=== PATIENT | male | born 1945 | race Caucasian/White ===

== ENCOUNTER 2016-10-04 23:55 | Emergency (ER) | payer BC ==
[~2016-10-04] VITALS: Ht 180.3 cm; Wt 80.1 kg
[~2016-10-04 23:55] MED LIST: BUPRTAB PO; ENOX1INJ9 SQ; EPP3/2 IM; LAMO200T PO; LORA-741 PO; PANT1TAB48 PO; PSYL55.43 PO
[2016-10-05] VITALS: TEMP 36.9; Ht 180.3 cm; Wt 80.1 kg
[2016-10-05] MEDS ORDERED: SODIUM CHLORIDE 0.9% 1000ML 250 ML IV STA (00:21)
[2016-10-05] MEDS ORDERED: SODIUM CHLORIDE 0.9% 1000ML 1,000 ML IV STA (00:21)
[2016-10-05] MEDS ORDERED: ONDANSETRON INJ 2 MG/ML 2 ML VIAL IV STA ×2 (00:21→03:22)
[2016-10-05] MEDS ORDERED: OPTIRAY 320 IV PRN (00:30)
--- NOTE | 2016-10-05 00:30 | EMERGENCY ROOM VISIT NOTE ---
History Report prepared by Brando: Le Chiu Under the Supervision of: Dr. Júnior Corcoran M.D. First contact with patient: 00:10 Chief Complaint: ABDOMINAL PAIN Stated Complaint: DISTENDED BELLY,ABDOMINAL AND LWR BACK PAIN History of Present Illness The patient is a 71 year old male who presents to the Emergency Room with complaints of worsening abdominal pain for the past 10 days. His pain radiates into his lower back. He went to the [facility] 6 days ago and had an abdominal x-ray that was normal. 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 He states that his cancer has returned and he was supposed to have surgery yesterday to remove the tumor. He was in [place] yesterday for his surgery and took his normal medications in the morning. After this he became very nauseated and diaphoretic. He vomited and passed out. His called EMS. She states the patient was pale and weak. He was also experiencing watery diarrhea. The patient was taken to the ED at [place]. He felt better after receiving Zofran and fluids. He was discharged home without having his surgery. The patient states that today his pain has persisted. He rates his current pain as a 7/10 in severity. He is feeling constipated and bloated. He had two bowel movements today but feels as though he has not been able to fully evacuate his bowels. He notes sharp abdominal pains when his bowels are moving. The patient denies dysuria and fever. He notes that morning nausea is normal for him. Source of History: patient, spouse/significant other Onset: 10 days ago Position: abdomen Symptom Intensity: 7/10 Quality: sharp Timing: worsening Modifying Factors (Relieving): anti-emetics, other (fluids) Associated Symptoms: + LOC, + back pain, + diaphoresis, + nausea, + vomiting , + weakness, No fevers, No urinary symptoms Review of Systems See HPI for pertinent positives & negatives. A total of 10 systems reviewed and were otherwise negative. Past Medical & Surgical Medical Problems: (1) GERD (gastroesophageal reflux disease) (2) GI bleed (3) H/O endoscopy (4) History of cancer Family History Cancer Social History Smoking Status: Never Smoker Alcohol Use: occasionally Drug Use: none Marital Status: Housing Status: lives with family Occupation Status: retired Current/Historical Medications Scheduled Bupropion Hcl (Wellbutrin Xl), 150 MG PO QAM Cholecalciferol (Vitamin D3), 1,000 UNITS PO DAILY Cyanocobalamin (Vitamin B-12), Unknown Dose PO DAILY Folic Acid (Folvite), 400 MCG PO DAILY Lamotrigine (Lamictal), 200 MG PO BID Pantoprazole (Protonix), 40 MG PO QAM Psyllium (Metamucil Powder), 1 TSP PO HS Scheduled PRN Acetaminophen (Tylenol), 500 MG PO Q8 PRN for Pain or Fever Epinephrine (Epipen), 0.3 MG IM UD PRN for ALLERGIC REACTION Lorazepam (Ativan), 0.5 MG PO Q6H PRN for Anxiety/Agitation Ondansetron Hcl (Zofran), 8 MG PO Q6H PRN for Nausea Polyethylene Glycol 3350 (Miralax), 17 GM PO DAILY PRN for Constipation Allergies Coded Allergies: Sulfa Antibiotics (Verified Allergy, Severe, ANAPHYLAXIS, BAD RASH, ) Doxycycline (Verified Allergy, Unknown, ITCHYNESS, 10/04/15) Yellow Jacket (Verified Allergy, Unknown, HIVES-SEVERE IN PAST-HAS EPIPEN , 10/04/15) NSAIDs (Verified Adverse Reaction, Unknown, gi bleed, 05/13/16) Physical Exam Vital Signs Date Time Temp Pulse Resp B/P Pulse Ox O2 Delivery O2 Flow Rate FiO2 10/05/16 00:00 36.9 71 18 157/75 100 Room Air Physical Exam GENERAL: Patient is in no acute distress. HEENT: No acute trauma, normocephalic atraumatic, mucous membranes moist, no nasal congestion, no scleral icterus. NECK: No stridor, no adenopathy, no meningismus, trachea is midline. LUNGS: Clear to auscultation bilaterally, no wheeze, no rhonchi, breath sounds equal. HEART: Without murmurs gallops or rubs, regular rate and rhythm. ABDOMEN: Soft, bilateral lower quadrant tenderness to palpation, bowel sounds positive and hyperactive, no hernias, no peritonitis. EXTREMITIES: No cyanosis or edema, full range of motion of all the joints without pain or difficulty, no signs for acute trauma. NEUROLOGIC: Oriented x 3, no acute motor or sensory deficits, no focal weakness. SKIN: No rash, no jaundice, no diaphoresis. Medical Decision & Procedures Laboratory Results 10/05/16 00:37 Red Blood Count 4.37, Mean Corpuscular Volume 83.1, Mean Corpuscular Hemoglobin 27.5, Mean Corpuscular Hemoglobin Concent 33.1, Mean Platelet Volume 11.1, Neutrophils (%) (Auto) 70.9, Lymphocytes (%) (Auto) 18.0, Monocytes (%) (Auto) 9.7, Eosinophils (%) (Auto) 0.8, Basophils (%) (Auto) 0.3, Neutrophils # (Auto) 6.18, Lymphocytes # (Auto) 1.57, Monocytes # (Auto) 0.85, Eosinophils # (Auto) 0.07, Basophils # (Auto) 0.03 10/05/16 00:37 Test 10/05/16 00:37 10/05/16 01:00 White Blood Count 8.73 K/uL (4.8-10.8) Red Blood Count 4.37 M/uL (4.7-6.1) Hemoglobin 12.0 g/dL (14.0-18.0) Hematocrit 36.3 % (42-52) Mean Corpuscular Volume 83.1 fL (80-100) Mean Corpuscular Hemoglobin 27.5 pg (25-34) Mean Corpuscular Hemoglobin Concent 33.1 g/dl (32-36) Platelet Count 247 K/uL (130-400) Mean Platelet Volume 11.1 fL (7.4-10.4) Neutrophils (%) (Auto) 70.9 % Lymphocytes (%) (Auto) 18.0 % Monocytes (%) (Auto) 9.7 % Eosinophils (%) (Auto) 0.8 % Basophils (%) (Auto) 0.3 % Neutrophils # (Auto) 6.18 K/uL (1.4-6.5) Lymphocytes # (Auto) 1.57 K/uL (1.2-3.4) Monocytes # (Auto) 0.85 K/uL (0.11-0.59) Eosinophils # (Auto) 0.07 K/uL (0-0.5) Basophils # (Auto) 0.03 K/uL (0-0.2) RDW Standard Deviation 46.2 fL (36.4-46.3) RDW Coefficient of Variation 15.2 % (11.5-14.5) Immature Granulocyte % (Auto) 0.3 % Immature Granulocyte # (Auto) 0.03 K/uL (0.00-0.02) Prothrombin Time 10.8 SECONDS (9.0-12.0) Prothromb Time International Ratio 1.0 (0.9-1.1) Activated Partial Thromboplast Time 28.1 SECONDS (21.0-31.0) Partial Thromboplastin Ratio 1.1 Anion Gap 7.0 mmol/L (3-11) Est Creatinine Clear Calc Drug Dose 50.0 ml/min Estimated GFR () 57.4 Estimated GFR (Non- 49.5 BUN/Creatinine Ratio 10.9 (10-20) Calcium Level 8.3 mg/dl (8.5-10.1) Total Bilirubin 0.3 mg/dl (0.2-1) Aspartate Amino Transf (AST/SGOT) 16 U/L (15-37) Alanine Aminotransferase (ALT/SGPT) 23 U/L (12-78) Alkaline Phosphatase 79 U/L (45-117) Total Protein 6.9 gm/dl (6.4-8.2) Albumin 3.9 gm/dl (3.4-5.0) Globulin 3.0 gm/dl (2.5-4.0) Albumin/Globulin Ratio 1.3 (0.9-2) Lipase 273 U/L (73-393) Lactic Acid Level 1.0 mmol/L (0.4-2.0) Laboratory results reviewed by me. Medications Administered Medications (Trade) Dose Ordered Sig/Sapna Route Start Time Stop Time Status Last Admin Dose Admin Sodium Chloride (Nss 1000ml) 250 ml @ 999 mls/hr Q16M STAT IV 10/05/16 00:21 10/05/16 00:36 DC 10/05/16 01:00 999 MLS/HR Ondansetron HCl 4 mg 4 mg NOW STAT IV 10/05/16 00:21 10/05/16 00:24 DC 10/05/16 01:00 4 MG Sodium Chloride (Nss 1000ml) 1,000 ml @ 125 mls/hr Q8H STAT IV 10/05/16 00:21 10/05/16 08:20 10/05/16 01:00 125 MLS/HR ED Course 0010: The patient was evaluated in room B10. A complete history and physical exam was performed. 0021: NSS 1000 ml @ 125 mls/hr IV, Zofran 4 mg IV, NSS 250 ml @ 999 mls/hr IV 0122: I reassessed the patient at this time and updated him on the lab results. I answered all pertaining questions that he had. 0230: The patient was signed out to Dr. Lombardi at the change of shift. Medical Decision Differential diagnoses includes diverticulitis, bowel obstruction, intraabdominal mass, dehydration, electrolyte imbalance, colitis, prostatitis, UTI, hernia, musculoskeletal pain. There is no leukocytosis or concerning anemia. No significant electrolyte abnormality, kidney failure, hepatitis or pancreatitis. Lactic acid level is not elevated making bowel ischemia less likely. Urinalysis result is pending. On exam, the patient did not have peritonitis. His bowel sounds were hyperactive. There was no obvious hernia. He was not toxic or febrile. The patient presents with escalating abdominal pain. A CT of the abdomen and pelvis has been ordered for the possibility of diverticulitis, colitis or intra- abdominal mass. As noted above, we are still awaiting his urinalysis results- he has not yet provided a sample. The patient received IV saline, IV Zofran, he is drinking his oral contrast for the CT. He does not want anything for pain. The case is going to be assumed by Dr. Lombardi, she is the oncoming doctor at the change of shift. Please see her notes for the final results from the CT scan as well as the patient's final disposition and plan. At this point, the cause for the pain is unclear. Impression Primary Impression: Lower abdominal pain Scribe Attestation The scribe's documentation has been prepared under my direction and personally reviewed by me in its entirety. I confirm that the note above accurately reflects all work, treatment, procedures, and medical decision making performed by me. Departure Information Dispostion Still a Patient Referrals Balaji Mejia M.D. (PCP) Patient Instructions A Signature Page
[2016-10-05 00:51] LABS: BASO % 0.3 %; BASO ABS # 0.03 K/uL (0-0.2); COMPLETE YES; EOS % 0.8 %; HEMATOCRIT 36.3 % (42-52); IG% 0.3 %; LYMPH ABS # 1.57 K/uL (1.2-3.4); MEAN CELL VOLUME 83.1 fL (80-100); MEAN CORPUSCULAR HEMOGLOBIN 27.5 pg (25-34); MEAN CORPUSCULAR HGB CONC 33.1 g/dl (32-36); MEAN PLATELET VOLUME 11.1 fL (7.4-10.4); MONO % 9.7 %; NEUT % 70.9 %; PLATELET COUNT 247 K/uL (130-400); RED BLOOD COUNT 4.37 M/uL (4.7-6.1); WHITE BLOOD COUNT 8.73 K/uL (4.8-10.8)
[2016-10-05] MEDS ORDERED: POLY335019 PO (00:56)
[2016-10-05] MEDS ORDERED: ONDA8TAB6 PO (00:57)
[2016-10-05] MEDS ORDERED: FOLI400T41 PO (00:58)
[2016-10-05] MEDS ORDERED: CYAN500T PO (00:59)
[2016-10-05] MEDS ORDERED: ACET-1256 PO (01:00)
[2016-10-05 01:01] LABS: PARTIAL THROMBOPLASTIN RATIO 1.1; PROTHROMBIN TIME (PATIENT) 10.8 SECONDS (9.0-12.0)
[2016-10-05] MEDS ORDERED: CHOL1000 PO (01:01)
[2016-10-05 01:10] LABS: BUN/CREATININE RATIO 10.9 (10-20); CALCIUM 8.3 mg/dl (8.5-10.1); CREATININE 1.4 mg/dl (0.60-1.40); POTASSIUM 3.9 mmol/L (3.5-5.1)
[2016-10-05 01:13] LABS: ALB/GLOB RATIO 1.3 (0.9-2)
[2016-10-05] MEDS ORDERED: ENOXAPARIN 40 MG/0.4 ML SYR SQ ONE (02:00)
[2016-10-05 02:04] LABS: URINE APPEARANCE CLEAR (CLEAR); URINE BILIRUBIN NEG (NEG); URINE COLOR YELLOW; URINE NITRITE NEG (NEG); URINE SPECIFIC GRAVITY 1.004 (1.000-1.030); UROBILINOGEN NEG (NEG); ZZUR CULT IF INDIC CLEAN CATCH NO
[2016-10-05 02:09] LABS: MANUAL MICROSCOPIC REQUIRED? NO; REVIEW REQ? NO
[2016-10-05] MEDS ORDERED: HYDROmorphone INJ 1 MG/ML SYR IV STA (03:15)
[2016-10-05] MEDS ORDERED: MoRPHine SULFATE 4 MG/ML 1 ML CARP\\VIAL IV STA (03:22)
--- NOTE | 2016-10-05 04:34 | EMERGENCY ROOM VISIT NOTE ---
ED Visit Note First contact with patient: 01:19 This case was signed out to me at change of shift awaiting CT scan of the abdomen/pelvis. The patient is currently taking an oral prep 02:00: I checked on the patient at this time and he is taking his prep without any difficulty. The patient takes Lovenox shots daily for stuttering priapism. He was given his usual dose at 40 mg subcutaneous. 0320: The patient was complaining of increased left-sided abdominal pain after returning from CAT scan. He was given 4 mg of IV morphine and 4 mg of IV Zofran. Stat rad interpreted the contrasted CAT scan of the abdomen and pelvis: Complex, partially cystic or necrotic mass lesion in the pelvis measuring about 7.7 cm. Adjacent fluid collection measuring 3 x 1.5 cm. Small hiatal hernia. 2 small to characterize low attenuation focus in the left kidney. Sutures related to the bowel. Few colonic diverticula without diverticulitis. The prostate is not visualized. Old right rib fractures. Spondylolysis at L5 with spondylolisthesis at L5-S1. 0355: I reviewed the results of the CT scan with the patient and his . He is more comfortable at this time after receiving the morphine. I will discuss the case with surgery in [place]. 0425: I discussed the case with Dr. Campos from [place]. He is the patient's surgeon. He is quite familiar with the case. I reviewed the results of the CT scan with him. He would like to see the patient in follow-up in clinic this week. They're office will contact the patient on Friday morning with an appointment. We will make a CD with the CT scan on it for their review. The patient was instructed to use oxycodone for pain. If his pain becomes unbearable or he develops a fever, he should contact the on-call surgical team at [place] at the direction of Dr. Campos.
[2016-10-05] MEDS ORDERED: OXYC1TAB3 PO (04:57)
[2016-10-05 05:02] VITALS: BP 149/76; PULSE 69; O2SAT 96
--- NOTE | 2016-10-05 08:33 | DIAGNOSTIC IMAGING REPORT ---
CT OF THE ABDOMEN AND PELVIS WITH CONTRAST CLINICAL HISTORY: Abdominal pain and distention. History of GI stromal tumor, lung cancer and prostate cancer. COMPARISON STUDY: CT of the abdomen and pelvis August 12, 2016 and abdominal series September 28, 2016 TECHNIQUE: Following IV administration of 119 mL of Optiray-320, axial images of the abdomen and pelvis were obtained from the lung bases to the proximal femurs. Images were reviewed in the axial, sagittal, and coronal planes. IV contrast was administered without complication. Oral contrast was administered. CT DOSE: 368.44 mGy.cm FINDINGS: Bilateral gynecomastia is noted. The liver, spleen, adrenal glands, kidneys and pancreas are unremarkable. A low-attenuation subcentimeter left renal lesion is likely benign. There is no hydronephrosis. The appendix is normal. There is no evidence for a bowel obstruction. Postsurgical findings adjacent to the medial base of the cecum are noted. Note is made of a 7 x 6.3 x 5 cm necrotic peripherally enhancing mass within the central pelvis, located anterior to the rectum and superior to the bladder. This has increased in size since exam of August 12, 2016. There is a 4.2 x 2.1 cm cystic abnormality along the right aspect of this mass. There is trace ascites. No pneumatosis, free air or portal venous gas is present. The prostate gland is not visualized. No suspicious osseous lesions are identified. IMPRESSION: 1. Significant interval increase in size of the previously described central pelvic mass which now appears necrotic. This is highly suggestive of a neoplastic process and may reflect a peritoneal implant. Small adjacent cystic abnormality may reflect loculated fluid or necrotic implant. 2. No evidence for a bowel obstruction. Otherwise, unchanged appearance of the abdomen and pelvis. Electronically signed by: Nadir Doyle M.D. 10/05/2016 8:31 AM Dictated Date/Time: 10/05/2016 8:14 AM
== END 2016-10-05 05:02 | disposition home or self-care (01) ==
LOC: C.EDB 23:58
DX: R10.30 Lower abdominal pain, unspecified (principal); K21.9 Gastro-esophageal reflux disease without esophagitis; R11.2 Nausea with vomiting, unspecified; Z85.9 Personal history of malignant neoplasm, unspecified; Z79.899 Other long term (current) drug therapy; Z88.2 Allergy status to sulfonamides; Z88.8 Allergy status to other drugs, medicaments and biological substances; Z91.030 Bee allergy status; Z80.9 Family history of malignant neoplasm, unspecified; K44.9 Diaphragmatic hernia without obstruction or gangrene; N20.0 Calculus of kidney; K57.90 Diverticulosis of intestine, part unspecified, without perforation or abscess without bleeding; M47.16 Other spondylosis with myelopathy, lumbar region; M43.18 Spondylolisthesis, sacral and sacrococcygeal region

== ENCOUNTER → 2016-10-31 | Outpatient (CLI) | payer BC ==
[~2016-10-31] MED LIST changes: +ACET-1256 PO; +CHOL1000 PO; +CYAN500T PO; -ENOX1INJ9 SQ; +ENOX40IN SQ; +FOLI400T41 PO; +ONDA8TAB6 PO; +OXYC1TAB3 PO; +POLY335019 PO; +PSYL58.636 PO; +RANI300T PO; +RXC5 PO; +SUNI37.5 PO; +TRAM-10 PO; +TYLOTC500 PO
== END | disposition home or self-care (01) ==
LOC: C.LABSPEC 13:40
PROVIDERS: ATTEND Surgery
DX: C49.A0 Gastrointestinal stromal tumor, unspecified site (principal); R19.5 Other fecal abnormalities

== ENCOUNTER → 2016-12-18 | Outpatient (CLI) | payer BC ==
[2016-12-18 17:00] LABS: BASO % 0.3 %; BASO ABS # 0.01 K/uL (0-0.2); COMPLETE YES; EOS % 3.4 %; HEMATOCRIT 33.6 % (42-52); IG% 0.3 %; LYMPH % 14.1 %; MEAN CELL VOLUME 77.4 fL (80-100); MEAN CORPUSCULAR HEMOGLOBIN 24.7 pg (25-34); MEAN CORPUSCULAR HGB CONC 31.8 g/dl (32-36); MEAN PLATELET VOLUME 11.1 fL (7.4-10.4); MONO % 6.2 %; NEUT % 75.7 %; PLATELET COUNT 121 K/uL (130-400); RED BLOOD COUNT 4.34 M/uL (4.7-6.1); WHITE BLOOD COUNT 3.54 K/uL (4.8-10.8)
[2016-12-18 17:18] LABS: ALB/GLOB RATIO 1.1 (0.9-2); ALKALINE PHOSPHATASE 91 U/L (45-117); ALT/SGPT 28 U/L (12-78); AST/SGOT 28 U/L (15-37); BLOOD UREA NITROGEN 18 mg/dl (7-18); BUN/CREATININE RATIO 12.6 (10-20); CALCIUM 8.5 mg/dl (8.5-10.1); CARBON DIOXIDE 25 mmol/L (21-32); CHLORIDE 108 mmol/L (98-107); GLUCOSE 131 mg/dl (70-99); SODIUM 140 mmol/L (136-145)
[2016-12-18 17:42] LABS: URINE APPEARANCE TURBID (CLEAR); URINE BILIRUBIN NEG (NEG); URINE COLOR DK YELLOW; URINE NITRITE NEG (NEG); URINE SPECIFIC GRAVITY 1.033 (1.000-1.030); UROBILINOGEN NEG (NEG)
[2016-12-18 17:51] LABS: MANUAL MICROSCOPIC REQUIRED? NO; REVIEW REQ? NO
== END | disposition home or self-care (01) ==
LOC: C.LABBC 15:24
PROVIDERS: ATTEND Internal Medicine
DX: R53.83 Other fatigue (principal)

== ENCOUNTER → 2016-12-20 | Outpatient (CLI) | payer BC ==
--- NOTE | 2016-12-20 13:09 | DIAGNOSTIC IMAGING REPORT ---
CHEST 2 VIEWS ROUTINE CLINICAL HISTORY: R50.9 [id number] COMPARISON STUDY: 09/28/2016 FINDINGS: The cardiac and mediastinal contours are normal. There is no evidence of focal pulmonary consolidation. There is no evidence of failure. No pleural effusions are visualized.[ There is a stable scarlike opacity within the left midlung zone laterally. IMPRESSION: Stable scarlike density within the left midlung zone laterally. No acute findings. Electronically signed by: Job Redding M.D. 12/20/2016 1:08 PM Dictated Date/Time: 12/20/2016 1:07 PM
[2016-12-20 16:35] LABS: MEAN CORPUSCULAR HGB CONC 31.6 g/dl (32-36)
[2016-12-20 16:59] LABS: HEMATOCRIT 34.8 % (42-52); MEAN CELL VOLUME 79.3 fL (80-100); MEAN CORPUSCULAR HEMOGLOBIN 25.1 pg (25-34); RED BLOOD COUNT 4.39 M/uL (4.7-6.1); WHITE BLOOD COUNT 3.39 K/uL (4.8-10.8)
[2016-12-20 17:25] LABS: BASO % 0.9 %; BASO ABS # 0.03 K/uL (0-0.2); COMPLETE YES; EOS % 1.8 %; GIANT PLATELETS 1+; IG% 0.6 %; LARGE PLATELETS 2+; LYMPH % 19.2 %; LYMPH ABS # 0.65 K/uL (1.2-3.4); MEAN PLATELET VOLUME 11.3 fL (7.4-10.4); MONO % 7.1 %; NEUT % 70.4 %; PLATELET COUNT 101 K/uL (130-400); PLT ESTIMATE DECREASED
== END | disposition home or self-care (01) ==
LOC: C.RADBC 12:37
PROVIDERS: ATTEND Internal Medicine
DX: R50.9 Fever, unspecified (principal)

== ENCOUNTER 2017-02-13 07:02 | Inpatient (IN) | payer BC, OTHER ==
[~2017-02-13] VITALS: Ht 182.9 cm; Wt 75.7 kg
[~2017-02-13 07:02] MED LIST changes: -ENOX40IN SQ; -PSYL58.636 PO; -RANI300T PO; -RXC5 PO; -SUNI37.5 PO; -TRAM-10 PO; -TYLOTC500 PO
[2017-02-13] MEDS ORDERED: SUNI37.5 PO (07:12)
[2017-02-13] MEDS ORDERED: PSYL58.636 PO (07:12)
[2017-02-13] MEDS ORDERED: RANI300T PO (07:12)
[2017-02-13] MEDS ORDERED: ENOX40IN SQ (07:13)
[2017-02-13] MEDS ORDERED: SODIUM CHLORIDE 0.9% 1000ML 1,000 ML IV STA (07:25)
[2017-02-13] MEDS ORDERED: PROMETHAZINE HCL INJ 12.5 MG in SODIUM CHLORIDE 0.9% 50ML 50 ML IV STA (07:25)
--- NOTE | 2017-02-13 07:35 | EMERGENCY ROOM VISIT NOTE ---
History Report prepared by Brando: Memo Hurley Under the Supervision of: Dr. Sarina Brody M.D. First contact with patient: 07:12 Chief Complaint: ABDOMINAL PAIN Stated Complaint: ABDOMINAL PAIN Nursing Triage Summary: nauseated with abdomen pain started at 0300. hx with abd surgery History of Present Illness The patient is a 71 year old male who presents to the Emergency Room with complaints of intermittent abdominal pain. The patient states that he has been experiencing intermittent "sharp" and "intense" abdominal pains since he had two gastrointestinal tumors removed on October 17 of this year. His pain on set at 0300 this morning, 4.5 hours prior to arrival. The pain is diffuse across his abdomen and is not localized to any one area. He notes that his pain today is much worse than it has been in the past. The patient notes that he had a normal bowel movement this morning, which did not relieve or worsen the pain to any degree. He also felt nauseated and diaphoretic this morning and felt as though he may pass out. He did not lose consciousness at anytime, and took an 8 mg Zofran tablet to remedy his nausea. The patient has a history of GERD, but denies that this pain feels like his normal "burning" with GERD flairs. He received Morphine via EMS prior to arrival. 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 A total of 10 systems reviewed and were otherwise negative. Past Medical & Surgical Medical Problems: (1) GERD (gastroesophageal reflux disease) (2) GI bleed (3) H/O endoscopy (4) History of cancer (5) SBO (small bowel obstruction) Family History Cancer Social History Smoking Status: Former Smoker Alcohol Use: occasionally Drug Use: none Marital Status: Housing Status: lives with family Occupation Status: retired Current/Historical Medications Scheduled Bupropion Hcl (Wellbutrin Xl), 150 MG PO QAM Cholecalciferol (Vitamin D3), 1,000 UNITS PO DAILY Cyanocobalamin (Vitamin B-12), 500 MCG PO DAILY Enoxaparin (Lovenox), 40 MG SQ HS Folic Acid (Folvite), 400 MCG PO DAILY Lamotrigine (Lamictal), 200 MG PO BID Pantoprazole (Protonix), 40 MG PO QAM Psyllium (Metamucil Fiber), 1 DOSE PO HS Ranitidine Hcl (Zantac), 300 MG PO HS Sunitinib Malate (Sutent), 37.5 MG PO QPM Scheduled PRN Acetaminophen (Tylenol), 1,000 MG PO Q6 PRN for Pain or Fever Epinephrine (Epipen), 0.3 MG IM UD PRN for ALLERGIC REACTION Lorazepam (Ativan), 0.5 MG PO Q6H PRN for Anxiety/Agitation Ondansetron Hcl (Zofran), 8 MG PO Q6H PRN for Nausea Oxycodone HCl (Oxycodone HCl), 5-10 MG PO Q6H PRN for Pain Tramadol (Ultram), 50 MG PO Q8H PRN for Pain Allergies Coded Allergies: Sulfa Antibiotics (Verified Allergy, Severe, ANAPHYLAXIS, BAD RASH, ) Doxycycline (Verified Allergy, Unknown, ITCHYNESS, 02/13/17) Yellow Jacket (Verified Allergy, Unknown, HIVES-SEVERE IN PAST-HAS EPIPEN , 02/13/17) Hydromorphone (Unverified Adverse Reaction, Intermediate, Dizzy, 02/13/17) NSAIDs (Verified Adverse Reaction, Unknown, gi bleed, 02/13/17) Physical Exam Vital Signs Date Time Temp Pulse Resp B/P Pulse Ox O2 Delivery O2 Flow Rate FiO2 02/13/17 09:14 62 16 151/84 100 Room Air 02/13/17 07:57 56 02/13/17 07:44 58 16 98 Room Air 02/13/17 07:09 36.4 80 18 168/83 98 Room Air Physical Exam Vital signs reviewed. General: Well-appearing elderly male, in no significant distress. HEENT: No scleral icterus, PERRLA, neck supple. Atraumatic. Cardiovascular: Regular rate and rhythm, no extra sounds. Pulmonary: Clear to auscultation bilaterally, normal work of breathing. Abdomen: Soft, with mild upper abdominal tenderness. mild distention, no tympani to percussion. Positive bowel sounds. Musculoskeletal: Atraumatic, no peripheral edema. Neurologic: Patient awake alert and oriented x 3, full strength in all 4 extremities. Cranial nerves 2 through 12 grossly intact. Skin: Warm, dry, no rash Medical Decision & Procedures ER Provider Diagnostic Interpretation: Radiology results as stated below per my review and radiologist interpretation: CT ABD/PELVIS IV AND ORAL CONT CLINICAL HISTORY: Central abdominal pain. Bloating. Possible small bowel obstruction. COMPARISON STUDY: 10/05/2016 TECHNIQUE: Following the IV administration of 93 mL of Optiray-320, CT scan of the abdomen and pelvis was performed from the lung bases to the proximal femurs. Images are reviewed in the axial, sagittal, and coronal planes. IV contrast was administered without complication. CT DOSE: 619.64 mGycm FINDINGS: Lower chest: There are mild dependent atelectatic changes. Liver: There is mild hepatic steatosis. No focal masses are visualized. Gallbladder: Unremarkable. Spleen: Normal in size and attenuation. Pancreas: Unremarkable. Adrenal glands: Unremarkable. Kidneys: There is symmetric renal cortical enhancement. The kidneys are normal in size without hydronephrosis. Bowel: Postsurgical changes are present. Several suture lines are visualized. There is a mildly dilated right mid abdominal small bowel loop measuring 34 mm in diameter. There are thick walled central and right lower quadrant small bowel loops. There are multiple fluid-filled small bowel loops. The distal small bowel is of normal caliber. The findings are consistent with a partial small bowel obstruction. Peritoneum: There is a small amount of free pelvic fluid present. No free air is visualized. Vasculature: The abdominal aorta is normal in course and caliber. Adenopathy: None. Pelvic viscera: The bladder, and pelvic viscera are unremarkable. Skeletal structures: There is bilateral L5 spondylolysis. There is a grade 1 spondylolisthesis of L5 and S1. IMPRESSION: 1. Mildly dilated fluid-filled small bowel loops with normal caliber distal small bowel. The findings are consistent with a partial or early small bowel obstruction 2. Multiple thick walled right mid and lower quadrant small bowel loops, consistent with a nonspecific enteritis. 3. Small amount of interloop and pelvic fluid. 4. No free air, pneumatosis, or portal venous gas identified Electronically signed by: Job Redding M.D. 02/13/2017 10:37 AM Dictated Date/Time: 02/13/2017 10:29 AM Laboratory Results Test 02/13/17 07:40 02/13/17 09:45 Immature Granulocyte % (Auto) 0.2 % White Blood Count 4.77 K/uL (4.8-10.8) Red Blood Count 4.56 M/uL (4.7-6.1) Hemoglobin 11.7 g/dL (14.0-18.0) Hematocrit 36.2 % (42-52) Mean Corpuscular Volume 79.4 fL (80-100) Mean Corpuscular Hemoglobin 25.7 pg (25-34) Mean Corpuscular Hemoglobin Concent 32.3 g/dl (32-36) Platelet Count 160 K/uL (130-400) Mean Platelet Volume 10.9 fL (7.4-10.4) Neutrophils (%) (Auto) 74.7 % Lymphocytes (%) (Auto) 15.9 % Monocytes (%) (Auto) 8.2 % Eosinophils (%) (Auto) 0.6 % Basophils (%) (Auto) 0.4 % Neutrophils # (Auto) 3.56 K/uL (1.4-6.5) Lymphocytes # (Auto) 0.76 K/uL (1.2-3.4) Monocytes # (Auto) 0.39 K/uL (0.11-0.59) Eosinophils # (Auto) 0.03 K/uL (0-0.5) Basophils # (Auto) 0.02 K/uL (0-0.2) Immature Granulocyte # (Auto) 0.01 K/uL (0.00-0.02) Prothrombin Time 10.3 SECONDS (9.0-12.0) Prothromb Time International Ratio 1.0 (0.9-1.1) Activated Partial Thromboplast Time 25.3 SECONDS (21.0-31.0) Partial Thromboplastin Ratio 1.0 Total Bilirubin 0.4 mg/dl (0.2-1) Direct Bilirubin 0.1 mg/dl (0-0.2) Aspartate Amino Transf (AST/SGOT) 17 U/L (15-37) Alanine Aminotransferase (ALT/SGPT) 25 U/L (12-78) Alkaline Phosphatase 101 U/L (45-117) Total Protein 6.7 gm/dl (6.4-8.2) Albumin 3.8 gm/dl (3.4-5.0) Lipase 239 U/L (73-393) Thyroid Stimulating Hormone (TSH) 5.060 uIu/ml (0.300-4.500) Urine Color YELLOW Urine Appearance CLEAR (CLEAR) Urine pH 7.5 (4.5-7.5) Urine Specific [place] 1.014 (1.000-1.030) Urine Protein NEG (NEG) Urine Glucose (UA) NEG (NEG) Urine Ketones NEG (NEG) Urine Occult Blood NEG (NEG) Urine Nitrite NEG (NEG) Urine Bilirubin NEG (NEG) Urine Urobilinogen NEG (NEG) Urine Leukocyte Esterase NEG (NEG) Laboratory results per my review. Medications Administered Medications (Trade) Dose Ordered Sig/Sapna Route Start Time Stop Time Status Last Admin Dose Admin Sodium Chloride 1,000 ml @ 125 mls/hr Q8H STAT IV 02/13/17 07:25 02/13/17 12:45 DC 02/13/17 07:40 125 MLS/HR Promethazine HCl/ Sodium Chloride (Phenergan Inj/ Nss 50ml) 50.5 ml @ 204 mls/hr NOW STAT IV 02/13/17 07:25 02/13/17 07:39 DC 02/13/17 07:25 204 MLS/HR Morphine Sulfate (MoRPHine SULFATE INJ) 3 mg Q3H PRN IV 02/13/17 11:00 02/14/17 13:25 DC 02/13/17 13:48 3 MG ED Course 0717: Past medical records reviewed. The patient was evaluated in room B11B. A complete history and physical examination was performed. 0725: Ordered Promethazine HCl 50.5 mL @ 204 mL/hr IV, Sodium Chloride 1000 mL @ 125 mL/hr IV. 1053: I discussed the case with Dr. Diamante Juarez [facility] Hospitalist, he will evaluate the patient for further treatment. Medical Decision Differential diagnosis: Etiologies such as appendicitis, diverticulitis, PUD, biliary pathology, UTI, pancreatitis, obstruction, mesenteric ischemia, aortic pathology, infections, inflammatory bowel disease, renal colic, as well as others were entertained. This patient was evaluated and appeared to be in no significant distress. IV access was obtained and laboratory work was drawn. 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 He was hydrated with normal saline solution. CT scan of the abdomen and pelvis was performed and reveals evidence of a likely partial small bowel obstruction. The patient was given IV Phenergan for continued nausea despite his Zofran at home. IV hydration was continued. The case was discussed with the hospitalist service, Dr. Bobby, who has agreed to evaluate the patient for admission and further management. Consults Time Called: 1045 Consulting Physician: Dr. Diamante [facility] Hospitalist Returned Call: [phone] I discussed the case with Dr. Diamante [facility] Hospitalist, he will evaluate the patient for further treatment. Impression Primary Impression: Partial small bowel obstruction Scribe Attestation The scribe's documentation has been prepared under my direction and personally reviewed by me in its entirety. I confirm that the note above accurately reflects all work, treatment, procedures, and medical decision making performed by me. Departure Information Dispostion Being Evaluated By Hospitalist Prescriptions Oxycodone HCl (Oxycodone HCl) 5 Mg Tab 5-10 MG PO Q6H Y for Pain, #30 Prov: Gustavo Carroll M.D. 02/14/17 Tramadol (Ultram) 50 Mg Tab 50 MG PO Q8H Y for Pain, #60 TAB Prov: Gustavo Carroll M.D. 02/14/17 Acetaminophen (Tylenol) 500 Mg Tab 1000 MG PO Q6 Y for Pain or Fever, #120 TAB Prov: Gustavo Carroll M.D. 02/14/17 Referrals Balaji Mejia M.D. (PCP) Patient Instructions My [facility]
[2017-02-13 07:48] LABS: BASO % 0.4 %; BASO ABS # 0.02 K/uL (0-0.2); COMPLETE YES; EOS % 0.6 %; HEMATOCRIT 36.2 % (42-52); IG% 0.2 %; LYMPH % 15.9 %; LYMPH ABS # 0.76 K/uL (1.2-3.4); MEAN CELL VOLUME 79.4 fL (80-100); MEAN CORPUSCULAR HEMOGLOBIN 25.7 pg (25-34); MEAN CORPUSCULAR HGB CONC 32.3 g/dl (32-36); MEAN PLATELET VOLUME 10.9 fL (7.4-10.4); MONO % 8.2 %; NEUT % 74.7 %; PLATELET COUNT 160 K/uL (130-400); RED BLOOD COUNT 4.56 M/uL (4.7-6.1); WHITE BLOOD COUNT 4.77 K/uL (4.8-10.8)
[2017-02-13 08:06] LABS: BUN/CREATININE RATIO 19.3 (10-20); CALCIUM 8.3 mg/dl (8.5-10.1); CREATININE 1.2 mg/dl (0.60-1.40); POTASSIUM 3.9 mmol/L (3.5-5.1)
[2017-02-13 08:17] LABS: THYROID STIMULATING HORMONE 5.06 uIu/ml (0.300-4.500)
[2017-02-13 10:09] LABS: URINE APPEARANCE CLEAR (CLEAR); URINE BILIRUBIN NEG (NEG); URINE COLOR YELLOW; URINE NITRITE NEG (NEG); URINE PH 7.5 (4.5-7.5); URINE SPECIFIC GRAVITY 1.014 (1.000-1.030); UROBILINOGEN NEG (NEG); ZZUR CULT IF INDIC CLEAN CATCH NO
[2017-02-13 10:16] LABS: MANUAL MICROSCOPIC REQUIRED? NO; REVIEW REQ? NO
[2017-02-13] MEDS ORDERED: OPTIRAY 320 IV PRN (10:30)
--- NOTE | 2017-02-13 10:38 | DIAGNOSTIC IMAGING REPORT ---
CT ABD/PELVIS IV AND ORAL CONT CLINICAL HISTORY: Central abdominal pain. Bloating. Possible small bowel obstruction. COMPARISON STUDY: 10/05/2016 TECHNIQUE: Following the IV administration of 93 mL of Optiray-320, CT scan of the abdomen and pelvis was performed from the lung bases to the proximal femurs. Images are reviewed in the axial, sagittal, and coronal planes. IV contrast was administered without complication. CT DOSE: 619.64 mGycm FINDINGS: Lower chest: There are mild dependent atelectatic changes. Liver: There is mild hepatic steatosis. No focal masses are visualized. Gallbladder: Unremarkable. Spleen: Normal in size and attenuation. Pancreas: Unremarkable. Adrenal glands: Unremarkable. Kidneys: There is symmetric renal cortical enhancement. The kidneys are normal in size without hydronephrosis. Bowel: Postsurgical changes are present. Several suture lines are visualized. There is a mildly dilated right mid abdominal small bowel loop measuring 34 mm in diameter. There are thick walled central and right lower quadrant small bowel loops. There are multiple fluid-filled small bowel loops. The distal small bowel is of normal caliber. The findings are consistent with a partial small bowel obstruction. Peritoneum: There is a small amount of free pelvic fluid present. No free air is visualized. Vasculature: The abdominal aorta is normal in course and caliber. Adenopathy: None. Pelvic viscera: The bladder, and pelvic viscera are unremarkable. Skeletal structures: There is bilateral L5 spondylolysis. There is a grade 1 spondylolisthesis of L5 and S1. IMPRESSION: 1. Mildly dilated fluid-filled small bowel loops with normal caliber distal small bowel. The findings are consistent with a partial or early small bowel obstruction 2. Multiple thick walled right mid and lower quadrant small bowel loops, consistent with a nonspecific enteritis. 3. Small amount of interloop and pelvic fluid. 4. No free air, pneumatosis, or portal venous gas identified Electronically signed by: Job Redding M.D. 02/13/2017 10:37 AM Dictated Date/Time: 02/13/2017 10:29 AM
--- NOTE | 2017-02-13 10:58 | History and Physical ---
History & Physical Date & Time of Service: February 13, 2017 at 10:53 Chief Complaint: Abdominal Pain Primary Care Physician: Balaji Mejia M.D. 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 Presents with abdominal pain and nausea x 2-3 days. He states that he has had intermittent similar symptoms starting 2 weeks after his September surgery. He denies fevers, vomiting, diarrhea or constipation. A CT abdomen is consistent with a partial or early SBO. The pt was treated with Gleevec x 2 years following resection and recently started Sutent. 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 at [facility] - Treated with Gleevec x 2 years - currently resistant and switched to Sutent 6) Bipolar disease 7) Primary lung CA - small L lung lesion treated with ablation 2014 8) Bladder CA - cystoscopic resection 2014 9) Recurrent priapism - unclear etiology - treated with Q Lovenox Family History Cancer Father - CHF, SBO Mother - Leukemia Social History Quit smoking 1975 Smoking Status: Former Smoker Drug Use: none Marital Status: Housing status: lives with family Occupational Status: retired Multi-Drug Resistant Organisms History of MDRO: No Allergies Coded Allergies: Sulfa Antibiotics (Verified Allergy, Severe, ANAPHYLAXIS, BAD RASH, ) Doxycycline (Verified Allergy, Unknown, ITCHYNESS, 02/13/17) Yellow Jacket (Verified Allergy, Unknown, HIVES-SEVERE IN PAST-HAS EPIPEN , 02/13/17) Hydromorphone (Unverified Adverse Reaction, Intermediate, Dizzy, 02/13/17) NSAIDs (Verified Adverse Reaction, Unknown, gi bleed, 02/13/17) Home Medications Scheduled Bupropion Hcl (Wellbutrin Xl), 150 MG PO QAM Cholecalciferol (Vitamin D3), 1,000 UNITS PO DAILY Cyanocobalamin (Vitamin B-12), 500 MCG PO DAILY Enoxaparin (Lovenox), 40 MG SQ HS Folic Acid (Folvite), 400 MCG PO DAILY Lamotrigine (Lamictal), 200 MG PO BID Pantoprazole (Protonix), 40 MG PO QAM Psyllium (Metamucil Fiber), 1 DOSE PO HS Ranitidine Hcl (Zantac), 300 MG PO HS Sunitinib Malate (Sutent), 37.5 MG PO QPM Scheduled PRN Acetaminophen (Tylenol), 500 MG PO Q8 PRN for Pain or Fever Epinephrine (Epipen), 0.3 MG IM UD PRN for ALLERGIC REACTION Lorazepam (Ativan), 0.5 MG PO Q6H PRN for Anxiety/Agitation Ondansetron Hcl (Zofran), 8 MG PO Q6H PRN for Nausea Review of Systems Constitutional: No chills, No fever, No sweats Eyes: No eye pain, No worsening of vision ENT: No hearing loss, No nasal symptoms, No unusual epistaxis Respiratory: No cough, No sputum, No wheezing Cardiovascular: No PND, No chest pain, No orthopnea Abdomen: + nausea, + pain, No constipation, No diarrhea, No vomiting Musculoskeletal: No joint pain, No muscle pain Genitourinary - Male: No dysuria, No hematuria, No urinary frequency, No urinary urgency Neurologic: No memory loss, No paralysis, No weakness Psychiatric: No depression symptoms Endocrine: No fatigue Hematologic / Lymphatic: No abnormal bleeding/bruising Integumentary: No rash Allergic / Immunologic: No environmental allergies Physical Exam Vital Signs Date Time Temp Pulse Resp B/P Pulse Ox O2 Delivery O2 Flow Rate FiO2 02/13/17 09:14 62 16 151/84 100 Room Air 02/13/17 07:57 56 02/13/17 07:44 58 16 98 Room Air 02/13/17 07:09 36.4 80 18 168/83 98 Room Air General Appearance: WD/WN, no apparent distress Head: normocephalic, atraumatic Eyes: normal inspection, PERRL, EOMI ENT: normal ENT inspection, hearing grossly normal, pharynx normal Neck: supple, no JVD Respiratory/Chest: chest non-tender, lungs clear, normal breath sounds, no respiratory distress, no accessory muscle use Cardiovascular: regular rate, rhythm, no edema, no gallop, no JVD, no murmur, normal peripheral pulses Abdomen/GI: + pertinent finding (Mild distention - no pain to palpation - hypoactive bowel sounds) Back: normal inspection, no CVA tenderness Extremities/Musculoskelatal: normal inspection, no calf tenderness, normal capillary refill, no pedal edema, normal range of motion Neurologic/Psych: hay sorter II-XII nml as tested, no motor/sensory deficits, alert, oriented x 3 Skin: normal color, warm/dry, no rash Diagnostics Laboratory Results Results Past 24 Hours Test 02/13/17 07:40 02/13/17 09:45 Range/Units White Blood Count 4.77 4.8-10.8 K/uL Red Blood Count 4.56 4.7-6.1 M/uL Hemoglobin 11.7 14.0-18.0 g/dL Hematocrit 36.2 42-52 % Mean Corpuscular Volume 79.4 80-100 fL Mean Corpuscular Hemoglobin 25.7 25-34 pg Mean Corpuscular Hemoglobin Concent 32.3 32-36 g/dl Platelet Count 160 130-400 K/uL Mean Platelet Volume 10.9 7.4-10.4 fL Neutrophils (%) (Auto) 74.7 % Lymphocytes (%) (Auto) 15.9 % Monocytes (%) (Auto) 8.2 % Eosinophils (%) (Auto) 0.6 % Basophils (%) (Auto) 0.4 % Neutrophils # (Auto) 3.56 1.4-6.5 K/uL Lymphocytes # (Auto) 0.76 1.2-3.4 K/uL Monocytes # (Auto) 0.39 0.11-0.59 K/uL Eosinophils # (Auto) 0.03 0-0.5 K/uL Basophils # (Auto) 0.02 0-0.2 K/uL RDW Standard Deviation 57.0 36.4-46.3 fL RDW Coefficient of Variation 19.5 11.5-14.5 % Immature Granulocyte % (Auto) 0.2 % Immature Granulocyte # (Auto) 0.01 0.00-0.02 K/uL Sodium Level 144 136-145 mmol/L Potassium Level 3.9 3.5-5.1 mmol/L Chloride Level 112 98-107 mmol/L Carbon Dioxide Level 24 21-32 mmol/L Anion Gap 8.0 3-11 mmol/L Blood Urea Nitrogen 23 7-18 mg/dl Creatinine 1.20 0.60-1.40 mg/dl Est Creatinine Clear Calc Drug Dose 59.3 ml/min Estimated GFR () 69.1 Estimated GFR (Non- 59.6 BUN/Creatinine Ratio 19.3 10-20 Random Glucose 121 70-99 mg/dl Calcium Level 8.3 8.5-10.1 mg/dl Total Bilirubin 0.4 0.2-1 mg/dl Direct Bilirubin 0.1 0-0.2 mg/dl Aspartate Amino Transf (AST/SGOT) 17 15-37 U/L Alanine Aminotransferase (ALT/SGPT) 25 12-78 U/L Alkaline Phosphatase 101 45-117 U/L Total Protein 6.7 6.4-8.2 gm/dl Albumin 3.8 3.4-5.0 gm/dl Lipase 239 73-393 U/L Thyroid Stimulating Hormone (TSH) 5.060 0.300-4.500 uIu/ml Urine Color YELLOW Urine Appearance CLEAR CLEAR Urine pH 7.5 4.5-7.5 Urine Specific [place] 1.014 1.000-1.030 Urine Protein NEG NEG Urine Glucose (UA) NEG NEG Urine Ketones NEG NEG Urine Occult Blood NEG NEG Urine Nitrite NEG NEG Urine Bilirubin NEG NEG Urine Urobilinogen NEG NEG Urine Leukocyte Esterase NEG NEG Diagnostic Radiology CT abdomen 1. Mildly dilated fluid-filled small bowel loops with normal caliber distal small bowel. The findings are consistent with a partial or early small bowel obstruction 2. Multiple thick walled right mid and lower quadrant small bowel loops, consistent with a nonspecific enteritis. 3. Small amount of interloop and pelvic fluid. 4. 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 Presents with abdominal pain and nausea x 2-3 days. He states that he has had intermittent similar symptoms starting 2 weeks after his September surgery. He denies fevers, vomiting, diarrhea or constipation. A CT abdomen is consistent with a partial or early SBO. The pt was treated with Gleevec x 2 years following resection and recently started Sutent. 1) Partial SBO - I am not convinced that this is acute. Although his pain and nausea have worsened he does describe intermittent symptoms for close 4 months now. The pt states that he was told by the surgeon at [facility] that he was not eligible for additional abdominal surgery although we would assume that this relates to recurrence of the malignancy rather than an unrelated obstruction. He was told by the surgeon at [facility] that he likely has seeding as a result of the initial surgery and is relying on Sutent presently for suppression. We will keep him NPO - provide narcotics and antiemetics as needed and contact the general surgery service. If there is progression, I have explained to him that he may need an NGT. In addition, considering his history, if intervention is required, we might want to transfer him to [facility]. 2) Bipolar disease - we will continue Lamictal crushed to avoid withdrawal seizures which the pt was concerned with. Wellbutrin can likely be held safely for a few days. 3) GERD - Hx UGI bleed - cont PPi IV 4) Priapism - it is unclear why the pt has had issues with Priapism - he was placed on Q Lovenox which has been successfull in treating - we would continue this for prophylaxis regardless Full code - Lovenox prophylaxis Total time for this admit including review of labs, meds, imaging, previous records - discussion with ER attending and pt - 38 min Level of Care Med/Surg Resuscitation Status FULL RESUSCITATION VTE Prophylaxis Given or contraindicated: Enoxaparin (Lovenox)SQ
[2017-02-13] MEDS ORDERED: MoRPHine SULFATE 4 MG/ML 1 ML CARP\\VIAL IV PRN (11:00)
[2017-02-13] MEDS ORDERED: LORAZEPAM 2 MG/ML 1 ML VIAL IV PRN (11:00)
[2017-02-13] MEDS ORDERED: ONDANSETRON INJ 2 MG/ML 2 ML VIAL IV PRN (11:00)
[2017-02-13 11:32] VITALS: O2SAT 98
[2017-02-13 13:09] LABS: PROTHROMBIN TIME (PATIENT) 10.3 SECONDS (9.0-12.0)
[2017-02-13 13:41] VITALS: BP 148/81; PULSE 55; TEMP 36.7; O2SAT 99
[2017-02-13] MEDS: D5NSS + 20MEQ KCL 1,000 ML IV SCH ×2 (13:44→22:36)
[2017-02-13 14:36] VITALS: BMI 22.9
--- NOTE | 2017-02-13 15:50 | CONSULTATION REPORT ---
DATE OF CONSULTATION: 02/13/2017 REASON FOR CONSULT: Small-bowel obstruction. HISTORY OF PRESENT ILLNESS: The patient is a 71-year-old male who began having abdominal pain and bloating early this morning. The pain continued to be more severe than usual and he came to the Emergency Room. He was subsequently admitted by the hospitalist service for small-bowel obstruction. 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 He was treated with Gleevec. He then had recent resection of 2 areas again in September 2016 and is now on Sutent. Both these procedures were done at [facility]. He spent about 9 days recovering in the hospital and since then has had intermittent bloating and discomfort that usually goes away within an hour or so. He had a bowel movement this morning and has not had any recent flatus. He had several slices of pizza at [facility] [employer] [facility] last night followed by desert at home. No one else around him has been ill. He has not had any nausea or vomiting and pain is improved after morphine. PAST MEDICAL HISTORY: GIST tumor resected in December 2014 and September 2016. He had an upper GI bleed in 2003. He has had prostate cancer, primary lung cancer, bladder cancer, bipolar and priapism. PAST SURGICAL HISTORY: GIST resection x2, prostatectomy in 2008, ablation of lung cancer, TURB. He had a cystoscopy in Dr. Villareal's office 2 days ago. SOCIAL HISTORY: Remote history of tobacco use. 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 FAMILY HISTORY: Mother had leukemia, a brother had myeloma. CURRENT HOME MEDICATIONS: Include Wellbutrin, vitamin D, vitamin B, Lovenox, Folvite, Lamictal, Protonix, Metamucil, Zantac, sutent, Tylenol, Ativan, Zofran and p.r.n. EpiPen. Inpatient meds include Protonix 40 mg IV daily, Lovenox 40 mg subQ at bedtime, Pepcid 20 mg IV daily, Lamictal 200 mg b.i.d., D5 NS plus 20 mEq KCl at 100 mL an hour, morphine 3 mg IV q. 3 hours as needed for pain, Ativan 0.5 mg IV q. 8 hours, Zofran 4 mg IV q. 6 hours. ALLERGIES: INCLUDE SULFA, DOXYCYCLINE, BEE STINGS, DILAUDID, NSAIDS. REVIEW OF SYSTEMS: GENERAL: No fevers or chills. CARDIAC: No chest pain, no history of LA. GASTROINTESTINAL: As per HPI. Bowel habits have been regular. OBJECTIVE: GENERAL: Well-developed, well-nourished in no acute distress. VITAL SIGNS: Temperature 36.7, pulse 55, respirations 16, blood pressure 140/81, pulse ox 99% on room air. HEAD, EYES, EARS, NOSE, AND THROAT: Unremarkable. He does not have an NG tube. HEART: No tachycardia. RESPIRATORY: No respiratory distress. ABDOMEN: Distended but soft. He has mild mid right abdominal tenderness and well-healed midline surgical scar. SKIN: Warm and dry. LABORATORY DATA: White count is 4000, hemoglobin 11.7, hematocrit 36.2, platelets 160,000. Sodium 144, potassium 3.9, BUN 23, creatinine 1.2, glucose 121. IMAGING: CT of the abdomen and pelvis shows some mildly dilated small bowel in the lower abdomen. There were multiple thick-walled mid right lower quadrant small bowel loops consistent with a nonspecific enteritis. There is a small amount of interloop fluid and pelvic fluid. IMPRESSION: 1. Small-bowel obstruction. 2. History of gastrointestinal stromal tumor tumor and extensive resection. PLAN: Agree with the plan outlined by the primary service. Will hold on NG tube for now and if he has persistent nausea or vomiting would proceed with NG placement. He was given a liter bolus of saline in the ER, could consider increasing maintenance rate. He was told in the past he was not a candidate for any additional resection for recurrent disease but if his condition declines or does not improve in the next few days, we can reevaluate the situation for possible exploration or transfer back to [facility]. He does have a followup scheduled with medical oncology at [facility] on Friday. We will continue to follow his progress, hopefully this will resolve with conservative measures. OMER
[2017-02-13 20:13] VITALS: BP 143/83; PULSE 57; TEMP 36.4; O2SAT 100
[2017-02-13] MEDS ORDERED: FAMOTIDINE IV INJ 20 MG in DEXTROSE 5% 100ML 100 ML IV SCH (21:00)
[2017-02-13] MEDS ORDERED: ENOXAPARIN 40 MG/0.4 ML SYR SQ SCH (21:00)
[2017-02-13 23:49] VITALS: BP 120/75; PULSE 52; TEMP 36.7; O2SAT 96
[2017-02-14 03:59] VITALS: BP 123/78; PULSE 48; TEMP 36.4; O2SAT 99
[2017-02-14 06:03] LABS: HEMATOCRIT 34.4 % (42-52); MEAN CELL VOLUME 82.1 fL (80-100); MEAN CORPUSCULAR HEMOGLOBIN 25.1 pg (25-34); MEAN CORPUSCULAR HGB CONC 30.5 g/dl (32-36); PLATELET COUNT 136 K/uL (130-400); RED BLOOD COUNT 4.19 M/uL (4.7-6.1); WHITE BLOOD COUNT 3.38 K/uL (4.8-10.8)
[2017-02-14 06:14] VITALS: Ht 182.9 cm; Wt 75.7 kg
[2017-02-14] MEDS: D5NSS + 20MEQ KCL 1,000 ML IV SCH (06:18)
[2017-02-14 06:40] LABS: BUN/CREATININE RATIO 14.1 (10-20); CALCIUM 7.8 mg/dl (8.5-10.1); CREATININE 1.1 mg/dl (0.60-1.40); MAGNESIUM 2.2 mg/dl (1.8-2.4); POTASSIUM 4.3 mmol/L (3.5-5.1)
[2017-02-14 07:46] VITALS: BP 146/83; PULSE 46; TEMP 36.6; O2SAT 98
--- NOTE | 2017-02-14 08:14 | Progress Note ---
Subjective Date of Service: February 14, 2017. Problem List Medical Problems: (1) Bronchitis Status: Acute (2) Headache Status: Acute (3) Lower abdominal pain Status: Acute (4) Partial small bowel obstruction Status: Acute Objective Vital Signs Date Time Temp Pulse Resp B/P Pulse Ox O2 Delivery O2 Flow Rate FiO2 02/14/17 07:46 36.6 46 18 146/83 98 Room Air 02/14/17 03:59 36.4 48 18 123/78 99 Room Air 02/14/17 00:00 Room Air 02/13/17 23:49 36.7 52 18 120/75 96 Room Air 02/13/17 20:13 36.4 57 18 143/83 100 Room Air 02/13/17 16:00 Room Air 02/13/17 14:36 Room Air 02/13/17 13:41 36.7 55 16 148/81 99 Room Air 02/13/17 12:18 16 02/13/17 11:32 61 16 152/82 98 Room Air 02/13/17 11:16 16 02/13/17 09:14 62 16 151/84 100 Room Air Laboratory Results Last 24 Hours Test 02/13/17 09:45 02/14/17 05:39 Urine Color YELLOW Urine Appearance CLEAR Urine pH 7.5 Urine Specific [place] 1.014 Urine Protein NEG Urine Glucose (UA) NEG Urine Ketones NEG Urine Occult Blood NEG Urine Nitrite NEG Urine Bilirubin NEG Urine Urobilinogen NEG Urine Leukocyte Esterase NEG White Blood Count 3.38 K/uL Red Blood Count 4.19 M/uL Hemoglobin 10.5 g/dL Hematocrit 34.4 % Mean Corpuscular Volume 82.1 fL Mean Corpuscular Hemoglobin 25.1 pg Mean Corpuscular Hemoglobin Concent 30.5 g/dl RDW Standard Deviation 60.3 fL RDW Coefficient of Variation 20.2 % Platelet Count 136 K/uL Mean Platelet Volume 10.0 fL Sodium Level 147 mmol/L Potassium Level 4.3 mmol/L Chloride Level 115 mmol/L Carbon Dioxide Level 29 mmol/L Anion Gap 3.0 mmol/L Blood Urea Nitrogen 16 mg/dl Creatinine 1.10 mg/dl Est Creatinine Clear Calc Drug Dose 64.0 ml/min Estimated GFR () 76.8 Estimated GFR (Non- 66.2 BUN/Creatinine Ratio 14.1 Random Glucose 107 mg/dl Calcium Level 7.8 mg/dl Magnesium Level 2.2 mg/dl Assessment and Plan 71 y/o M Hx Intestinal stromal CA (GIST) and previous small bowel resection , 10/15. CT abdomen is consistent with a partial or early SBO. Partial SBO -not clear if acute or chronic, previous concern for metastatic disease, relying on Sutent presently for suppression. NPO - pain and nausea control, consult general surgery service.. Bipolar disease - Lamictal crushed to avoid withdrawal seizures which the pt was concerned with. Wellbutrin can likely be held GERD - Hx UGI bleed - cont PPi IV Priapism - it is unclear why the pt has had issues with Priapism - he was placed on QHS Lovenox which has been successfull in treating - we would continue this for prophylaxis regardless Full code - Lovenox prophylaxis
--- NOTE | 2017-02-14 08:45 | Surgery Progress Note ---
Surgery Progress Note Date of Service February 14, 2017. Subjective + flatus (scant), + pain controlled (some waves of pain), No nausea Objective Vital Signs: Date Time Temp Pulse Resp B/P Pulse Ox O2 Delivery O2 Flow Rate FiO2 02/14/17 07:46 36.6 46 18 146/83 98 Room Air 02/14/17 03:59 36.4 48 18 123/78 99 Room Air 02/14/17 00:00 Room Air 02/13/17 23:49 36.7 52 18 120/75 96 Room Air 02/13/17 20:13 36.4 57 18 143/83 100 Room Air 02/13/17 16:00 Room Air 02/13/17 14:36 Room Air 02/13/17 13:41 36.7 55 16 148/81 99 Room Air 02/13/17 12:18 16 02/13/17 11:32 61 16 152/82 98 Room Air 02/13/17 11:16 16 02/13/17 09:14 62 16 151/84 100 Room Air Abdomen: soft, + distended, + tenderness (right mid abdomen) Laboratory Results: Results Past 24 Hours Test 02/13/17 09:45 02/14/17 05:39 Range/Units Urine Color YELLOW Urine Appearance CLEAR CLEAR Urine pH 7.5 4.5-7.5 Urine Specific [place] 1.014 1.000-1.030 Urine Protein NEG NEG Urine Glucose (UA) NEG NEG Urine Ketones NEG NEG Urine Occult Blood NEG NEG Urine Nitrite NEG NEG Urine Bilirubin NEG NEG Urine Urobilinogen NEG NEG Urine Leukocyte Esterase NEG NEG White Blood Count 3.38 4.8-10.8 K/uL Red Blood Count 4.19 4.7-6.1 M/uL Hemoglobin 10.5 14.0-18.0 g/dL Hematocrit 34.4 42-52 % Mean Corpuscular Volume 82.1 80-100 fL Mean Corpuscular Hemoglobin 25.1 25-34 pg Mean Corpuscular Hemoglobin Concent 30.5 32-36 g/dl RDW Standard Deviation 60.3 36.4-46.3 fL RDW Coefficient of Variation 20.2 11.5-14.5 % Platelet Count 136 130-400 K/uL Mean Platelet Volume 10.0 7.4-10.4 fL Sodium Level 147 136-145 mmol/L Potassium Level 4.3 3.5-5.1 mmol/L Chloride Level 115 98-107 mmol/L Carbon Dioxide Level 29 21-32 mmol/L Anion Gap 3.0 3-11 mmol/L Blood Urea Nitrogen 16 7-18 mg/dl Creatinine 1.10 0.60-1.40 mg/dl Est Creatinine Clear Calc Drug Dose 64.0 ml/min Estimated GFR () 76.8 Estimated GFR (Non- 66.2 BUN/Creatinine Ratio 14.1 10-20 Random Glucose 107 70-99 mg/dl Calcium Level 7.8 8.5-10.1 mg/dl Magnesium Level 2.2 1.8-2.4 mg/dl Assessment & Plan PSBO, h/o GIST starting to pass some flatus will check SBFT consider clears after SBFT seen with Dr. Garner
--- NOTE | 2017-02-14 09:47 | DIAGNOSTIC IMAGING REPORT ---
MARILYN CLINICAL HISTORY: Abdominal pain COMPARISON STUDY: 09/28/2016 FINDINGS: The examination was taken as a engineering illustrator radiograph for an upper GI small bowel examination. There is moderately extensive contrast throughout the colon. This would preclude optimal upper GI small bowel study. This study should be rescheduled following clearing of the barium. IMPRESSION: 1. There is contrast within nondilated colon. 2. The upper GI small bowel study scheduled, was not performed as the barium within the colon would obscure the relevant anatomy. Electronically signed by: Job Redding M.D. 02/14/2017 9:46 AM Dictated Date/Time: 02/14/2017 9:44 AM
--- NOTE | 2017-02-14 10:01 | Progress Note ---
Progress Note Date of Service February 14, 2017. Progress Note Not able to obtain SBFT due to retained CT contrast can be rescheduled as an outpatient will start on clears
[2017-02-14] MEDS ORDERED: PANTOprazole INJ 40 MG in SYRINGE 0 ML IV SCH (11:00)
[2017-02-14] MEDS ORDERED: TRAM-10 PO (11:42)
[2017-02-14] MEDS ORDERED: ACET-1256 PO (11:42)
[2017-02-14] MEDS ORDERED: RXC5 PO (11:42)
--- NOTE | 2017-02-14 11:43 | Discharge Instructions ---
Discharge Instructions Date of Service February 14, 2017. Admission Reason for Admission: Abdominal Pain Discharge Discharge Diagnosis / Problem: partial small bowel obstruction Discharge Goals Goal(s): Diagnostic testing Activity Recommendations Activity Limitations: resume your previous activity . Current Hospital Diet Patient's current hospital diet: Clear Liquid Diet Discharge Diet Recommended Diet: Low Fiber Diet Pending Studies Studies pending at discharge: no Medical Emergencies . Who to Call and When: Medical Emergencies: If at any time you feel your situation is an emergency, please call 911 immediately. . Non-Emergent Contact Non-Emergency issues call your: Surgeon (consider [facility] follow up) Call Non-Emergent contact if: temperature is above 101, your pain is unusual for you . . "Provider Documentation" section prepared by Gustavo Carroll. . VTE Core Measure Inpt VTE Proph given/why not?: Enoxaparin (Lovenox)SQ
[2017-02-14 11:46] VITALS: BP 146/83; PULSE 46; TEMP 36.6; O2SAT 98
--- NOTE | 2017-02-14 14:45 | Discharge Summary ---
Discharge Summary Date of Service February 14, 2017. Discharge Summary Admission Date: February 13, 2017 at 11:03 Discharge Date: February 14, 2017 Discharge Disposition: Home Principal Diagnosis: partial bowel obstruction Medication Reconciliation New Medications: Oxycodone HCl (Oxycodone HCl) 5 Mg Tab 5-10 MG PO Q6H PRN for Pain, #30 Tramadol (Ultram) 50 Mg Tab 50 MG PO Q8H PRN for Pain, #60 TAB Changed Medications: Acetaminophen (Tylenol) 500 Mg Tab 1000 MG PO Q6 PRN for Pain or Fever, #120 TAB (Changed from: 500 MG; Q8) Continued Medications: Bupropion Hcl (Wellbutrin Xl) 150 Mg Tab 150 MG PO QAM Cholecalciferol (Vitamin D3) 1,000 Unit Tab 1000 UNITS PO DAILY for 90 Days, TAB 3 Refills Cyanocobalamin (Vitamin B-12) 500 Mcg Tab 500 MCG PO DAILY, TAB Enoxaparin (Lovenox) 40 Mg/0.4 Ml Inj 40 MG SQ HS, SYR Epinephrine (Epipen) 0.3 Mg/0.3 Ml Inj 0.3 MG IM UD PRN for ALLERGIC REACTION Folic Acid (Folvite) 400 Mcg Tab 400 MCG PO DAILY, TAB Lamotrigine (Lamictal) 200 Mg Tab 200 MG PO BID, TAB Lorazepam (Ativan) 0.5 Mg Tab 0.5 MG PO Q6H PRN for Anxiety/Agitation, TAB Ondansetron Hcl (Zofran) 8 Mg Tab 8 MG PO Q6H PRN for Nausea, TAB Pantoprazole (Protonix) 40 Mg Tab 40 MG PO QAM, #30 TAB Psyllium (Metamucil Fiber) 51.7 % Rickie 1 DOSE PO HS Ranitidine Hcl (Zantac) 300 Mg Tab 300 MG PO HS Sunitinib Malate (Sutent) 37.5 Mg Cap 37.5 MG PO QPM, #28 Discharge Exam Review of Systems: Constitutional: No chills, No fever Respiratory: No cough, No shortness of breath, No sputum, No wheezing Cardiovascular: No chest pain, No edema, No orthopnea Abdomen: No diarrhea, No nausea, No pain, No vomiting Musculoskeletal: No joint pain, No muscle pain Genitourinary - Male: No dysuria, No hematuria Psychiatric: No anhedonism, No depression symptoms Physical Exam: General Appearance: WD/WN, + mild distress Eyes: PERRL, EOMI Neck: supple, no JVD Respiratory/Chest: chest non-tender, lungs clear, normal breath sounds Cardiovascular: regular rate, rhythm, no murmur Abdomen / GI: normal bowel sounds, non tender, soft Neurologic/Psychiatric: alert, oriented x 3 Hospital Course 71 y/o M Hx Intestinal stromal CA (GIST) and previous small bowel resection , 10/15. CT abdomen is consistent with a partial or early SBO. Partial SBO -acute on chronic, previous concern for metastatic disease, relying on Sutent presently for suppression. tolerating clear diet, will have appointment on 02/18/17 at [facility] will give CD of CT to take with pt Bipolar disease - Lamictal Wellbutrin Priapism - it is unclear why the pt has had issues with Priapism - he was placed on QHS Lovenox which has been successful in treating - we would continue this for prophylaxis regardless Upon my visit with pt he asked to be discharged said he would prefer to recuperate at home and follow up with [facility] on friday, was tolerating tea, and I did give RX for ultram and oxycodone, will also augment pain medicine with tylenol and i recommended low residual diet and possible liquid nutation Total Time Spent: Greater than 30 minutes This includes examination of the patient, discharge planning, medication reconciliation, and communication with other providers. Discharge Instructions Please refer to the electronic Patient Visit Report (Discharge Instructions) for additional information.
== END 2017-02-14 13:00 | disposition home or self-care (01) | DRG 389 ==
LOC: ENRESERVDT → ENRESERVTM → CANRESERV → EDBD 07:02 → C.EDB 07:05 → C.4E 11:03
PROVIDERS: ADMIT Internal Medicine; ATTEND Internal Medicine
DX: K56.60 Unspecified intestinal obstruction (principal); N48.30 Priapism, unspecified; K21.9 Gastro-esophageal reflux disease without esophagitis; F31.9 Bipolar disorder, unspecified; Z79.01 Long term (current) use of anticoagulants; Z79.899 Other long term (current) drug therapy; Z98.890 Other specified postprocedural states

== ENCOUNTER 2017-04-28 23:51 | Inpatient (IN) | payer BC, OTHER ==
[~2017-04-28] VITALS: Ht 182.9 cm; Wt 72.6 kg
[~2017-04-28 23:51] MED LIST changes: +ENOX40IN SQ; -OXYC1TAB3 PO; -POLY335019 PO; -PSYL55.43 PO; +PSYL58.636 PO; +RANI300T PO; +RXC5 PO; +SUNI37.5 PO; +TRAM-10 PO
[2017-04-29] MEDS ORDERED: MoRPHine SULFATE 4 MG/ML 1 ML CARP\\VIAL IV STA (00:15)
[2017-04-29] MEDS ORDERED: ONDANSETRON INJ 2 MG/ML 2 ML VIAL IV STA (00:15)
[2017-04-29] MEDS ORDERED: TYLOTC500 PO (00:24)
[2017-04-29] MEDS ORDERED: TRAM-10 PO (00:24)
[2017-04-29] MEDS ORDERED: OXYC1TAB3 PO (00:26)
[2017-04-29] MEDS ORDERED: OPTIRAY 320 IV PRN (00:30)
[2017-04-29 01:01] LABS: BASO % 0.3 %; BASO ABS # 0.01 K/uL (0-0.2); COMPLETE YES; EOS % 0.7 %; HEMATOCRIT 37.7 % (42-52); LYMPH % 40.1 %; LYMPH ABS # 1.19 K/uL (1.2-3.4); MEAN CELL VOLUME 91.3 fL (80-100); MEAN CORPUSCULAR HGB CONC 32.9 g/dl (32-36); MEAN PLATELET VOLUME 11.2 fL (7.4-10.4); MONO % 15.2 %; NEUT % 43.7 %; PLATELET COUNT 138 K/uL (130-400); RED BLOOD COUNT 4.13 M/uL (4.7-6.1); WHITE BLOOD COUNT 2.97 K/uL (4.8-10.8)
--- NOTE | 2017-04-29 01:24 | EMERGENCY ROOM VISIT NOTE ---
History Report prepared by Brando: Prema Bautista Under the Supervision of: Dr. He Thomas D.O. First contact with patient: 00:07 Chief Complaint: ABDOMINAL PAIN Stated Complaint: SEVERE ABDOMINAL PAIN-NOT 1ST TIME History of Present Illness The patient is a 71 year old male who presents to the Emergency Room with complaints of an episode of abdominal pain starting yesterday night. The patient reports that the pain woke him from his sleep. He reports he was away for a retreat and ate a dish of soup that had corn in it two nights ago. He states that he was still hungry so later that evening he ate power bars and drank muscle milk. He believes this episode is from an abrupt change in his diet. He states that he took Tramadol sic hours ago with no relief. He reports he took Oxycodone four hours ago with some relief and took it again two hours ago because the pain was coming back. He notes that since the pain has started he has had 2 bowel movements. The patient complains of loss of appetite, belching, and fatigue. The patient denies vomiting, hematochezia, and melena. He notes that he has had a history of a small intestine adhesion, small intestine constriction, an upper GI, and 2 gastrointestinal tumors. He notes that he has been chewing his food carefully, eating smaller portions, and cut out fiber and nuts. The patient currently rates his pain as a 7/10 in severity. Source of History: patient Onset: yesterady night Position: abdomen Symptom Intensity: 7/10 Timing: other (episode) Modifying Factors (Relieving): narcotics (Oxycodone) Associated Symptoms: + fatigue, No vomiting, No melena, No hematochezia Note: The patient complains of a loss of appetite and belching. Review of Systems See HPI for pertinent positives and negatives. A total of ten systems were reviewed and were otherwise negative. Past Medical & Surgical Medical Problems: (1) GERD (gastroesophageal reflux disease) (2) GI bleed (3) H/O endoscopy (4) History of cancer (5) SBO (small bowel obstruction) Family History Cancer Social History Smoking Status: Never Smoker Alcohol Use: occasionally Drug Use: none Marital Status: Housing Status: lives with family Occupation Status: retired Current/Historical Medications Scheduled Bupropion Hcl (Wellbutrin Xl), 150 MG PO QAM Cholecalciferol (Vitamin D3), 1,000 UNITS PO DAILY Cyanocobalamin (Vitamin B-12), 500 MCG PO DAILY Enoxaparin (Lovenox), 40 MG SQ HS Folic Acid (Folvite), 400 MCG PO DAILY Lamotrigine (Lamictal), 200 MG PO BID Pantoprazole (Protonix), 40 MG PO QAM Ranitidine Hcl (Zantac), 300 MG PO HS Sunitinib Malate (Sutent), 37.5 MG PO QPM Scheduled PRN Acetaminophen (Tylenol), 1,000 MG PO DIRECTED PRN for Pain or Fever Epinephrine (Epipen), 0.3 MG IM UD PRN for ALLERGIC REACTION Lorazepam (Ativan), 0.5 MG PO Q6H PRN for Anxiety/Agitation Ondansetron Hcl (Zofran), 8 MG PO Q6H PRN for Nausea Oxycodone Ir (Roxicodone Ir), 5-10 MG PO Q6H PRN for Pain Tramadol (Ultram), 50 MG PO Q8H PRN for Pain Allergies Coded Allergies: Sulfa Antibiotics (Verified Allergy, Severe, ANAPHYLAXIS, BAD RASH, 04/29/17 ) Wasp (Verified Allergy, Severe, HIVES-EPIPEN NEEDED, 04/29/17) Doxycycline (Verified Allergy, Unknown, ITCHYNESS, 04/29/17) Yellow Jacket (Verified Allergy, Unknown, HIVES-SEVERE IN PAST-HAS EPIPEN , 04/29/17) Hydromorphone (Verified Adverse Reaction, Intermediate, Dizzy, 04/29/17) NSAIDs (Verified Adverse Reaction, Unknown, gi bleed, 04/29/17) Physical Exam Vital Signs Date Time Temp Pulse Resp B/P (MAP) Pulse Ox O2 Delivery O2 Flow Rate FiO2 04/29/17 02:18 53 18 150/79 97 Room Air 04/29/17 00:55 60 18 134/85 94 Room Air 04/29/17 00:54 64 04/28/17 23:55 36.6 58 16 124/74 97 Room Air Physical Exam GENERAL: Awake, alert, well-appearing, in no distress HENT: Normocephalic, atraumatic. Oropharynx unremarkable. EYES: Normal conjunctiva. Sclera non-icteric. NECK: Supple. No nuchal rigidity. FROM. No JVD. RESPIRATORY: Clear to auscultation. CARDIAC: Regular rate, normal rhythm. Extremities warm and well perfused. Pulses equal. ABDOMEN: Soft, non-distended. Tenderness diffusely, but most specifically in the midline. Bowel sounds not present. No rebound, rigidity, or guarding. No masses. RECTAL: Deferred. MUSCULOSKELETAL: Chest examination reveals no tenderness. The back is symmetrical on inspection without obvious abnormality. There is no CVA tenderness to palpation. No joint edema. LOWER EXTREMITIES: Calves are equal size bilaterally and non-tender. No edema. No discoloration. NEURO: Normal sensorium. No sensory or motor deficits noted. SKIN: No rash or jaundice noted. Medical Decision & Procedures ER Provider Diagnostic Interpretation: CT ABDOMEN & PELVIS: Findings: Anastomotic suture lines in the left colon as well as within small bowel in the right mid abdomen and small bowel in the right lower quadrant. Dilated loops of small bowel in the central abdomen with probable transition point at the anastomotic suture line in the right mid abdomen versus left para midline lower quadrant. Decompressed distal small bowel loops. Findings are compatible with small bowel obstruction. Trace free fluid in the pelvis. No free air identified. Gallbladder is mildly distended without CT evidence of acute cholecystitis. Normal appendix. Bilateral L5 pars defects with grade 1 anterolisthesis of L5 on S1. Degenerative changes of the spine. Radiologist: Avery Jean-Baptiste M.D. Study ready at 02:06 and initial results transmitted at 02:36. Laboratory Results 04/29/17 00:49 Red Blood Count 4.13, Mean Corpuscular Volume 91.3, Mean Corpuscular Hemoglobin 30.0, Mean Corpuscular Hemoglobin Concent 32.9, Mean Platelet Volume 11.2, Neutrophils (%) (Auto) 43.7, Lymphocytes (%) (Auto) 40.1, Monocytes (%) (Auto) 15.2, Eosinophils (%) (Auto) 0.7, Basophils (%) (Auto) 0.3, Neutrophils # (Auto ) 1.30, Lymphocytes # (Auto) 1.19, Monocytes # (Auto) 0.45, Eosinophils # (Auto ) 0.02, Basophils # (Auto) 0.01 04/29/17 00:49 04/29/17 01:43 Test 04/29/17 00:49 04/29/17 01:43 04/29/17 02:11 White Blood Count 2.97 K/uL (4.8-10.8) Red Blood Count 4.13 M/uL (4.7-6.1) Hemoglobin 12.4 g/dL (14.0-18.0) Hematocrit 37.7 % (42-52) Mean Corpuscular Volume 91.3 fL (80-100) Mean Corpuscular Hemoglobin 30.0 pg (25-34) Mean Corpuscular Hemoglobin Concent 32.9 g/dl (32-36) Platelet Count 138 K/uL (130-400) Mean Platelet Volume 11.2 fL (7.4-10.4) Neutrophils (%) (Auto) 43.7 % Lymphocytes (%) (Auto) 40.1 % Monocytes (%) (Auto) 15.2 % Eosinophils (%) (Auto) 0.7 % Basophils (%) (Auto) 0.3 % Neutrophils # (Auto) 1.30 K/uL (1.4-6.5) Lymphocytes # (Auto) 1.19 K/uL (1.2-3.4) Monocytes # (Auto) 0.45 K/uL (0.11-0.59) Eosinophils # (Auto) 0.02 K/uL (0-0.5) Basophils # (Auto) 0.01 K/uL (0-0.2) RDW Standard Deviation 55.7 fL (36.4-46.3) RDW Coefficient of Variation 17.0 % (11.5-14.5) Immature Granulocyte % (Auto) 0.0 % Immature Granulocyte # (Auto) 0.00 K/uL (0.00-0.02) Anion Gap 8.0 mmol/L (3-11) Est Creatinine Clear Calc Drug Dose 61.4 ml/min Estimated GFR () 76.8 Estimated GFR (Non- 66.2 BUN/Creatinine Ratio 22.1 (10-20) Calcium Level 8.7 mg/dl (8.5-10.1) Total Bilirubin 0.5 mg/dl (0.2-1) Alanine Aminotransferase (ALT/SGPT) 28 U/L (12-78) Alkaline Phosphatase 64 U/L (45-117) Total Protein 6.6 gm/dl (6.4-8.2) Albumin 3.6 gm/dl (3.4-5.0) Lipase 112 U/L (73-393) Chemistry Specimen Hemolysis Direct Bilirubin 0.1 mg/dl (0-0.2) Aspartate Amino Transf (AST/SGOT) 16 U/L (15-37) Urine Color DK YELLOW Urine Appearance CLEAR (CLEAR) Urine pH 5.5 (4.5-7.5) Urine Specific [place] 1.034 (1.000-1.030) Urine Protein NEG (NEG) Urine Glucose (UA) NEG (NEG) Urine Ketones TRACE (NEG) Urine Occult Blood NEG (NEG) Urine Nitrite NEG (NEG) Urine Bilirubin NEG (NEG) Urine Urobilinogen NEG (NEG) Urine Leukocyte Esterase NEG (NEG) Laboratory results reviewed by me Medications Administered Medications (Trade) Dose Ordered Sig/Sapna Route Start Time Stop Time Status Last Admin Dose Admin Ondansetron HCl (Zofran Inj) 4 mg NOW STAT IV 04/29/17 00:15 04/29/17 00:17 DC 04/29/17 00:51 4 MG Morphine Sulfate (MoRPHine SULFATE INJ) 4 mg NOW STAT IV 04/29/17 00:15 04/29/17 00:17 DC 04/29/17 00:52 4 MG ED Course 0008: The patient was evaluated in room B12B. A complete history and physical exam was performed. 0015: Ordered Morphine Sulfate 4 mg IV, Zofran Inj 4 mg IV. 0300: Discussed the patient's case with Dr. Hamilton from General Surgery. 0305: Discussed the patient's case Dr. Bobby. The patient will be evaluated for further treatment and disposition. Medical Decision Differential diagnosis: Etiologies such as appendicitis, diverticulitis, PUD, biliary pathology, UTI, pancreatitis, obstruction, mesenteric ischemia, aortic pathology, infections, inflammatory bowel disease, renal colic, as well as others were entertained. Medication Reconcilliation Current Medication List: was personally reviewed by me Blood Pressure Screening Patient's blood pressure: Normal blood pressure Consults Time Called: 025 Consulting Physician: Dr. Hamilton -General Surgery Returned Call: 0300 Discussed the patient's case with Dr. Hamilton from General Surgery. Additional Consults: Time Called: 025 Consulted Physician: Dr. Bobby- [facility] Returned Call: 030 Additional Comments: Discussed the patient's case Dr. Kedem. The patient will be evaluated for further treatment and disposition. Impression Primary Impression: Small bowel obstruction Scribe Attestation The scribe's documentation has been prepared under my direction and personally reviewed by me in its entirety. I confirm that the note above accurately reflects all work, treatment, procedures, and medical decision making performed by me. Departure Information Dispostion Being Evaluated By Hospitalist Referrals Balaji Mejia M.D. (PCP) Patient Instructions [facility]
[2017-04-29 01:30] LABS: ALKALINE PHOSPHATASE 64 U/L (45-117); ALT/SGPT 28 U/L (12-78); BLOOD UREA NITROGEN 24 mg/dl (7-18); BUN/CREATININE RATIO 22.1 (10-20); CALCIUM 8.7 mg/dl (8.5-10.1); CARBON DIOXIDE 24 mmol/L (21-32); CHLORIDE 110 mmol/L (98-107); GLUCOSE 114 mg/dl (70-99); SODIUM 142 mmol/L (136-145)
[2017-04-29 02:03] LABS: POTASSIUM 3.9 mmol/L (3.5-5.1)
[2017-04-29 02:31] LABS: URINE APPEARANCE CLEAR (CLEAR); URINE BILIRUBIN NEG (NEG); URINE COLOR DK YELLOW; URINE NITRITE NEG (NEG); URINE PH 5.5 (4.5-7.5); URINE SPECIFIC GRAVITY 1.034 (1.000-1.030); UROBILINOGEN NEG (NEG); ZZUR CULT IF INDIC CLEAN CATCH NO
[2017-04-29 02:35] LABS: MANUAL MICROSCOPIC REQUIRED? NO; REVIEW REQ? NO
--- NOTE | 2017-04-29 03:24 | History and Physical ---
History & Physical Date & Time of Service: Apr 29, 2017 at 03:24 Chief Complaint: Severe Abdominal Pain-Not 1ST Time Primary Care Physician: Balaji Mejia M.D. 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 He is currently on the medication Sunitinib for suppression of this tumor. He previously has had a SBO in January of this year, which was treated conservatively. His reports he has had increased bowel sounds the last few days, and he had a recent change in diet (including muscle milk / was at a retreat with different foods). He had a BM this morning, which seemed normal, but then developed severe pain throughout the day. She also thinks he seems very pale compared to prior, but that is meant to be a side effect of the Sunitinib medication. Past Medical/Surgical History PMHx GIST stromal tumor - followed by [facility] and Dr Moy here Hx of partial SBO due to stricture Priapism PSHx Bowel resection x 2 Family History Cancer Social History Smoking Status: Never Smoker Drug Use: none Marital Status: Housing status: lives with family Occupational Status: retired Multi-Drug Resistant Organisms History of MDRO: No Allergies Coded Allergies: Sulfa Antibiotics (Verified Allergy, Severe, ANAPHYLAXIS, BAD RASH, 04/29/17 ) Wasp (Verified Allergy, Severe, HIVES-EPIPEN NEEDED, 04/29/17) Doxycycline (Verified Allergy, Unknown, ITCHYNESS, 04/29/17) Yellow Jacket (Verified Allergy, Unknown, HIVES-SEVERE IN PAST-HAS EPIPEN , 04/29/17) Hydromorphone (Verified Adverse Reaction, Intermediate, Dizzy, 04/29/17) NSAIDs (Verified Adverse Reaction, Unknown, gi bleed, 04/29/17) Home Medications Scheduled Bupropion Hcl (Wellbutrin Xl), 150 MG PO QAM Cholecalciferol (Vitamin D3), 1,000 UNITS PO DAILY Cyanocobalamin (Vitamin B-12), 500 MCG PO DAILY Enoxaparin (Lovenox), 40 MG SQ HS Folic Acid (Folvite), 400 MCG PO DAILY Lamotrigine (Lamictal), 200 MG PO BID Pantoprazole (Protonix), 40 MG PO QAM Ranitidine Hcl (Zantac), 300 MG PO HS Sunitinib Malate (Sutent), 37.5 MG PO QPM Scheduled PRN Acetaminophen (Tylenol), 1,000 MG PO DIRECTED PRN for Pain or Fever Epinephrine (Epipen), 0.3 MG IM UD PRN for ALLERGIC REACTION Lorazepam (Ativan), 0.5 MG PO Q6H PRN for Anxiety/Agitation Ondansetron Hcl (Zofran), 8 MG PO Q6H PRN for Nausea Oxycodone Ir (Roxicodone Ir), 5-10 MG PO Q6H PRN for Pain Tramadol (Ultram), 50 MG PO Q8H PRN for Pain Review of Systems See HPI for pertinent positives & negatives. A total of 10 systems reviewed and were otherwise negative. Physical Exam Vital Signs Date Time Temp Pulse Resp B/P (MAP) Pulse Ox O2 Delivery O2 Flow Rate FiO2 04/29/17 02:18 53 18 150/79 97 Room Air 04/29/17 00:55 60 18 134/85 94 Room Air 04/29/17 00:54 64 04/28/17 23:55 36.6 58 16 124/74 97 Room Air General Appearance: WD/WN, + mild distress, + thin Head: normocephalic, atraumatic Eyes: normal inspection, PERRL ENT: hearing grossly normal Neck: supple, no JVD Respiratory/Chest: lungs clear, no respiratory distress Cardiovascular: regular rate, rhythm, no murmur, normal peripheral pulses Abdomen/GI: + tenderness, + distended Back: no CVA tenderness, no muscle spasm Extremities/Musculoskelatal: no calf tenderness, no pedal edema Neurologic/Psych: alert, normal mood/affect, oriented x 3 Skin: warm/dry, no rash Diagnostics Laboratory Results Results Past 24 Hours Test 04/29/17 00:49 04/29/17 01:43 04/29/17 02:11 Range/Units White Blood Count 2.97 4.8-10.8 K/uL Red Blood Count 4.13 4.7-6.1 M/uL Hemoglobin 12.4 14.0-18.0 g/dL Hematocrit 37.7 42-52 % Mean Corpuscular Volume 91.3 80-100 fL Mean Corpuscular Hemoglobin 30.0 25-34 pg Mean Corpuscular Hemoglobin Concent 32.9 32-36 g/dl Platelet Count 138 130-400 K/uL Mean Platelet Volume 11.2 7.4-10.4 fL Neutrophils (%) (Auto) 43.7 % Lymphocytes (%) (Auto) 40.1 % Monocytes (%) (Auto) 15.2 % Eosinophils (%) (Auto) 0.7 % Basophils (%) (Auto) 0.3 % Neutrophils # (Auto) 1.30 1.4-6.5 K/uL Lymphocytes # (Auto) 1.19 1.2-3.4 K/uL Monocytes # (Auto) 0.45 0.11-0.59 K/uL Eosinophils # (Auto) 0.02 0-0.5 K/uL Basophils # (Auto) 0.01 0-0.2 K/uL RDW Standard Deviation 55.7 36.4-46.3 fL RDW Coefficient of Variation 17.0 11.5-14.5 % Immature Granulocyte % (Auto) 0.0 % Immature Granulocyte # (Auto) 0.00 0.00-0.02 K/uL Sodium Level 142 136-145 mmol/L Potassium Level 3.9 3.5-5.1 mmol/L Chloride Level 110 98-107 mmol/L Carbon Dioxide Level 24 21-32 mmol/L Anion Gap 8.0 3-11 mmol/L Blood Urea Nitrogen 24 7-18 mg/dl Creatinine 1.10 0.60-1.40 mg/dl Est Creatinine Clear Calc Drug Dose 61.4 ml/min Estimated GFR () 76.8 Estimated GFR (Non- 66.2 BUN/Creatinine Ratio 22.1 10-20 Random Glucose 114 70-99 mg/dl Calcium Level 8.7 8.5-10.1 mg/dl Total Bilirubin 0.5 0.2-1 mg/dl Direct Bilirubin 0.1 0-0.2 mg/dl Aspartate Amino Transf (AST/SGOT) 16 15-37 U/L Alanine Aminotransferase (ALT/SGPT) 28 12-78 U/L Alkaline Phosphatase 64 45-117 U/L Total Protein 6.6 6.4-8.2 gm/dl Albumin 3.6 3.4-5.0 gm/dl Lipase 112 73-393 U/L Chemistry Specimen Hemolysis Urine Color DK YELLOW Urine Appearance CLEAR CLEAR Urine pH 5.5 4.5-7.5 Urine Specific [place] 1.034 1.000-1.030 Urine Protein NEG NEG Urine Glucose (UA) NEG NEG Urine Ketones TRACE NEG Urine Occult Blood NEG NEG Urine Nitrite NEG NEG Urine Bilirubin NEG NEG Urine Urobilinogen NEG NEG Urine Leukocyte Esterase NEG NEG Diagnostic Radiology CT ABDOMEN & PELVIS: Findings: Anastomotic suture lines in the left colon as well as within small bowel in the right mid abdomen and small bowel in the right lower quadrant. Dilated loops of small bowel in the central abdomen with probable transition point at the anastomotic suture line in the right mid abdomen versus left para midline lower quadrant. Decompressed distal small bowel loops. Findings are compatible with small bowel obstruction. Trace free fluid in the pelvis. No free air identified. Gallbladder is mildly distended without CT evidence of acute cholecystitis. Normal appendix. Bilateral L5 pars defects with grade 1 anterolisthesis of L5 on S1. Degenerative changes of the spine. Impression Assessment and Plan 71 yo M with known GIST tumor, s/p bowel resection w/a stricture dx 2 mo ago, who presents with recurrent partial SBO. Partial SBO - Consult General Surgery - NG tube placed - NPO except meds - IV fluids rehydration - Pepcid IV - Zofran PRN Hx GIST tumor - Continue home chemo regime, pt;s can bring in med if needed Anxiety - Continue Wellbutrin PO 150mg - Ativan switched to IV PRN DISPO: Med/Surg VTE: Lovenox CODE STATUS: Full (should discuss w/patient / during admission) Resident Physician Supervision Note: I was present with Dr. Handley during the history and exam. I discussed the case with the resident and agree with the findings and plan as documented in the note. Any exceptions or clarifications are listed here: 71 y/o M GIST tumor - SBO and resection at [place] 10/15 - presents with N/V abdominal pain - SBO on imaging OE AAO x 3 S1,2 R CTAB +dist - diffuse tenderness No CCE P Pt evaluated by surgery and NGT placed - He may need transfer to [place] if obstruction does not resolve Pain control, antiemetics, IVF provided Discussed with pt and ER attending Documented By: Jake Bobby Level of Care Med/Surg VTE Prophylaxis VTE Risk Assessment Done? Y/N: Yes Risk Level: Moderate Resident Tracking Resident Involvement: Resident Care Provided Care Provided: Adult Hospital Medicine
[2017-04-29] MEDS ORDERED: ONDANSETRON INJ 2 MG/ML 2 ML VIAL IV PRN (03:30)
[2017-04-29] MEDS ORDERED: LORAZEPAM 2 MG/ML 1 ML VIAL IV PRN (03:30)
--- NOTE | 2017-04-29 04:07 | Surgery Consultation ---
Consultation Date of Consultation: Apr 29, 2017. Attending Physician: Jerilyn Hamilton MD Reason for Consultation: Abdominal pain, partial small bowel obstruction History of Present Illness Alfredito Breen is a 71 year old man with Bipolar disorder, history of GIST s/p small bowel resection with anastomosis x 2 (12/2014, 09/2016 [facility], currently on Sunitinib) who presents with abdominal pain for the past 36 hours. Patient has been at a meditation camp recently, where he has been eating a different diet than normal. States the pain started on Friday night around 10pm. He has a history of bowel obstructions which cause intermittent crampy abdominal pain in the past, but has never been hospitalized before for the problem; states these episodes usually last up to 12 hours but resolve without intervention. Since the pain started, it has been intermittent and crampy. He has had 2 BMs (normal, solid, formed, no melena / hematochezia), but with the second reports a vasovagal episode with dizziness, sweating and nausea. Has not had any vomiting. States he now feels better with the NGT in place. Prior to presentation to the hospital, he tried Tramadol and Oxycodone with minimal relief of symptoms. Otherwise denies fever, chills, headaches, dizziness, vision changes, chest pain, SOB, dysuria or urinary symptoms (though notes dark urine due to low PO intake), pain / numbness / swelling / tingling in extremities. Patient takes daily lovenox (states he has painful priapism when this medication is stopped), but no other anticoagulants. Past Medical/Surgical History Medical History: GIST tumor (on Sunitinib, s/p resection x 2) Lung nodule s/p ablation Bipolar disorder Surgical History: Bilateral inguinal hernia repairs Small bowel resection x 2 for GIST tumors (12/2014, 09/2016 - [facility]) Prostatectomy Family History Cancer Social History Smoking Status: Never Smoker Drug Use: none Marital Status: Housing Status: lives with family Occupation Status: retired Allergies Coded Allergies: Sulfa Antibiotics (Verified Allergy, Severe, ANAPHYLAXIS, BAD RASH, 04/29/17 ) Wasp (Verified Allergy, Severe, HIVES-EPIPEN NEEDED, 04/29/17) Doxycycline (Verified Allergy, Unknown, ITCHYNESS, 04/29/17) Yellow Jacket (Verified Allergy, Unknown, HIVES-SEVERE IN PAST-HAS EPIPEN , 04/29/17) Hydromorphone (Verified Adverse Reaction, Intermediate, Dizzy, 04/29/17) NSAIDs (Verified Adverse Reaction, Unknown, gi bleed, 04/29/17) Home Medications Scheduled Bupropion Hcl (Wellbutrin Xl), 150 MG PO QAM Cholecalciferol (Vitamin D3), 1,000 UNITS PO DAILY Cyanocobalamin (Vitamin B-12), 500 MCG PO DAILY Enoxaparin (Lovenox), 40 MG SQ HS Folic Acid (Folvite), 400 MCG PO DAILY Lamotrigine (Lamictal), 200 MG PO BID Pantoprazole (Protonix), 40 MG PO QAM Ranitidine Hcl (Zantac), 300 MG PO HS Sunitinib Malate (Sutent), 37.5 MG PO QPM Scheduled PRN Acetaminophen (Tylenol), 1,000 MG PO DIRECTED PRN for Pain or Fever Epinephrine (Epipen), 0.3 MG IM UD PRN for ALLERGIC REACTION Lorazepam (Ativan), 0.5 MG PO Q6H PRN for Anxiety/Agitation Ondansetron Hcl (Zofran), 8 MG PO Q6H PRN for Nausea Oxycodone Ir (Roxicodone Ir), 5-10 MG PO Q6H PRN for Pain Tramadol (Ultram), 50 MG PO Q8H PRN for Pain Current Inpatient Medications Current Inpatient Medications Medications (Trade) Dose Ordered Sig/Sapna Route Start Time Stop Time Status Last Admin Dose Admin Ioversol (Optiray 320) 100 ml UD PRN IV 04/29/17 00:30 05/03/17 00:29 Ondansetron HCl (Zofran Inj) 4 mg Q6H PRN IV 04/29/17 03:30 05/29/17 03:29 UNV Bupropion HCl (Wellbutrin-Xl Tab) 150 mg QAM PO 04/29/17 09:00 05/29/17 08:59 UNV Enoxaparin Sodium (Lovenox Inj) 40 mg HS SQ 04/29/17 21:00 05/29/17 20:59 UNV Non-Formulary Medication (Lamotrigine (Lamictal)) 200 mg BID PO 04/29/17 09:00 05/29/17 08:59 UNV Non-Formulary Medication (Sunitinib Malate (Sutent)) 37.5 mg QPM PO 04/29/17 21:00 05/29/17 20:59 UNV Famotidine 20 mg/ Dextrose 102 ml @ 200 mls/hr Q12H IV 04/29/17 03:30 05/29/17 03:29 UNV Lorazepam (Ativan Inj) 0.5 mg Q6H PRN IV 04/29/17 03:30 05/29/17 03:29 UNV Potassium Chloride/Sodium Chloride 1,000 ml @ 100 mls/hr Q10H IV 04/29/17 03:45 04/29/17 23:44 UNV Review of Systems Constitutional: No fever, No chills Eyes: No eye pain, No diplopia Respiratory: No cough, No shortness of breath Cardiovascular: No chest pain, No palpitations Abdomen: + pain, + nausea, No vomiting, No diarrhea, No constipation, No GI bleeding Genitourinary - Male: No dysuria, No urinary frequency, No urinary urgency Physical Exam Date Time Temp Pulse Resp B/P (MAP) Pulse Ox O2 Delivery O2 Flow Rate FiO2 04/29/17 02:18 53 18 150/79 97 Room Air 04/29/17 00:55 60 18 134/85 94 Room Air 04/29/17 00:54 64 04/28/17 23:55 36.6 58 16 124/74 97 Room Air General Appearance: WD/WN, no apparent distress Head: normocephalic, atraumatic Eyes: sclerae normal ENT: + pertinent finding (NGT in place draining green / bilious fluid) Neck: supple Respiratory/Chest: lungs clear, normal breath sounds, no respiratory distress Cardiovascular: regular rate, rhythm, no edema Abdomen/GI: non tender, soft, + pertinent finding (Well healed incisional scars , no hernias palpable) Extremities/Musculoskelatal: normal inspection, no pedal edema Neurologic/Psych: alert, normal mood/affect, oriented x 3 Skin: normal color, warm/dry, no rash Laboratory Results Last 24 Hours Test 04/29/17 00:49 04/29/17 01:43 04/29/17 02:11 White Blood Count 2.97 K/uL Red Blood Count 4.13 M/uL Hemoglobin 12.4 g/dL Hematocrit 37.7 % Mean Corpuscular Volume 91.3 fL Mean Corpuscular Hemoglobin 30.0 pg Mean Corpuscular Hemoglobin Concent 32.9 g/dl Platelet Count 138 K/uL Mean Platelet Volume 11.2 fL Neutrophils (%) (Auto) 43.7 % Lymphocytes (%) (Auto) 40.1 % Monocytes (%) (Auto) 15.2 % Eosinophils (%) (Auto) 0.7 % Basophils (%) (Auto) 0.3 % Neutrophils # (Auto) 1.30 K/uL Lymphocytes # (Auto) 1.19 K/uL Monocytes # (Auto) 0.45 K/uL Eosinophils # (Auto) 0.02 K/uL Basophils # (Auto) 0.01 K/uL RDW Standard Deviation 55.7 fL RDW Coefficient of Variation 17.0 % Immature Granulocyte % (Auto) 0.0 % Immature Granulocyte # (Auto) 0.00 K/uL Sodium Level 142 mmol/L Potassium Level mmol/L 3.9 mmol/L Chloride Level 110 mmol/L Carbon Dioxide Level 24 mmol/L Anion Gap 8.0 mmol/L Blood Urea Nitrogen 24 mg/dl Creatinine 1.10 mg/dl Est Creatinine Clear Calc Drug Dose 61.4 ml/min Estimated GFR () 76.8 Estimated GFR (Non- 66.2 BUN/Creatinine Ratio 22.1 Random Glucose 114 mg/dl Calcium Level 8.7 mg/dl Total Bilirubin 0.5 mg/dl Direct Bilirubin mg/dl 0.1 mg/dl Aspartate Amino Transf (AST/SGOT) U/L 16 U/L Alanine Aminotransferase (ALT/SGPT) 28 U/L Alkaline Phosphatase 64 U/L Total Protein 6.6 gm/dl Albumin 3.6 gm/dl Lipase 112 U/L Chemistry Specimen Hemolysis Urine Color DK YELLOW Urine Appearance CLEAR Urine pH 5.5 Urine Specific [place] 1.034 Urine Protein NEG Urine Glucose (UA) NEG Urine Ketones TRACE Urine Occult Blood NEG Urine Nitrite NEG Urine Bilirubin NEG Urine Urobilinogen NEG Urine Leukocyte Esterase NEG 04/29/17 CT Abd / pelvis with IV contrast (No PO contrast): Final report pending -No free air or fluid appreciated -Dilated loops of small bowel without significant wall thickening -Anastomosis present in RLQ, without PO contrast difficult to tell if this is point of partial obstruction -Air and stool present throughout colon down to rectum -No inguinal or ventral hernias present Assessment & Plan Alfredito Breen is a 71 year old man with Bipolar disorder, history of GIST s/p small bowel resection with anastomosis x 2 (12/2014, 09/2016 [facility], currently on Sunitinib) who presents with symptoms and imaging consistent with a partial bowel obstruction. Patient is afebrile, vitals stable and normal. He is currently comfortable with NGT decompression in place , abdomen is benign on exam. No leukocytosis or other lab abnormalities. He has continued to have bowel function. -Recommend admission for non operative management of partial bowel obstruction -Continue NGT decompression, NPO / bowel rest -IVF hydration, trend labs / correct electrolytes as needed -OK for NGT to be off suction intermittently for ambulation -Pain control as needed, limit use of narcotics if possible -Will continue to follow
[2017-04-29 04:24] VITALS: BP 163/86; PULSE 56; TEMP 36.6; O2SAT 97; Ht 182.9 cm; Wt 72.6 kg
[2017-04-29] MEDS ORDERED: LORAZEPAM INJ 0.5 MG in SYRINGE 0.75 ML IV PRN (04:45)
[2017-04-29] MEDS ORDERED: FAMOTIDINE IV INJ 20 MG in DEXTROSE 5% 100ML 100 ML IV SCH (05:00)
[2017-04-29] MEDS: SODIUM CHLOR 0.45% + 20MEQ KCL 1,000 ML IV SCH ×2 (05:19→15:53)
--- NOTE | 2017-04-29 06:37 | DIAGNOSTIC IMAGING REPORT ---
CT ABD/PELVIS IV CONTRAST ONLY CLINICAL HISTORY: Diffuse abdominal pain COMPARISON STUDY: 02/13/2017 TECHNIQUE: Following the IV administration of 92 mL of Optiray-320, CT scan of the abdomen and pelvis was performed from the lung bases to the proximal femurs. Images are reviewed in the axial, sagittal, and coronal planes. IV contrast was administered without complication. A dose lowering technique was utilized adhering to the principles of ALARA. CT DOSE: 297.49 mGy.cm FINDINGS: Lower chest: There are mild basilar atelectatic changes. Liver: The contrast-enhanced liver is normal in size, contour, and attenuation. There is no intrahepatic biliary ductal dilatation. The hepatic veins and portal veins are patent. Gallbladder: Unremarkable. Spleen: Normal in size and attenuation. Pancreas: Unremarkable. Adrenal glands: Unremarkable. Kidneys: There is a 4 mm left renal hypodensity likely representing a cyst. There are left renal parapelvic cysts present. Bowel: Postsurgical changes are evident. There are dilated mildly thick walled small bowel loops extending to the level of a right mid abdominal anastomosis. The findings are consistent with a partial small bowel obstruction. Small bowel loops measure up to 34 mm in diameter. There is no evidence of acute appendicitis. Peritoneum: There is a small amount of free fluid within the pelvis. No free air is visualized. Vasculature: The abdominal aorta is normal in course and caliber. Adenopathy: None. Pelvic viscera: The bladder, and pelvic viscera are unremarkable. Skeletal structures: There is bilateral L5 spondylolysis. There is a grade 1 spondylolisthesis of L5 on S1. IMPRESSION: 1. Persistent small bowel obstructive pattern. 2. Multiple thick walled small bowel loops, with a small amount of free pelvic fluid. Electronically signed by: Job Redding M.D. 04/29/2017 6:35 AM Dictated Date/Time: 04/29/2017 6:30 AM
[2017-04-29] MEDS ORDERED: [UNRECOGNIZED DRUG - OTHER] SCH (08:00)
[2017-04-29 08:05] VITALS: BP 164/96; PULSE 54; TEMP 36.8; O2SAT 98
--- NOTE | 2017-04-29 08:54 | Family Medicine Progress Note ---
Progress Note Date of Service Apr 29, 2017. Subjective Pt evaluation today including: conversation w/ patient, physical exam, chart review, lab review Pain: None Doing well at this time Notes being pain free Denies nausea; has not had BM an is no passing flatus Notes some nosebleeding after placement of NG tube Constitutional: No fever, No sweats Eyes: No eye pain, No redness ENT: No hearing loss Respiratory: No cough, No sputum, No wheezing, No shortness of breath Cardiovascular: No chest pain, No orthopnea, No PND, No edema Abdomen: No pain, No nausea, No vomiting, No diarrhea Musculoskeletal: No joint pain, No muscle pain Male : No dysuria, No urinary frequency, No incontinence Neurologic: No memory loss, No paralysis, No weakness, No numbness/tingling Psychiatric: No depression symptoms, No anxiety Heme: No abnormal bleeding/bruising, No clotting problems, No swollen lymph nodes Endo: No fatigue, No excessive thirst Skin: No rash, No new/changing skin lesions Medications Current Inpatient Medications Medications (Trade) Dose Ordered Sig/Sapna Route Start Time Stop Time Status Last Admin Dose Admin Ioversol (Optiray 320) 100 ml UD PRN IV 04/29/17 00:30 05/03/17 00:29 Ondansetron HCl (Zofran Inj) 4 mg Q6H PRN IV 04/29/17 03:30 05/29/17 03:29 Bupropion HCl (Wellbutrin-Xl Tab) 150 mg QAM PO 04/29/17 09:00 05/29/17 08:59 Enoxaparin Sodium (Lovenox Inj) 40 mg HS SQ 04/29/17 21:00 05/29/17 20:59 UNV Lamotrigine (Lamictal Tab) 200 mg BID PO 04/29/17 09:00 05/29/17 08:59 Miscellaneous Information (Order Awaiting Action) 1 ea QS N/A 04/29/17 08:00 05/29/17 07:59 Famotidine 20 mg/ Dextrose 102 ml @ 200 mls/hr Q12H IV 04/29/17 05:00 05/29/17 04:59 04/29/17 05:19 200 MLS/HR Potassium Chloride/Sodium Chloride 1,000 ml @ 100 mls/hr Q10H IV 04/29/17 04:45 04/30/17 00:44 04/29/17 05:19 100 MLS/HR Lorazepam 0.5 mg/ Syringe 1 ml @ 1 mls/min Q6H PRN IV 04/29/17 04:45 05/29/17 04:44 Acetaminophen 650 mg/Empty Bag 65 ml @ 260 mls/hr Q6H PRN IV 04/29/17 07:30 05/29/17 07:29 Objective Vital Signs Date Time Temp Pulse Resp B/P (MAP) Pulse Ox O2 Delivery O2 Flow Rate FiO2 04/29/17 08:05 36.8 54 20 164/96 (118) 98 Room Air 04/29/17 04:24 36.6 56 16 163/86 97 Room Air 04/29/17 03:56 60 18 164/91 96 Room Air 04/29/17 02:18 53 18 150/79 97 Room Air 04/29/17 00:55 60 18 134/85 94 Room Air 04/29/17 00:54 64 04/28/17 23:55 36.6 58 16 124/74 97 Room Air Physical Exam General Appearance: WD/WN, no apparent distress Eyes: normal inspection, EOMI ENT: normal ENT inspection, hearing grossly normal, pharynx normal, + pertinent finding (NT tube in place; some dried blood aroun tape and outside of tube) Neck: supple, no adenopathy, no JVD Respiratory/Chest: lungs clear, no respiratory distress Cardiovascular: regular rate, rhythm, no gallop, no murmur Abdomen: normal bowel sounds, non tender, soft Extremities: non-tender, no pedal edema Neurologic/Psychiatric: alert, normal mood/affect, oriented x 3 Skin: normal color, warm/dry, no rash Lymphatic: no adenopathy Laboratory Results Last 24 Hours Test 04/29/17 00:49 04/29/17 01:43 04/29/17 02:11 04/29/17 05:31 White Blood Count 2.97 K/uL Red Blood Count 4.13 M/uL Hemoglobin 12.4 g/dL Hematocrit 37.7 % Mean Corpuscular Volume 91.3 fL Mean Corpuscular Hemoglobin 30.0 pg Mean Corpuscular Hemoglobin Concent 32.9 g/dl Platelet Count 138 K/uL Mean Platelet Volume 11.2 fL Neutrophils (%) (Auto) 43.7 % Lymphocytes (%) (Auto) 40.1 % Monocytes (%) (Auto) 15.2 % Eosinophils (%) (Auto) 0.7 % Basophils (%) (Auto) 0.3 % Neutrophils # (Auto) 1.30 K/uL Lymphocytes # (Auto) 1.19 K/uL Monocytes # (Auto) 0.45 K/uL Eosinophils # (Auto) 0.02 K/uL Basophils # (Auto) 0.01 K/uL RDW Standard Deviation 55.7 fL RDW Coefficient of Variation 17.0 % Immature Granulocyte % (Auto) 0.0 % Immature Granulocyte # (Auto) 0.00 K/uL Sodium Level 142 mmol/L Potassium Level mmol/L 3.9 mmol/L Chloride Level 110 mmol/L Carbon Dioxide Level 24 mmol/L Anion Gap 8.0 mmol/L Blood Urea Nitrogen 24 mg/dl Creatinine 1.10 mg/dl Est Creatinine Clear Calc Drug Dose 61.4 ml/min Estimated GFR () 76.8 Estimated GFR (Non- 66.2 BUN/Creatinine Ratio 22.1 Random Glucose 114 mg/dl Calcium Level 8.7 mg/dl Total Bilirubin 0.5 mg/dl Direct Bilirubin mg/dl 0.1 mg/dl Aspartate Amino Transf (AST/SGOT) U/L 16 U/L Alanine Aminotransferase (ALT/SGPT) 28 U/L Alkaline Phosphatase 64 U/L Total Protein 6.6 gm/dl Albumin 3.6 gm/dl Lipase 112 U/L Chemistry Specimen Hemolysis Urine Color DK YELLOW Urine Appearance CLEAR Urine pH 5.5 Urine Specific [place] 1.034 Urine Protein NEG Urine Glucose (UA) NEG Urine Ketones TRACE Urine Occult Blood NEG Urine Nitrite NEG Urine Bilirubin NEG Urine Urobilinogen NEG Urine Leukocyte Esterase NEG Assessment and Plan 71 year old male, with history of GIST (with resection) and Bipolar. Currently admitted for partial SBO. Doing well at this time. Our plan is as follows: Partial SBO - Likely 2/2 adhesions from hx of abdominal surgery for GIST - Currently pain-free Tylenol PRN - Keep NPO - NG tube in place - Continue NS + KCL at 100 ml/hr - Surgery following; recommendations appreciated Bipolar ds - On Wellbutrin and Lamictal at home; currently NPO - Lamictal can be crushed - Wellbutrin ER cannot be crushed; will car changer to Wellbutrin IR so it can be crushed and put own NG Change to Wellbutrin IR 100 mg BID History GIST - On Sunitinib at home - Not carried by pharmacy; will give orders to allow patient bring own meds; needs to be able to be crushed so it can be given via NGT; will have pharmacy verify DVT prophylaxis - Lovenox - SCD Code Status - Level I Full Code Disposition - Med/Surg Continued [facility] stay due to: inadequate po fluid intake Reviewed: Pt Seen/Exam by Me History feeling uncomfortable due to the NGT. no more bleeding from the right nostril. Constitutional: denies: fever Respiratory: negative: short of breath Cardiovascular: denies chest pain General Appearance: mild distress (sec to NGT) Ears, Nose, Throat: other (NGT in place) Respiratory: lungs clear, no respiratory distress Cardiovascular: regular rate, rhythm Gastrointestinal: non tender, soft, other (diminished bowel sounds) Neurologic/Psychiatric: alert, oriented x 3 Skin Characteristics: warm/dry Assessment/Plan Resident Physician Supervision Note: I was present with Dr. Lang in bedside. I verified the padilla history and physical, reviewed labs and image studies, discussed the case with the resident and agree with the findings and care plan.
[2017-04-29] MEDS ORDERED: BuPROPion XL 150 MG TABCR PO SCH (09:00)
[2017-04-29 10:42] VITALS: O2SAT 98
[2017-04-29 13:04] LABS: INR 0.9 (0.9-1.1); PROTHROMBIN TIME (PATIENT) 9.6 SECONDS (9.0-12.0)
[2017-04-29 15:09] VITALS: BP 185/97; PULSE 66; TEMP 36.9; O2SAT 98
--- NOTE | 2017-04-29 15:24 | Medical Student: [facility] ---
Med Student Progress Note Date of Service Apr 29, 2017. Subjective Pt evaluation today including: conversation w/ patient, physical exam, chart review, lab review, review of studies Patient reports no issues since being admitted to the hospital. His abdominal pain has greatly decreased since having the NG tube placed. He does note that there is some blood present in the NG tube. He is frequently tearing and has rhinorrhea due to the NG tube. Has not moved his bowels or passed flatus since admission. He does report feeling some "bowel gurgling and movement" this morning. He did not sleep well overnight due to the NG tube and is tired this morning. Review of Systems Constitutional: + weakness, + fatigue, No fever, No chills, No sweats Respiratory: No cough, No wheezing, No shortness of breath Cardiac: No chest pain, No orthopnea Abdomen: + pain, + nausea, No vomiting, No diarrhea Endo: + fatigue Skin: No rash, No itch All Other Systems: Reviewed and Negative Objective Vital Signs Date Time Temp Pulse Resp B/P (MAP) Pulse Ox O2 Delivery O2 Flow Rate FiO2 04/29/17 10:42 98 Room Air 04/29/17 08:05 36.8 54 20 164/96 (118) 98 Room Air 04/29/17 07:30 Room Air 04/29/17 04:24 36.6 56 16 163/86 97 Room Air 04/29/17 03:56 60 18 164/91 96 Room Air 04/29/17 02:18 53 18 150/79 97 Room Air 04/29/17 00:55 60 18 134/85 94 Room Air 04/29/17 00:54 64 04/28/17 23:55 36.6 58 16 124/74 97 Room Air Physical Exam General Appearance: WD/WN, + mild distress Eyes: bilateral eyes normal inspection, bilateral eyes PERRL, bilateral eyes EOMI ENT: normal ENT inspection (NG tube present) Neck: supple, no adenopathy, thyroid normal, no JVD, no carotid bruits, trachea midline Respiratory/Chest: chest non-tender, lungs clear, normal breath sounds, no respiratory distress, no accessory muscle use Cardiovascular: regular rate, rhythm, no edema, no gallop, no JVD, no murmur Abdomen: soft, no organomegaly, + abnormal bowel sounds, + guarding (Some guarding is present over the umbillicus upon deep palpation), + tenderness Extremities: normal inspection, no pedal edema, no calf tenderness Neurologic/Psychiatric: no motor/sensory deficits, alert, normal mood/affect, oriented x 3 Skin: normal color Laboratory Results Last 24 Hours Test 04/29/17 00:49 04/29/17 01:43 04/29/17 02:11 04/29/17 12:34 White Blood Count 2.97 K/uL Red Blood Count 4.13 M/uL Hemoglobin 12.4 g/dL Hematocrit 37.7 % Mean Corpuscular Volume 91.3 fL Mean Corpuscular Hemoglobin 30.0 pg Mean Corpuscular Hemoglobin Concent 32.9 g/dl Platelet Count 138 K/uL Mean Platelet Volume 11.2 fL Neutrophils (%) (Auto) 43.7 % Lymphocytes (%) (Auto) 40.1 % Monocytes (%) (Auto) 15.2 % Eosinophils (%) (Auto) 0.7 % Basophils (%) (Auto) 0.3 % Neutrophils # (Auto) 1.30 K/uL Lymphocytes # (Auto) 1.19 K/uL Monocytes # (Auto) 0.45 K/uL Eosinophils # (Auto) 0.02 K/uL Basophils # (Auto) 0.01 K/uL RDW Standard Deviation 55.7 fL RDW Coefficient of Variation 17.0 % Immature Granulocyte % (Auto) 0.0 % Immature Granulocyte # (Auto) 0.00 K/uL Sodium Level 142 mmol/L Potassium Level mmol/L 3.9 mmol/L Chloride Level 110 mmol/L Carbon Dioxide Level 24 mmol/L Anion Gap 8.0 mmol/L Blood Urea Nitrogen 24 mg/dl Creatinine 1.10 mg/dl Est Creatinine Clear Calc Drug Dose 61.4 ml/min Estimated GFR () 76.8 Estimated GFR (Non- 66.2 BUN/Creatinine Ratio 22.1 Random Glucose 114 mg/dl Calcium Level 8.7 mg/dl Total Bilirubin 0.5 mg/dl Direct Bilirubin mg/dl 0.1 mg/dl Aspartate Amino Transf (AST/SGOT) U/L 16 U/L Alanine Aminotransferase (ALT/SGPT) 28 U/L Alkaline Phosphatase 64 U/L Total Protein 6.6 gm/dl Albumin 3.6 gm/dl Lipase 112 U/L Chemistry Specimen Hemolysis Urine Color DK YELLOW Urine Appearance CLEAR Urine pH 5.5 Urine Specific [place] 1.034 Urine Protein NEG Urine Glucose (UA) NEG Urine Ketones TRACE Urine Occult Blood NEG Urine Nitrite NEG Urine Bilirubin NEG Urine Urobilinogen NEG Urine Leukocyte Esterase NEG Prothrombin Time 9.6 SECONDS Prothromb Time International Ratio 0.9 Assessment and Plan Assessment and Plan: Assessment This is a 71 year old man with a 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 Plan Small bowel obstruction -Secondary to areas of stricture following bowel resection for GIST -NG tube in place with suction. Re-evaluate this evening for possible removal -Remain NPO. Remain on NS drip at 100mL/hr while NPO -Tylenol PRN for pain. Not currently having pain now -Surgery is following. Appreciate recommendations. Anxiety/Bipolar -On wellbutrin and lamictal at home. Currently giving lamictal crushed through NG tube -Wellbutrin ER cannot be crushed. Have switched to Wellbutrin IR for now which can be crushed and given through the NG tube. -Will return to normal home medications (wellbutrin ER) after patient is able to tolerate PO Hx of GIST -On Sunitinib at home. Will continue to give this through NG tube at home dose. DVT prophylaxis -Lovenox injection and SCD in place. Continued [facility] stay due to: inadequate po fluid intake
[2017-04-29] MEDS ORDERED: HydrALAZINE HCL 20 MG/ML VIAL IV. PRN (16:30)
[2017-04-29] MEDS ORDERED: HYDROCODONE/ACETAMOPHEN 5/325MG TAB PO PRN (18:00)
[2017-04-29] MEDS: SUNITINIB MALATE 37.5 MG PO SCH (21:00)
[2017-04-29] MEDS: PANTOprazole INJ 40 MG in SYRINGE 0 ML IV SCH (21:15)
[2017-04-29] MEDS: ENOXAPARIN 40 MG/0.4 ML SYR SQ SCH (21:16)
[2017-04-29] MEDS: RANITIDINE IV 50 MG in DEXTROSE 5% 100ML 100 ML IV SCH (21:17)
[2017-04-29] MEDS: ACETAMINOPHEN IV 650 MG in EMPTY BAG 0 ML IV PRN (23:04)
[2017-04-29 23:16] VITALS: BP 150/91; PULSE 71; TEMP 37.4; O2SAT 97
[2017-04-30 06:20] LABS: HEMATOCRIT 38.2 % (42-52); MEAN CELL VOLUME 91.2 fL (80-100); MEAN CORPUSCULAR HEMOGLOBIN 30.1 pg (25-34); MEAN PLATELET VOLUME 10.8 fL (7.4-10.4); PLATELET COUNT 121 K/uL (130-400); RED BLOOD COUNT 4.19 M/uL (4.7-6.1); WHITE BLOOD COUNT 3.82 K/uL (4.8-10.8)
[2017-04-30 06:57] LABS: BUN/CREATININE RATIO 15.6 (10-20); CALCIUM 8.3 mg/dl (8.5-10.1); CREATININE 1.1 mg/dl (0.60-1.40); POTASSIUM 3.6 mmol/L (3.5-5.1)
[2017-04-30 07:00] LABS: ALB/GLOB RATIO 1.2 (0.9-2)
[2017-04-30 08:05] VITALS: BP 142/74; PULSE 60; TEMP 37.1; O2SAT 97
[2017-04-30 08:07] VITALS: O2SAT 97
--- NOTE | 2017-04-30 08:49 | Family Medicine Progress Note ---
Progress Note Date of Service Apr 30, 2017. Subjective Pt evaluation today including: conversation w/ patient, physical exam, chart review, lab review Pain: Little pain in lower abdomen Voiding: no voiding problems Patient notes he feels better than arrival Does complain of low grade abdominal discomfort in right lower abdomen States that in general he feels tired and fatigued Remains NPO with NG tube in place Constitutional: No fever, No chills, No sweats Eyes: No worsening of vision, No redness, No discharge ENT: No hearing loss, No nasal symptoms, No sore throat Respiratory: No cough, No wheezing, No shortness of breath Cardiovascular: No chest pain, No claudication, No palpitations Abdomen: + pain (RLQ, mild), No nausea, No vomiting, No diarrhea, No constipation Musculoskeletal: No joint pain, No muscle pain Male : No dysuria, No urinary frequency Neurologic: No weakness, No numbness/tingling, No vertigo Psychiatric: No anxiety, No insomnia Heme: No clotting problems, No swollen lymph nodes Endo: No fatigue, No excessive thirst Skin: No rash, No new/changing skin lesions, No color change All Other Systems: Reviewed and Negative Medications Current Inpatient Medications Medications (Trade) Dose Ordered Sig/Sapna Route Start Time Stop Time Status Last Admin Dose Admin Ioversol (Optiray 320) 100 ml UD PRN IV 04/29/17 00:30 05/03/17 00:29 Ondansetron HCl (Zofran Inj) 4 mg Q6H PRN IV 04/29/17 03:30 05/29/17 03:29 Bupropion HCl (Wellbutrin-Xl Tab) 150 mg QAM PO 04/29/17 09:00 05/29/17 08:59 Future Hold Enoxaparin Sodium (Lovenox Inj) 40 mg HS SQ 04/29/17 21:00 05/29/17 20:59 04/29/17 21:16 40 MG Lorazepam 0.5 mg/ Syringe 1 ml @ 1 mls/min Q6H PRN IV 04/29/17 04:45 05/29/17 04:44 Acetaminophen 650 mg/Empty Bag 65 ml @ 260 mls/hr Q6H PRN IV 04/29/17 07:30 05/29/17 07:29 04/29/17 23:04 260 MLS/HR Lamotrigine (Lamictal Tab) 200 mg BID NG 04/29/17 10:00 05/29/17 09:59 04/29/17 18:58 200 MG Bupropion HCl (Wellbutrin Tab) 100 mg BID NG 04/29/17 10:00 05/29/17 09:59 Hydralazine HCl (HydrALAZINE INJ) 10 mg Q4H PRN IV. 04/29/17 16:30 05/29/17 16:29 04/29/17 16:41 10 MG Ranitidine HCl 50 mg/Dextrose 102 ml @ 200 mls/hr HS IV 04/29/17 21:00 05/29/17 20:59 04/29/17 21:17 200 MLS/HR Pantoprazole Sodium 40 mg/ Syringe 10 ml @ 5 mls/min HS IV 04/29/17 21:00 05/29/17 20:59 04/29/17 21:15 5 MLS/MIN Acetaminophen/ Hydrocodone Bitart ([place] 5/325 Tab) 1 tab Q4H PRN PO 04/29/17 18:00 05/13/17 17:59 Potassium Chloride/Sodium Chloride 1,000 ml @ 110 mls/hr Q9H6M IV 04/30/17 07:15 05/30/17 07:14 Objective Vital Signs Date Time Temp Pulse Resp B/P (MAP) Pulse Ox O2 Delivery O2 Flow Rate FiO2 04/30/17 08:07 97 Room Air 04/30/17 08:05 37.1 60 20 142/74 (96) 97 Room Air 04/30/17 00:45 Room Air 04/29/17 23:16 37.4 71 14 150/91 (110) 97 Room Air 04/29/17 15:30 Room Air 04/29/17 15:09 36.9 66 16 185/97 (126) 98 Room Air 04/29/17 10:42 98 Room Air Physical Exam General Appearance: WD/WN, no apparent distress Eyes: normal inspection, EOMI ENT: hearing grossly normal, pharynx normal, + pertinent finding (NG tube in place; dark bilious contents draining) Neck: supple, no adenopathy, no JVD Respiratory/Chest: lungs clear, no respiratory distress Cardiovascular: regular rate, rhythm, no gallop, no murmur Abdomen: normal bowel sounds, non tender, soft, + tenderness (mild suprapubic and RLQ tenderness; no guarding or Rigidity, Rovisigns negative) Extremities: non-tender, no pedal edema Neurologic/Psychiatric: no motor/sensory deficits, alert, oriented x 3 Skin: normal color, warm/dry, no rash Lymphatic: no adenopathy Laboratory Results Last 24 Hours Test 04/29/17 12:34 04/30/17 05:48 Prothrombin Time 9.6 SECONDS Prothromb Time International Ratio 0.9 White Blood Count 3.82 K/uL Red Blood Count 4.19 M/uL Hemoglobin 12.6 g/dL Hematocrit 38.2 % Mean Corpuscular Volume 91.2 fL Mean Corpuscular Hemoglobin 30.1 pg Mean Corpuscular Hemoglobin Concent 33.0 g/dl RDW Standard Deviation 55.6 fL RDW Coefficient of Variation 16.8 % Platelet Count 121 K/uL Mean Platelet Volume 10.8 fL Sodium Level 139 mmol/L Potassium Level 3.6 mmol/L Chloride Level 106 mmol/L Carbon Dioxide Level 26 mmol/L Anion Gap 7.0 mmol/L Blood Urea Nitrogen 17 mg/dl Creatinine 1.10 mg/dl Est Creatinine Clear Calc Drug Dose 61.4 ml/min Estimated GFR () 76.8 Estimated GFR (Non- 66.2 BUN/Creatinine Ratio 15.6 Random Glucose 86 mg/dl Calcium Level 8.3 mg/dl Total Bilirubin 0.6 mg/dl Aspartate Amino Transf (AST/SGOT) 15 U/L Alanine Aminotransferase (ALT/SGPT) 23 U/L Alkaline Phosphatase 61 U/L Total Protein 6.4 gm/dl Albumin 3.5 gm/dl Globulin 2.9 gm/dl Albumin/Globulin Ratio 1.2 Assessment and Plan 71 year old male, with history of GIST (with resection) and Bipolar. Day 2 for SBO management. Doing well overall. Our plan is as follows: Partial SBO - Likely 2/2 adhesions from hx of abdominal surgery for GIST - Currently has low grade RLQ and suprapubic tenderness without guarding or localizing signs - Keep NPO; NGT clamping today, - Continue NS + 20 mEq KCL at 110 ml/hr - Surgery following; recommendations appreciated Bipolar ds - On Wellbutrin and Lamictal at home; currently NPO - Lamictal and Wellbutrin IR via NGT (can be crushed0 Resume Wellbutrin SR when NG tube out and tolerating PO History GIST - On Sunitinib at home - Allowed to take Sunitib with water - Patient has decided to hold Sunitinib until SBO clears up; I have noted that he is allowed but prefers to wait as it does irritate his throat GERD - Takes Zantac and Protonix PO at home - Changed to IV while NPO DVT prophylaxis - Lovenox HS; taken at home to manage painful priapism - SCD Code Status - Level I Full Code Disposition - Med/Surg Continued [facility] stay due to: inadequate po fluid intake Discharge planning: home Reviewed: Pt Seen/Exam by Me History abdomen with mild tenderness did pass gas this am Constitutional: denies: fever Respiratory: negative: short of breath Cardiovascular: denies chest pain General Appearance: no apparent distress Ears, Nose, Throat: other (NGT in place) Respiratory: lungs clear, no respiratory distress Cardiovascular: regular rate, rhythm Gastrointestinal: normal bowel sounds, soft, tenderness (minimal right mid abdomen) Neurologic/Psychiatric: alert, oriented x 3 Skin Characteristics: warm/dry Assessment/Plan Resident Physician Supervision Note: I was present with Dr. Lang in bedside. I verified the padilla history and physical, reviewed labs and image studies, discussed the case with the resident and agree with the findings and care plan.
[2017-04-30] MEDS: NSS + 20MEQ KCL 1000ML 1,000 ML IV SCH ×2 (09:34→17:02)
--- NOTE | 2017-04-30 12:22 | Medical Student: [facility] ---
Med Student Progress Note Date of Service Apr 30, 2017. Subjective Pt evaluation today including: conversation w/ patient, conversation w/ family , physical exam, chart review, lab review No acute events overnight. Patient reports occasional "fleeting" moments of abdominal pain. He complains of watery eyes due to nasal irritation with the NG tube. Reports he started passing some flatus this morning. No bowel movements since admission. Review of Systems Constitutional: No fever, No chills, No sweats Eyes: + discharge (Watery eyes secondary to NG tube) Respiratory: No cough, No wheezing, No shortness of breath, No dyspnea at rest Cardiac: No chest pain, No orthopnea, No edema Abdomen: + pain, No nausea Male : No dysuria, No urinary frequency All Other Systems: Reviewed and Negative Objective Vital Signs Date Time Temp Pulse Resp B/P (MAP) Pulse Ox O2 Delivery O2 Flow Rate FiO2 04/30/17 08:07 97 Room Air 04/30/17 08:05 37.1 60 20 142/74 (96) 97 Room Air 04/30/17 00:45 Room Air 04/29/17 23:16 37.4 71 14 150/91 (110) 97 Room Air 04/29/17 15:30 Room Air 04/29/17 15:09 36.9 66 16 185/97 (126) 98 Room Air Physical Exam Eyes: bilateral eyes normal inspection, bilateral eyes PERRL, bilateral eyes EOMI ENT: normal ENT inspection, hearing grossly normal, pharynx normal Neck: supple, no adenopathy, thyroid normal, no JVD, no carotid bruits Respiratory/Chest: chest non-tender, lungs clear, normal breath sounds, no respiratory distress, no accessory muscle use Cardiovascular: regular rate, rhythm, no edema, no gallop, no JVD, no murmur Abdomen: soft, no organomegaly, no pulsatile mass, + abnormal bowel sounds ( Slightly hyperactive bowel sounds), + tenderness (periumbilical tenderness on deep palpation) Extremities: non-tender, normal inspection, no pedal edema, no calf tenderness Neurologic/Psychiatric: alert, normal mood/affect, oriented x 3 Skin: normal color, warm/dry, no rash Lymphatic: no adenopathy Laboratory Results Last 24 Hours Test 04/29/17 12:34 04/30/17 05:48 Prothrombin Time 9.6 SECONDS Prothromb Time International Ratio 0.9 White Blood Count 3.82 K/uL Red Blood Count 4.19 M/uL Hemoglobin 12.6 g/dL Hematocrit 38.2 % Mean Corpuscular Volume 91.2 fL Mean Corpuscular Hemoglobin 30.1 pg Mean Corpuscular Hemoglobin Concent 33.0 g/dl RDW Standard Deviation 55.6 fL RDW Coefficient of Variation 16.8 % Platelet Count 121 K/uL Mean Platelet Volume 10.8 fL Sodium Level 139 mmol/L Potassium Level 3.6 mmol/L Chloride Level 106 mmol/L Carbon Dioxide Level 26 mmol/L Anion Gap 7.0 mmol/L Blood Urea Nitrogen 17 mg/dl Creatinine 1.10 mg/dl Est Creatinine Clear Calc Drug Dose 61.4 ml/min Estimated GFR () 76.8 Estimated GFR (Non- 66.2 BUN/Creatinine Ratio 15.6 Random Glucose 86 mg/dl Calcium Level 8.3 mg/dl Total Bilirubin 0.6 mg/dl Aspartate Amino Transf (AST/SGOT) 15 U/L Alanine Aminotransferase (ALT/SGPT) 23 U/L Alkaline Phosphatase 61 U/L Total Protein 6.4 gm/dl Albumin 3.5 gm/dl Globulin 2.9 gm/dl Albumin/Globulin Ratio 1.2 Assessment and Plan Assessment and Plan: Assessment and Plan: Assessment This is a 71 year old man with a 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 Plan Small bowel obstruction -Secondary to areas of stricture following bowel resection for GIST -NG tube in place with suction. Surgery is planning on clamping the NG tube and removing later this afternoon. -Remain NPO. Remain on NS drip at 100mL/hr while NPO -Tylenol PRN for pain. Not currently having pain now Anxiety/Bipolar -Will return to normal home medications (wellbutrin ER and lamictal) after patient has NG tube removed. Hx of GIST -On Sunitinib at home. Will continue to give this through NG tube at home dose. DVT prophylaxis -Lovenox injection and SCD in place. Continued [facility] stay due to: inadequate po fluid intake Discharge planning: home
[2017-04-30] MEDS ORDERED: COUGH DROP (SUGAR FREE) LOZ 24 LOZ/1 BOX PO PRN (13:15)
[2017-04-30] MEDS ORDERED: NURSING VERBAL MED ORDER ONE (13:15)
--- NOTE | 2017-04-30 13:23 | Surgery Progress Note ---
Surgery Progress Note Date of Service Apr 30, 2017. Subjective Post OP Day: HD # 1 + ambulating, + flatus, + pain controlled, No chest pain, No SOB, No bowel movement, No nausea, No vomiting Feeling fatigue and tired Watery eyes and swelling due to NGT Abdominal pain better than when he came to hospital Objective Vital Signs: Date Time Temp Pulse Resp B/P (MAP) Pulse Ox O2 Delivery O2 Flow Rate FiO2 04/30/17 08:07 97 Room Air 04/30/17 08:05 37.1 60 20 142/74 (96) 97 Room Air 04/30/17 07:30 Room Air 04/30/17 00:45 Room Air 04/29/17 23:16 37.4 71 14 150/91 (110) 97 Room Air 04/29/17 15:30 Room Air 04/29/17 15:09 36.9 66 16 185/97 (126) 98 Room Air General Appearance: WD/WN, no apparent distress Head: normocephalic, atraumatic Neck: trachea midline Respiratory/Chest: no respiratory distress, no accessory muscle use Abdomen: non distended, soft, + tenderness (RLQ and slight voluntary guarding, no rebound or rigidity or peritonitis), + pertinent finding (midline lapartomy scar ) Laboratory Results: Results Past 24 Hours Test 04/30/17 05:48 Range/Units White Blood Count 3.82 4.8-10.8 K/uL Red Blood Count 4.19 4.7-6.1 M/uL Hemoglobin 12.6 14.0-18.0 g/dL Hematocrit 38.2 42-52 % Mean Corpuscular Volume 91.2 80-100 fL Mean Corpuscular Hemoglobin 30.1 25-34 pg Mean Corpuscular Hemoglobin Concent 33.0 32-36 g/dl RDW Standard Deviation 55.6 36.4-46.3 fL RDW Coefficient of Variation 16.8 11.5-14.5 % Platelet Count 121 130-400 K/uL Mean Platelet Volume 10.8 7.4-10.4 fL Sodium Level 139 136-145 mmol/L Potassium Level 3.6 3.5-5.1 mmol/L Chloride Level 106 98-107 mmol/L Carbon Dioxide Level 26 21-32 mmol/L Anion Gap 7.0 3-11 mmol/L Blood Urea Nitrogen 17 7-18 mg/dl Creatinine 1.10 0.60-1.40 mg/dl Est Creatinine Clear Calc Drug Dose 61.4 ml/min Estimated GFR () 76.8 Estimated GFR (Non- 66.2 BUN/Creatinine Ratio 15.6 10-20 Random Glucose 86 70-99 mg/dl Calcium Level 8.3 8.5-10.1 mg/dl Total Bilirubin 0.6 0.2-1 mg/dl Aspartate Amino Transf (AST/SGOT) 15 15-37 U/L Alanine Aminotransferase (ALT/SGPT) 23 12-78 U/L Alkaline Phosphatase 61 45-117 U/L Total Protein 6.4 6.4-8.2 gm/dl Albumin 3.5 3.4-5.0 gm/dl Globulin 2.9 2.5-4.0 gm/dl Albumin/Globulin Ratio 1.2 0.9-2 Assessment & Plan Partial SBO - Vitals stable - No leukocytosis - abdomen soft, tender on palpation in RLQ - NGT with bilious output, 150 in last shift - Passing flatus Plan: Will trial clamping NGT and will reassess tomorrow morning. If patient has no nausea , vomiting, or pain and still passing flatus may remove NGT tomorrow Continue NPO Continue current medical management encourage ambulation and OOB as much as possible will follow Dr. Hamilton has seen and examined patient, agrees with above
[2017-04-30 15:31] VITALS: BP 151/77; PULSE 60; TEMP 37.3; O2SAT 97
[2017-04-30 15:58] VITALS: BP 150/77
[2017-04-30] MEDS: PANTOprazole INJ 40 MG in SYRINGE 0 ML IV SCH (20:16)
[2017-04-30] MEDS: SUNITINIB MALATE 37.5 MG PO SCH (20:17)
[2017-04-30] MEDS: ENOXAPARIN 40 MG/0.4 ML SYR SQ SCH (20:17)
[2017-04-30] MEDS: RANITIDINE IV 50 MG in DEXTROSE 5% 100ML 100 ML IV SCH (20:47)
[2017-04-30 23:54] VITALS: BP 153/79; PULSE 54; TEMP 37; O2SAT 98
[2017-05-01] MEDS: NSS + 20MEQ KCL 1000ML 1,000 ML IV SCH ×3 (01:25→18:54)
[2017-05-01] MEDS ORDERED: NURSING DECISION MEDICATION ORDER SCH (06:00)
[2017-05-01 07:01] VITALS: BP 151/75; PULSE 61; TEMP 37; O2SAT 96
--- NOTE | 2017-05-01 07:55 | Surgery Progress Note ---
Surgery Progress Note Date of Service May 01, 2017. Subjective + feeling well, + ambulating, + flatus, + pain controlled, No nausea, No vomiting Patient sitting up in chair this morning, feels well. Major complaint is irritation in the sinuses / throat from the NGT. Denies N/V. Abdomen soft, slightly distended, non tender to palpation. Passing flatus, states he is starting to feel the urge for a BM this morning. Ambulating in the hallways multiple times. Urinating without difficulty. Objective Vital Signs: Date Time Temp Pulse Resp B/P (MAP) Pulse Ox O2 Delivery O2 Flow Rate FiO2 05/01/17 07:01 37.0 61 16 151/75 (100) 96 Room Air 05/01/17 00:30 Room Air 04/30/17 23:54 37.0 54 16 153/79 (103) 98 Room Air 04/30/17 15:58 150/77 (101) 04/30/17 15:45 Room Air 04/30/17 15:31 37.3 60 16 151/77 (101) 97 Room Air 04/30/17 08:07 97 Room Air 04/30/17 08:05 37.1 60 20 142/74 (96) 97 Room Air General Appearance: WD/WN, no apparent distress Head: normocephalic, atraumatic Neck: supple Respiratory/Chest: lungs clear, normal breath sounds Cardiovascular: regular rate, rhythm Abdomen: soft, + distended (mildly) Laboratory Results: Results Past 24 Hours Test 05/01/17 04:44 Range/Units Assessment & Plan Assessment: Alfredito Breen is a 71 year old man with history of bowel resection for GIST tumor who was admitted with a partial small bowel obstruction. Vitals stable and normal, NGT clamped overnight. Denies return of abdominal pain, N/V. Passing flatus, feels like having urge to have BM this morning. Ambulating and voiding without difficulty. -Discontinue NGT (order placed) -Continue IVF hydration until tolerating adequate PO intake -Ice chips only until patient starts having BMs -Discussed with patient possible enema to help move out stool if unable to have BM this morning (lots of air and stool in colon on CT scan on admission) -Encouraged ambulation -Patient understands and agrees with the above plan
--- NOTE | 2017-05-01 07:57 | Family Medicine Progress Note ---
Progress Note Date of Service May 01, 2017. Subjective Pt evaluation today including: conversation w/ patient, conversation w/ family , physical exam, chart review, lab review Voiding: no incontinence Pt is sitting comfortably in chair, reading from his laptop. in room during interview. Pt states that since the NG tube was taken out this AM, his nostril (RT) is sore, but denies any bleeding or discharge. Pt also complains of some irritation and puffiness in his RT eyelid, but states that his eyes have been chronically dry while on his chemo regimen for his GIST tumor ( Sunitinib). Pt states he is passing flatus, but no BM yet. States that he spoke with surgery Dr. Hamilton and they discussed the possibility of having an enema. Pt states that he is hungry. Pt's asked if his PET scan that is scheduled next Friday at outpatient [facility] could be done here instead. We spoke about it and thought it would be best to simply cancel that appointment since he would be required dietary restrictions for that as well, and pt reports he's been through enough stress. Constitutional: No fever, No chills Respiratory: No cough, No sputum, No wheezing Cardiovascular: No chest pain, No edema Abdomen: + constipation (no BM since admission), No pain, No vomiting, No diarrhea Male : No dysuria, No urinary frequency, No incontinence Medications Current Inpatient Medications Medications (Trade) Dose Ordered Sig/Sapna Route Start Time Stop Time Status Last Admin Dose Admin Ioversol (Optiray 320) 100 ml UD PRN IV 04/29/17 00:30 05/03/17 00:29 Ondansetron HCl (Zofran Inj) 4 mg Q6H PRN IV 04/29/17 03:30 05/29/17 03:29 Bupropion HCl (Wellbutrin-Xl Tab) 150 mg QAM PO 04/29/17 09:00 05/29/17 08:59 Future Hold Enoxaparin Sodium (Lovenox Inj) 40 mg HS SQ 04/29/17 21:00 05/29/17 20:59 04/30/17 20:17 40 MG Lorazepam 0.5 mg/ Syringe 1 ml @ 1 mls/min Q6H PRN IV 04/29/17 04:45 05/29/17 04:44 Acetaminophen 650 mg/Empty Bag 65 ml @ 260 mls/hr Q6H PRN IV 04/29/17 07:30 05/29/17 07:29 05/01/17 09:24 260 MLS/HR Lamotrigine (Lamictal Tab) 200 mg BID NG 04/29/17 10:00 05/29/17 09:59 05/01/17 09:23 200 MG Bupropion HCl (Wellbutrin Tab) 100 mg BID NG 04/29/17 10:00 05/29/17 09:59 05/01/17 09:23 100 MG Hydralazine HCl (HydrALAZINE INJ) 10 mg Q4H PRN IV. 04/29/17 16:30 05/29/17 16:29 04/29/17 16:41 10 MG Ranitidine HCl 50 mg/Dextrose 102 ml @ 200 mls/hr HS IV 04/29/17 21:00 05/29/17 20:59 04/30/17 20:47 200 MLS/HR Pantoprazole Sodium 40 mg/ Syringe 10 ml @ 5 mls/min HS IV 04/29/17 21:00 05/29/17 20:59 04/30/17 20:16 5 MLS/MIN Acetaminophen/ Hydrocodone Bitart ([place] 5/325 Tab) 1 tab Q4H PRN PO 04/29/17 18:00 05/13/17 17:59 04/30/17 20:19 1 TAB Potassium Chloride/Sodium Chloride 1,000 ml @ 110 mls/hr Q9H6M IV 04/30/17 07:15 05/30/17 07:14 05/01/17 10:12 110 MLS/HR Menthol (Nice Max) 1 max PRN PRN PO 04/30/17 13:15 05/30/17 13:14 04/30/17 13:40 1 MAX Objective Vital Signs Date Time Temp Pulse Resp B/P (MAP) Pulse Ox O2 Delivery O2 Flow Rate FiO2 05/01/17 15:19 36.8 60 16 135/77 (96) 99 Room Air 05/01/17 07:30 Room Air 05/01/17 07:01 37.0 61 16 151/75 (100) 96 Room Air 05/01/17 00:30 Room Air 8/2/17 23:54 37.0 54 16 153/79 (103) 98 Room Air Physical Exam General Appearance: WD/WN, no apparent distress Eyes: normal inspection, PERRL, EOMI, + pertinent finding (RT eyelid is moderately edematous) ENT: hearing grossly normal, pharynx normal, + pertinent finding (dried blood in RT nostril; otherwise wnl) Respiratory/Chest: lungs clear, normal breath sounds, no respiratory distress, no accessory muscle use Cardiovascular: regular rate, rhythm, no edema, no JVD Abdomen: non tender, soft, + pertinent finding (decreased bowel sounds in RLQ; nl bowel sounds in all other quadrants. No guarding.) Neurologic/Psychiatric: alert, normal mood/affect, oriented x 3 Skin: normal color, warm/dry, no rash Laboratory Results 05/01/17 08:32 05/01/17 08:32 Test 05/01/17 08:32 Red Blood Count 4.08 M/uL (4.7-6.1) Mean Corpuscular Volume 91.4 fL (80-100) Mean Corpuscular Hemoglobin 29.4 pg (25-34) Mean Corpuscular Hemoglobin Concent 32.2 g/dl (32-36) RDW Standard Deviation 55.0 fL (36.4-46.3) RDW Coefficient of Variation 16.6 % (11.5-14.5) Mean Platelet Volume 10.9 fL (7.4-10.4) Anion Gap 9.0 mmol/L (3-11) Est Creatinine Clear Calc Drug Dose 71.9 ml/min Estimated GFR () 92.9 Estimated GFR (Non- 80.1 BUN/Creatinine Ratio 18.2 (10-20) Calcium Level 8.2 mg/dl (8.5-10.1) Total Bilirubin 0.7 mg/dl (0.2-1) Aspartate Amino Transf (AST/SGOT) 12 U/L (15-37) Alanine Aminotransferase (ALT/SGPT) 21 U/L (12-78) Alkaline Phosphatase 62 U/L (45-117) Total Protein 6.5 gm/dl (6.4-8.2) Albumin 3.4 gm/dl (3.4-5.0) Globulin 3.1 gm/dl (2.5-4.0) Albumin/Globulin Ratio 1.1 (0.9-2) Assessment and Plan 71M hospital day 3, here for partial SBO, h/o GIST, abdominal surgeries (December 2014 and Sep 2016) and bipolar. Improving. Partial SBO - likely due to strictures from his 2 abdominal 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 - Currently has no evidence of RLQ suprapubic tenderness (lots of air and stool in colon on CT scan on admission). - Per surg, NGT dc'ed, ice chips until pt starts having BM's - encourage ambulation - Discussed plan for enema with surg and pt, will receive enema this evening. - Clear liquid diet once pt has BM. - Continue NS + 20 mEq KCL at 110 ml/hr Bipolar ds - on Wellbutrin and Lamictal at home - meds had to be crushed while NPO - has resumed PO today History of GIST - on Sunitinib at home - pt decided to hold while NPO despite understanding it would be allowed with water. - has resumed PO today GERD - takes Zantac and Protonix PO at home - changed to IV while NPO. Will likely resume PO tomorrow DVT prophylaxis - Lovenox HS; taken at home to manage painful priapism - SCD Code Status - Level I Full Code Disposition - Med/Surg Continued [facility] stay due to: multiple IV medications needed Discharge planning: home Reviewed: Pt Seen/Exam by Me History feeling better being off of NGT wants to eat. Constitutional: denies: fever Respiratory: negative: short of breath Cardiovascular: denies chest pain General Appearance: no apparent distress Respiratory: lungs clear, no respiratory distress Cardiovascular: regular rate, rhythm Gastrointestinal: normal bowel sounds, non tender, soft Neurologic/Psychiatric: alert, oriented x 3 Assessment/Plan Resident Physician Supervision Note: I was present with Dr. Lang in bedside. I verified the padilla history and physical, reviewed labs and image studies, discussed the case with the resident and agree with the findings and care plan.
[2017-05-01 08:57] LABS: HEMATOCRIT 37.3 % (42-52); MEAN CELL VOLUME 91.4 fL (80-100); MEAN CORPUSCULAR HEMOGLOBIN 29.4 pg (25-34); MEAN CORPUSCULAR HGB CONC 32.2 g/dl (32-36); MEAN PLATELET VOLUME 10.9 fL (7.4-10.4); PLATELET COUNT 128 K/uL (130-400); RED BLOOD COUNT 4.08 M/uL (4.7-6.1); WHITE BLOOD COUNT 4.45 K/uL (4.8-10.8)
[2017-05-01 09:24] LABS: CREATININE 0.94 mg/dl (0.60-1.40)
[2017-05-01] MEDS: ACETAMINOPHEN IV 650 MG in EMPTY BAG 0 ML IV PRN (09:24)
[2017-05-01 09:25] LABS: BUN/CREATININE RATIO 18.2 (10-20); CALCIUM 8.2 mg/dl (8.5-10.1)
[2017-05-01 09:27] LABS: ALB/GLOB RATIO 1.1 (0.9-2)
--- NOTE | 2017-05-01 13:25 | Medical Student: [facility] ---
Med Student Progress Note Date of Service May 01, 2017. Subjective Pt evaluation today including: conversation w/ patient, physical exam, chart review, lab review, review of studies Voiding: no voiding problems No acute events overnight. This AM resting in his chair using his laptop. Patient experienced some nasal/posterior pharynx pain after removing the NG tube this morning. He attributes this to "hypersensitive mucosa since having his chemo treatments". Still complains of increased tearing of his eyes which he anticipates will improve with the NG tube now being removed. He continues to pass flatus, but no stool. He reports feeling "the beginning urges to have a bowel movement". Review of Systems Constitutional: No fever, No chills, No sweats Eyes: + discharge (Watering eyes) ENT: No hearing loss Respiratory: No cough, No sputum, No shortness of breath, No dyspnea on exertion, No dyspnea at rest Cardiac: No chest pain, No orthopnea, No edema, No palpitations Abdomen: + constipation, No pain, No nausea, No vomiting Musculoskeletal: No joint pain, No muscle pain Male : No dysuria, No urinary frequency All Other Systems: Reviewed and Negative Objective Vital Signs Date Time Temp Pulse Resp B/P (MAP) Pulse Ox O2 Delivery O2 Flow Rate FiO2 05/01/17 07:01 37.0 61 16 151/75 (100) 96 Room Air 05/01/17 00:30 Room Air 04/30/17 23:54 37.0 54 16 153/79 (103) 98 Room Air 04/30/17 15:58 150/77 (101) 04/30/17 15:45 Room Air 04/30/17 15:31 37.3 60 16 151/77 (101) 97 Room Air Physical Exam General Appearance: WD/WN, + mild distress Eyes: bilateral eyes normal inspection, bilateral eyes PERRL, bilateral eyes EOMI ENT: normal ENT inspection, hearing grossly normal, pharynx normal Neck: supple, no adenopathy, thyroid normal, no JVD Respiratory/Chest: chest non-tender, lungs clear, normal breath sounds, no respiratory distress, no accessory muscle use Cardiovascular: regular rate, rhythm, no edema, no gallop, no JVD, no murmur Abdomen: normal bowel sounds, non tender, soft, no organomegaly, no pulsatile mass Extremities: non-tender, normal inspection, no pedal edema, no calf tenderness Neurologic/Psychiatric: no motor/sensory deficits, alert, normal mood/affect, oriented x 3 Skin: normal color, warm/dry, no rash Lymphatic: no adenopathy Laboratory Results Last 24 Hours Test 05/01/17 08:32 White Blood Count 4.45 K/uL Red Blood Count 4.08 M/uL Hemoglobin 12.0 g/dL Hematocrit 37.3 % Mean Corpuscular Volume 91.4 fL Mean Corpuscular Hemoglobin 29.4 pg Mean Corpuscular Hemoglobin Concent 32.2 g/dl RDW Standard Deviation 55.0 fL RDW Coefficient of Variation 16.6 % Platelet Count 128 K/uL Mean Platelet Volume 10.9 fL Sodium Level 139 mmol/L Potassium Level 4.0 mmol/L Chloride Level 109 mmol/L Carbon Dioxide Level 21 mmol/L Anion Gap 9.0 mmol/L Blood Urea Nitrogen 17 mg/dl Creatinine 0.94 mg/dl Est Creatinine Clear Calc Drug Dose 71.9 ml/min Estimated GFR () 92.9 Estimated GFR (Non- 80.1 BUN/Creatinine Ratio 18.2 Random Glucose 82 mg/dl Calcium Level 8.2 mg/dl Total Bilirubin 0.7 mg/dl Aspartate Amino Transf (AST/SGOT) 12 U/L Alanine Aminotransferase (ALT/SGPT) 21 U/L Alkaline Phosphatase 62 U/L Total Protein 6.5 gm/dl Albumin 3.4 gm/dl Globulin 3.1 gm/dl Albumin/Globulin Ratio 1.1 Assessment and Plan Assessment and Plan: Assessment This is a 71 year old man with a history of GIST s/p resections (in 2014 and September of 2016) who presents with increasing abdominal pain consistent with small bowel obstruction which has been confirmed by abdominal CT. Plan Small bowel obstruction -Secondary to areas of stricture following bowel resection for GIST -NG tube has been removed. -Remain NPO except for ice chips as per surgery's recommendation. NPO until patient moves his bowels. Remain on NS drip at 100mL/hr while NPO -Patient has been encouraged to increase his movement (walk the halls) to help with moving his bowels. -Tylenol PRN for pain. 1 g IV tylenol given this morning after removal of NG tube. Anxiety/Bipolar -Will return to normal home medications (wellbutrin ER and lamictal) now that NG tube is removed. Hx of GIST -On Sunitinib at home. Will continue to give this through NG tube at home dose. DVT prophylaxis -Lovenox injection and SCD in place. Continued [facility] stay due to: inadequate po fluid intake Discharge planning: home
[2017-05-01 15:19] VITALS: BP 135/77; PULSE 60; TEMP 36.8; O2SAT 99
[2017-05-01] MEDS ORDERED: NURSING VERBAL MED ORDER ONE (19:15)
[2017-05-01] MEDS: RANITIDINE IV 50 MG in DEXTROSE 5% 100ML 100 ML IV SCH (20:49)
[2017-05-01] MEDS: PANTOprazole INJ 40 MG in SYRINGE 0 ML IV SCH (20:49)
[2017-05-01] MEDS: SUNITINIB MALATE 37.5 MG PO SCH (20:52)
[2017-05-01] MEDS: ENOXAPARIN 40 MG/0.4 ML SYR SQ SCH (20:53)
[2017-05-01 23:10] VITALS: BP 149/84; PULSE 66; TEMP 36.6; O2SAT 90
[2017-05-02] MEDS: NSS + 20MEQ KCL 1000ML 1,000 ML IV SCH (04:22)
[2017-05-02 07:26] VITALS: BP 145/78; PULSE 56; TEMP 36.8; O2SAT 97
--- NOTE | 2017-05-02 09:09 | Surgery Progress Note ---
Surgery Progress Note Date of Service May 02, 2017. Subjective Patient examined at bedside this morning. Afebrile, vitals stable overnight on room air, no acute events. Feels much better with NGT out. Denies pain. Tolerated clear liquids for dinner last night - has not yet eaten breakfast tray ; denies N/V. Ambulating and voiding without difficulty. +Flatus, had a BM yesterday. Objective Vital Signs: Date Time Temp Pulse Resp B/P (MAP) Pulse Ox O2 Delivery O2 Flow Rate FiO2 05/02/17 07:26 36.8 56 15 145/78 (100) 97 Room Air 05/01/17 23:10 36.6 66 18 149/84 (105) 90 Room Air 05/01/17 23:10 Room Air 05/01/17 15:30 Room Air 05/01/17 15:19 36.8 60 16 135/77 (96) 99 Room Air General Appearance: WD/WN, no apparent distress Head: normocephalic, atraumatic Neck: supple Respiratory/Chest: lungs clear, normal breath sounds Cardiovascular: regular rate, rhythm Abdomen: normal bowel sounds, non tender, non distended, soft Extremities: normal range of motion, no pedal edema Laboratory Results: Results Past 24 Hours Test 05/02/17 04:44 Range/Units Assessment & Plan Assessment: Alfredito Breen is a 71 year old man with history of bowel resection for GIST tumor who was admitted with a partial small bowel obstruction. Vitals stable and normal, NGT removed yesterday. Now tolerating clear liquids Denies return of abdominal pain, N/V. Passing flatus, had a BM yesterday. Ambulating and voiding without difficulty. -Keep clear liquids for breakfast - may advance later today if still having flatus and no N/V -Decrease IVF to 80ml/hr now that patient is tolerating clear liquids; may discontinue when advanced to regular diet -Encouraged ambulation -Patient understands and agrees with the above plan -Possible ready for discharge this weekend if tolerating regular diet and moving bowels -Discussed with primary team
[2017-05-02 10:16] LABS: HEMATOCRIT 33.1 % (42-52); MEAN CELL VOLUME 91.2 fL (80-100); MEAN CORPUSCULAR HEMOGLOBIN 30.6 pg (25-34); MEAN CORPUSCULAR HGB CONC 33.5 g/dl (32-36); PLATELET COUNT 121 K/uL (130-400); RED BLOOD COUNT 3.63 M/uL (4.7-6.1); WHITE BLOOD COUNT 3.29 K/uL (4.8-10.8)
[2017-05-02 10:42] LABS: CREATININE 1.2 mg/dl (0.60-1.40)
--- NOTE | 2017-05-02 12:26 | Family Medicine Progress Note ---
Progress Note Date of Service May 02, 2017. Subjective Pt evaluation today including: conversation w/ patient, physical exam, chart review, conversation w/ library consultant, review of inpatient medication list Pain: minimal PO Intake: clear liquid Voiding: no voiding problems Able to tolerate liquid diet 1 bowel movement yesterday, moderate no nausea, vomiting, or ab pain Constitutional: No fever, No chills Respiratory: No cough, No shortness of breath Cardiovascular: No chest pain, No edema, No palpitations Abdomen: No pain, No nausea, No vomiting, No diarrhea Male : No dysuria Medications Current Inpatient Medications Medications (Trade) Dose Ordered Sig/Sapna Route Start Time Stop Time Status Last Admin Dose Admin Ioversol (Optiray 320) 100 ml UD PRN IV 04/29/17 00:30 05/03/17 00:29 Ondansetron HCl (Zofran Inj) 4 mg Q6H PRN IV 04/29/17 03:30 05/29/17 03:29 Bupropion HCl (Wellbutrin-Xl Tab) 150 mg QAM PO 04/29/17 09:00 05/29/17 08:59 Future Hold Enoxaparin Sodium (Lovenox Inj) 40 mg HS SQ 04/29/17 21:00 05/29/17 20:59 05/01/17 20:53 40 MG Lorazepam 0.5 mg/ Syringe 1 ml @ 1 mls/min Q6H PRN IV 04/29/17 04:45 05/29/17 04:44 Acetaminophen 650 mg/Empty Bag 65 ml @ 260 mls/hr Q6H PRN IV 04/29/17 07:30 05/29/17 07:29 05/01/17 09:24 260 MLS/HR Lamotrigine (Lamictal Tab) 200 mg BID NG 04/29/17 10:00 05/29/17 09:59 05/02/17 09:14 200 MG Bupropion HCl (Wellbutrin Tab) 100 mg BID NG 04/29/17 10:00 05/29/17 09:59 05/02/17 09:15 100 MG Hydralazine HCl (HydrALAZINE INJ) 10 mg Q4H PRN IV. 04/29/17 16:30 05/29/17 16:29 04/29/17 16:41 10 MG Acetaminophen/ Hydrocodone Bitart ([place] 5/325 Tab) 1 tab Q4H PRN PO 04/29/17 18:00 05/13/17 17:59 04/30/17 20:19 1 TAB Menthol (Nice Max) 1 max PRN PRN PO 04/30/17 13:15 05/30/17 13:14 04/30/17 13:40 1 MAX Objective Vital Signs Date Time Temp Pulse Resp B/P (MAP) Pulse Ox O2 Delivery O2 Flow Rate FiO2 05/02/17 07:26 36.8 56 15 145/78 (100) 97 Room Air 05/02/17 07:15 Room Air 05/01/17 23:10 36.6 66 18 149/84 (105) 90 Room Air 05/01/17 23:10 Room Air 05/01/17 15:30 Room Air 05/01/17 15:19 36.8 60 16 135/77 (96) 99 Room Air Physical Exam General Appearance: WD/WN, no apparent distress Respiratory/Chest: lungs clear, no respiratory distress, no accessory muscle use Cardiovascular: regular rate, rhythm, no edema, no JVD, no murmur Abdomen: normal bowel sounds, soft, + tenderness Extremities: no pedal edema, no calf tenderness, normal capillary refill Neurologic/Psychiatric: alert, normal mood/affect, oriented x 3 Laboratory Results Results Past 24 Hours Test 05/02/17 09:45 Range/Units White Blood Count 3.29 4.8-10.8 K/uL Red Blood Count 3.63 4.7-6.1 M/uL Hemoglobin 11.1 14.0-18.0 g/dL Hematocrit 33.1 42-52 % Mean Corpuscular Volume 91.2 80-100 fL Mean Corpuscular Hemoglobin 30.6 25-34 pg Mean Corpuscular Hemoglobin Concent 33.5 32-36 g/dl RDW Standard Deviation 55.4 36.4-46.3 fL RDW Coefficient of Variation 16.5 11.5-14.5 % Platelet Count 121 130-400 K/uL Mean Platelet Volume 11.0 7.4-10.4 fL Creatinine 1.20 0.60-1.40 mg/dl Est Creatinine Clear Calc Drug Dose 56.3 ml/min Estimated GFR () 69.1 Estimated GFR (Non- 59.6 Assessment and Plan 71M hospital day 3, here for partial SBO, h/o GIST, abdominal surgeries (December 2014 and Sep 2016) and bipolar. Improving. Partial SBO - likely due to strictures from his 2 abdominal 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 - patient with BM, trial of regular diet at lunch - encourage ambulation - patient received enema yesterday evening and had 1 BM - stopped IVF Bipolar ds - on Wellbutrin and Lamictal at home - meds had to be crushed while NPO - has resumed PO History of GIST - on Sunitinib at home - pt decided to hold while NPO despite understanding it would be allowed with water. - has resumed PO GERD - takes Zantac and Protonix PO at home - resume PO today DVT prophylaxis - Lovenox HS; taken at home to manage painful priapism - SCD Code Status - Level I Full Code Disposition - Med/Surg Continued [facility] stay due to: home environment unsafe for pt
[2017-05-02 15:16] VITALS: BP 111/67; PULSE 43; TEMP 36.8; O2SAT 99
--- NOTE | 2017-05-02 19:03 | Discharge Instructions ---
Discharge Instructions Date of Service May 02, 2017. Admission Reason for Admission: Partial Small Bowel Obstruction Discharge Discharge Diagnosis / Problem: Small Bowel Obstruction Discharge Goals Goal(s): Decrease discomfort, Improve function, Therapeutic intervention, Prevent Disease Progression Activity Recommendations Activity Limitations: per Instructions/Follow-up section . Instructions / Follow-Up Instructions / Follow-Up Please follow up with your primary care physician early next week Please remember to eat small meals at a time If you have any worsening abdominal pain, vomiting or fever greater than 100.4 then please come back to the emergency department. Current Hospital Diet Patient's current hospital diet: Regular Diet Discharge Diet Recommended Diet: Regular Diet Pending Studies Studies pending at discharge: no Medical Emergencies . Who to Call and When: Medical Emergencies: If at any time you feel your situation is an emergency, please call 911 immediately. . Non-Emergent Contact Non-Emergency issues call your: Primary Care Provider . . "Provider Documentation" section prepared by Shant Miller. . VTE Core Measure Inpt VTE Proph given/why not?: Enoxaparin (Lovenox)SQ
--- NOTE | 2017-05-02 19:12 | Discharge Summary ---
Discharge Summary Date of Service May 02, 2017. (Shant Miller MD) Discharge Summary Admission Date: Apr 29, 2017 at 03:23 Discharge Date: May 02, 2017 Discharge Disposition: Home Principal Diagnosis: Small bowel obstruction (Shant Miller MD) Medication Reconciliation Continued Medications: Acetaminophen (Tylenol) 500 Mg Tab 1000 MG PO DIRECTED PRN for Pain or Fever, TAB Bupropion Hcl (Wellbutrin Xl) 150 Mg Tab 150 MG PO QAM Cholecalciferol (Vitamin D3) 1,000 Unit Tab 1000 UNITS PO DAILY for 90 Days, TAB 3 Refills Cyanocobalamin (Vitamin B-12) 500 Mcg Tab 500 MCG PO DAILY, TAB Enoxaparin (Lovenox) 40 Mg/0.4 Ml Inj 40 MG SQ HS, SYR Epinephrine (Epipen) 0.3 Mg/0.3 Ml Inj 0.3 MG IM UD PRN for ALLERGIC REACTION Folic Acid (Folvite) 400 Mcg Tab 400 MCG PO DAILY, TAB Lamotrigine (Lamictal) 200 Mg Tab 200 MG PO BID, TAB Lorazepam (Ativan) 0.5 Mg Tab 0.5 MG PO Q6H PRN for Anxiety/Agitation, TAB Ondansetron Hcl (Zofran) 8 Mg Tab 8 MG PO Q6H PRN for Nausea, TAB Oxycodone Ir (Roxicodone Ir) 5 Mg Tab 5-10 MG PO Q6H PRN for Pain, TAB Pantoprazole (Protonix) 40 Mg Tab 40 MG PO QAM, #30 TAB Ranitidine Hcl (Zantac) 300 Mg Tab 300 MG PO HS Sunitinib Malate (Sutent) 37.5 Mg Cap 37.5 MG PO QPM, #28 Tramadol (Ultram) 50 Mg Tab 50 MG PO Q8H PRN for Pain, TAB Discharge Exam See note from day of discharge for comments, review of systems and physical exam (Shant Miller MD) tolerated regular diet well x 2 adamant about going home Review of Systems: Constitutional: No fever Respiratory: No shortness of breath Cardiovascular: No chest pain Abdomen: No pain, No nausea, No vomiting Physical Exam: General Appearance: no apparent distress Respiratory/Chest: lungs clear, no respiratory distress Cardiovascular: regular rate, rhythm Abdomen / GI: normal bowel sounds, non tender, soft Neurologic/Psychiatric: alert, oriented x 3 Skin: warm/dry (Anjana Branch M.D.) Hospital Course 71M in hospital for 4 days for partial SBO Partial SBO - likely due to strictures from his 2 abdominal 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 (Shant Miller MD) Resident Physician Supervision Note: I was present with Dr. Miller in bedside. I verified the padilla history and physical, reviewed labs and image studies, discussed the case with the resident and agree with the findings and care plan. Instructed to come back to ED if symptoms recur. Total Time Spent: Greater than 30 minutes (35) (Anjana Branch M.D.) Discharge Instructions Please refer to the electronic Patient Visit Report (Discharge Instructions) for additional information. (Shant Miller MD) Additional Copies To Balaji Mejia M.D.
[2017-05-02 19:20] VITALS: BP 111/67; PULSE 56; TEMP 36.8; O2SAT 99
[2017-05-02] MEDS ORDERED: RANITIDINE HCL 150 MG TAB PO SCH (21:00)
[2017-05-03] MEDS ORDERED: PANTOprazole SOD 40 MG TAB PO SCH (09:00)
== END 2017-05-02 19:50 | disposition home or self-care (01) | DRG 389 ==
LOC: C.EDB 23:52 → C.MSW 04-29 03:23 → ENRESERV 04-29 03:48
PROVIDERS: ADMIT Internal Medicine; ATTEND Family Medicine
DX: K56.5 Intestinal adhesions [bands] with obstruction (postinfection) (principal); C16.9 Malignant neoplasm of stomach, unspecified; K21.9 Gastro-esophageal reflux disease without esophagitis; Z88.2 Allergy status to sulfonamides; F41.9 Anxiety disorder, unspecified; Z85.00 Personal history of malignant neoplasm of unspecified digestive organ; F31.9 Bipolar disorder, unspecified

== ENCOUNTER → 2017-08-11 | Outpatient (CLI) | payer BC ==
[~2017-08-11] MED LIST changes: -ACET-1256 PO; +OPTIRAY 320 IV PRN; +OXYC1TAB3 PO; -PSYL58.636 PO; -RXC5 PO; +TYLOTC500 PO
--- NOTE | 2017-08-11 14:14 | DIAGNOSTIC IMAGING REPORT ---
CT OF THE CHEST WITH IV CONTRAST CLINICAL HISTORY: LUNG CA, GIST COMPARISON STUDY: 08/12/2016 TECHNIQUE: Following the IV administration of 93 mL of Optiray-320, CT of the thorax was performed from the thoracic inlet to the lung bases. Images are reviewed in the axial, sagittal, and coronal planes. IV contrast was administered without complication. A dose lowering technique was utilized adhering to the principles of ALARA. CT DOSE: FINDINGS: Thyroid: Imaged portions of the thyroid gland are normal in appearance. Thoracic aorta: The thoracic aorta is normal in course and caliber, noting standard 3-vessel arch anatomy. No aneurysm or dissection is seen. Pulmonary vasculature: The pulmonary trunk is normal in caliber. There are no central filling defects identified to suggest pulmonary embolus. Note that this examination was not protocoled for the evaluation of pulmonary emboli. HEART: The heart is normal in size and configuration, without pericardial effusion. Lungs and pleural spaces: No pleural effusions are visualized. There is a 23 x 9 mm irregular left upper lobe opacity, similar in appearance to the preceding study. Mediastinum: Mediastinal lymph nodes remain the upper limits of normal in size Sonia: There is a mildly enlarged 13 mm left hilar lymph node Axilla: There is no evidence of pathologic axillary lymphadenopathy Upper abdomen: Partially visualized upper abdominal viscera is within normal limits. Skeletal structures: There are no lytic or blastic osseous lesions. IMPRESSION: 1. Stable indeterminate 23 x 9 mm left upper lobe opacity 2. Mildly enlarged 13 mm left hilar lymph node Electronically signed by: Job Redding M.D. 08/11/2017 2:12 PM Dictated Date/Time: 08/11/2017 2:02 PM
--- NOTE | 2017-08-11 14:23 | DIAGNOSTIC IMAGING REPORT ---
ABDOMEN AND PELVIS CT WITH IV AND ORAL CONTRAST CT DOSE: 607.73 mGy.cm HISTORY: LUNG CA, GI stromal tumor. TECHNIQUE: Multiaxial CT images of the abdomen and pelvis were performed following the use of intravenous and oral contrast. A dose lowering technique was utilized adhering to the principles of ALARA. COMPARISON STUDY: Abdomen and pelvis CT 04/29/2017. FINDINGS: Mild dependent changes seen at the lung bases. No pneumoperitoneum. No pneumatosis. Bilateral L5 spondylolysis. Grade I anterolisthesis of L5 on S1. No suspicious lytic or blastic osseous lesions. There is a new 2.2 cm heterogeneous nodule anterior to the bladder. A few additional subcentimeter soft tissue nodules anterior to the right-sided of the bladder best in image 328. There are 2 adjacent cystic nodules within the mid the pelvis with thickened irregular carrillo. These measure 3.0 and 5.2 cm. These nodules result in mild mass effect on the bladder and are consistent with metastatic disease. Colonic diverticulosis. Evidence for prior bowel anastomosis. No bowel wall thickening or obstruction. Normal appendix. Normal gallbladder. No hepatic or splenic masses. The adrenal glands, pancreas, and right kidney are unremarkable. Small left peripelvic renal cysts, unchanged. IMPRESSION: 1. Interval development of a few heterogeneous and cystic masses within the deep pelvis . Dominant lesion measures 5.2 cm. These are consistent with metastatic disease likely a result of the patient's GI stromal tumor. 2. No bowel wall thickening or obstruction. Electronically signed by: Michael Prieto M.D. 08/11/2017 2:21 PM Dictated Date/Time: 08/11/2017 2:11 PM
== END | disposition home or self-care (01) ==
LOC: C.CTS 12:40
PROVIDERS: ATTEND Internal Medicine Hematology & Oncology
DX: C34.12 Malignant neoplasm of upper lobe, left bronchus or lung (principal); C49.A5 Gastrointestinal stromal tumor of rectum

== ENCOUNTER → 2017-09-01 | Outpatient (CLI) | payer BC ==
[~2017-09-01] MED LIST changes: -OPTIRAY 320 IV PRN
--- NOTE | 2017-09-01 15:15 | DIAGNOSTIC IMAGING REPORT ---
PET/CT CLINICAL HISTORY: Non-small cell lung cancer. GI stromal tumor. TECHNIQUE: A PET/CT was performed from the skull base through the upper thighs following intravenous injection of 14.73 mCi of F 18 FDG IV. The injection was performed at 8:31 AM on September 01, 2017 and imaging began at 9:30 AM on September 01, 2017. Unenhanced CT was performed for attenuation correction purposes and anatomic localization. COMPARISON STUDY: PET/CT December 04, [address] of the chest, abdomen and pelvis August 11, 2017. FINDINGS: Head and neck: No abnormal FDG uptake is identified within the neck. There is no cervical lymphadenopathy. Chest: Note is made of mild multifocal left hilar FDG uptake. Specifically, note is made of mild uptake within a mildly enlarged left infrahilar lymph node which was shown on chest CT of August 11, 2017. This node measures approximately 1.3 cm and has an SUV max of 3.4. Note is made of a 1.4 x 0.8 cm left upper lobe nodular opacity with adjacent ground glass opacity which is similar to prior chest CT dating back to August 12, 2016. This is minimal FDG uptake with an SUV max of 1.2. Abdomen and Pelvis: No upper abdominal lymphadenopathy is present. There is no abnormal FDG uptake within the abdomen. Bowel anastomoses are noted. There is no bowel obstruction. Note is made of a predominantly cystic central pelvic mass that measures 5.5 x 5 cm. This has peripheral solid component with mild FDG uptake with an SUV max of 3.3. This has slightly increased since CT of August 11, 2017. An adjacent 3.1 cm central pelvic solid mass has moderate FDG uptake with an SUV max of 6. An inferior anterior pelvic mass measuring 3.2 x 2.6 cm has moderate FDG uptake within SUV max of 5.3. This has slightly increased in size since CT of August 11, 2017 when measured 2.6 x 2.3 cm. Musculoskeletal: No suspicious skeletal uptake is identified. IMPRESSION: 1. Moderate FDG uptake within several cystic and solid pelvic masses. These masses have slightly increased in size since CT of August 11, 2017 and are consistent with metastatic disease. Metastases from GI stromal tumor are favored. 2. Mild multifocal left hilar donald FDG uptake including the enlarged left hilar lymph node shown on chest CT of August 11, 2017. This donald uptake is nonspecific but worrisome for donald spread of disease. 3. Minimal FDG uptake within the 1.4 x 0.8 cm left upper lobe nodule. This minimal FDG uptake could reflect posttherapy change or recurrent tumor. Electronically signed by: Nadir Doyle M.D. 09/01/2017 3:14 PM Dictated Date/Time: 09/01/2017 10:12 AM
== END | disposition home or self-care (01) ==
LOC: C.PET 08:16
PROVIDERS: ATTEND Internal Medicine Hematology & Oncology
DX: C34.12 Malignant neoplasm of upper lobe, left bronchus or lung (principal); C49.A5 Gastrointestinal stromal tumor of rectum; R19.00 Intra-abdominal and pelvic swelling, mass and lump, unspecified site

== ENCOUNTER 2017-09-26 07:16 | Day surgery (SDC) | payer BC ==
[~2017-09-26] VITALS: Ht 182.9 cm; Wt 75.4 kg
[~2017-09-26 07:16] MED LIST changes: -ALUM-30; -ALUMCHW2 PO; -DEXAMETHASONE SOD INJ 4 MG/ML VIAL ONE; -DLCS PR; -DOCU-94 PO; -EpHEDrine SULFATE 50MG/5ML SYR ONE; -FENT25DI10 TD; -FENTANYL CITRATE INJ 50 MCG/1 ML 2 ML VIAL ONE; -GLYCOPYRROLATE INJ 0.2 MG/ML VIAL ONE; +LACTATED RINGER'S 1000ML 1,000 ML IV SCH; -LARYING-O-JET KIT (LTA) ONE; -LIDOCAINE HCL 2% 2 ML VIAL (20MG/ML) ONE; -METH10TA2 PO; -METH5TAB2 PO; -MRLP17 PO; -MRN25 PO; -NEOSTIGMINE METHYLSULFATE 5 MG/5 ML SYR ONE; -ONDA-170 PO; +ONDA8TAB6 PO; -ONDANSETRON INJ 2 MG/ML 2 ML VIAL ONE; -OXYC-90 PO; +OXYC1TAB3 PO; -OXYSR10 PO; -PROPOFOL IV EMULSION 10 MG/ML 20 ML VIAL IV ONE; -RANI300C PO; -ROCURONIUM BROMIDE 10 MG/ML 5 ML VIAL IV ONE; -RXC5 PO; -SENN-61 PO; -VGR50 PO; -[UNRECOGNIZED DRUG - CODE] EXT
[2017-09-26] MEDS ORDERED: VGR50 PO (08:23)
[2017-09-26] MEDS ORDERED: ALUMCHW2 PO (08:23)
[2017-09-26 08:25] VITALS: BMI 22.0
--- NOTE | 2017-09-26 09:08 | PAT Medication Instructions ---
Service Date Sep 26, 2017. Current Home Medication List Acetaminophen (Tylenol), 1,000 MG PO DIRECTED PRN for Pain or Fever Aluminum Hydroxide-Mag Trisil (Gaviscon), 1 TAB PO PRN Bupropion Hcl (Wellbutrin Xl), 150 MG PO QAM Cholecalciferol (Vitamin D3), 1,000 UNITS PO QAM Cyanocobalamin (Vitamin B-12), 500 MCG PO QAM Epinephrine (Epipen), 0.3 MG IM UD PRN for ALLERGIC REACTION Folic Acid (Folvite), 400 MCG PO QAM Lamotrigine (Lamictal), 200 MG PO BID Lorazepam (Ativan), 0.5 MG PO Q6H PRN for Anxiety/Agitation Ondansetron Hcl (Zofran), 8 MG PO Q6H PRN for Nausea Oxycodone Ir (Roxicodone Ir), 5-10 MG PO Q6H PRN for Pain Pantoprazole (Protonix), 40 MG PO QAM Ranitidine Hcl (Zantac), 300 MG PO HS Sildenafil Citrate (Viagra), 50 MG PO PRN PRN for UD Sunitinib Malate (Sutent), 37.5 MG PO QPM Tramadol (Ultram), 50 MG PO Q8H PRN for Pain Medication Instructions For Your Scheduled Surgery - Continue as directed: Epinephrine (Epipen), 0.3 MG IM UD PRN for ALLERGIC REACTION - Check with surgeon and prescribing physician for instructions: Sunitinib Malate (Sutent), 37.5 MG PO QPM - Hold the following medications the morning of surgery: Aluminum Hydroxide-Mag Trisil (Gaviscon), 1 TAB PO PRN Folic Acid (Folvite), 400 MCG PO QAM Sildenafil Citrate (Viagra), 50 MG PO PRN PRN for UD Cholecalciferol (Vitamin D3), 1,000 UNITS PO QAM Cyanocobalamin (Vitamin B-12), 500 MCG PO QAM - Take the following medications the morning of surgery with a sip of water: Tramadol (Ultram), 50 MG PO Q8H PRN for Pain (okay to take up to 4 hours prior to surgery if needed) Acetaminophen (Tylenol), 1,000 MG PO DIRECTED PRN for Pain or Fever(okay to take up to 4 hours prior to surgery if needed) Oxycodone Ir (Roxicodone Ir), 5-10 MG PO Q6H PRN for Pain(okay to take up to 4 hours prior to surgery if needed) Pantoprazole (Protonix), 40 MG PO QAM Lorazepam (Ativan), 0.5 MG PO Q6H PRN for Anxiety/Agitation (if needed) Ondansetron Hcl (Zofran), 8 MG PO Q6H PRN for Nausea (if needed) Lamotrigine (Lamictal), 200 MG PO BID Bupropion Hcl (Wellbutrin Xl), 150 MG PO QAM - Take the following medications as scheduled the night before surgery: Tramadol (Ultram), 50 MG PO Q8H PRN for Pain (if needed) Sildenafil Citrate (Viagra), 50 MG PO PRN PRN for UD Oxycodone Ir (Roxicodone Ir), 5-10 MG PO Q6H PRN for Pain (if needed) Ranitidine Hcl (Zantac), 300 MG PO HS Lorazepam (Ativan), 0.5 MG PO Q6H PRN for Anxiety/Agitation (if needed) Ondansetron Hcl (Zofran), 8 MG PO Q6H PRN for Nausea (if needed) Lamotrigine (Lamictal), 200 MG PO BID. Aluminum Hydroxide-Mag Trisil (Gaviscon), 1 TAB PO PRN (if needed) If you have any questions please call us at [phone] or [phone] or [phone]
[2017-09-26 10:34] LABS: BASO % 0.3 %; BASO ABS # 0.01 K/uL (0-0.2); EOS % 1.3 %; EOS ABS # 0.05 K/uL (0-0.5); HEMATOCRIT 36.1 % (42-52); HEMOGLOBIN 11.7 g/dL (14.0-18.0); LYMPH % 42.6 %; LYMPH ABS # 1.68 K/uL (1.2-3.4); MEAN CELL VOLUME 96.3 fL (80-100); MEAN CORPUSCULAR HEMOGLOBIN 31.2 pg (25-34); MEAN CORPUSCULAR HGB CONC 32.4 g/dl (32-36); MEAN PLATELET VOLUME 10.7 fL (7.4-10.4); MONO % 6.9 %; MONO ABS # 0.27 K/uL (0.11-0.59); NEUT % 48.9 %; NEUT ABS # 1.93 K/uL (1.4-6.5); PLATELET COUNT 152 K/uL (130-400); WHITE BLOOD COUNT 3.94 K/uL (4.8-10.8)
[2017-09-26 10:44] LABS: INR 0.9 (0.9-1.1); PTT PATIENT 27.1 SECONDS (21.0-31.0)
[2017-09-26] MEDS ORDERED: INFLUENZA VIRUS QUAD VACCINE 0.5 ML SYR IM. ONE (16:15)
[2017-09-26] MEDS ORDERED: INFLUENZA ADMINISTRATION CHARGE ONE (16:15)
--- NOTE | 2017-09-30 06:28 | History and Physical ---
History & Physical Date of Service Sep 30, 2017. History & Physical 72-year-old male sent to provider Machelle Laura of the Pulmonary Division at the request of his oncologist following abnormal PET-CT scan. PMHx includes: History of prostate cancer s/p radiation 2008, or urethral/bladder papillary cancer status post TURBT 2014, GI stromal tumor diagnosed 12/2014 ( s/p excision & Gleevac & Sutent), left-sided adenocarcinoma status post stereotactic radiation 2015, Barretts esophagus, atrial fibrillation, bipolar I , PLMD/RLS, chronic lovenox. He is a former smoker 10 pack-year quit 1975 with second hand exposure through his father. Patient denies any occupational exposures. Patient reports family history of lymphocytic leukemia, myeloma, and prostate cancer in first-degree relatives. Patient initially seen by Dr. Leal 11/[address] of the A/P 03/2015 noted ROBERTO nodules. CTA 10/2015 noted 11mm spiculated ROBERTO nodule. He underwent steriotactic radiation in [place] 12/2015. Post procedure he developed pneumonitis/pneumonia requiring treatment with notable improvement. 08/11/2017 CT of the chest with IV contrast described 23 x 9 millimeter regular left upper lobe opacity similar in appearance to preceding study. There was mild enlargement of the 13 millimeter left hilar lymph node. PET-CT 09/01/2017. Multi focal left hilar FDG uptake. Node measures 1.3 centimeters with SUV max of 3.4. Also noted is the 1.4 x 0.8 centimeter left upper lobe nodular opacity with adjacent ground-glass opacity similar to previous with minimal FDG uptake (SUV max 1.2. There is moderate FDG uptake in several cystic and solid pelvic masses which have slightly increased in size since CT 07/2017-consistent with metastatic disease. Active Problems 1. Adenocarcinoma of lung 2. Allergy to bee 3. Arthritis 4. Atrial fibrillation 5. Bhatti's esophagus 6. Bipolar I disorder, single manic episode 7. Chronic low back pain 8. Chronic obstructive pulmonary disease (FEV1: 105% on 11/30/15) 9. Decreased hearing 10. Depression 11. Erectile dysfunction 12. Gastroesophageal reflux disease 13. GIST (gastrointestinal stromal tumor), malignant 14. Gynecomastia, male 15. Hiatal hernia 16. Idiopathic peripheral autonomic neuropathy 17. Incomplete bladder emptying 18. Incontinence 19. Insomnia 20. 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 Onychomycosis of toenail 23. Osteopenia 24. Periodic limb movement disorder 25. Peripheral neuropathy 26. 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 Prostate cancer 29. Tremor 30. Tubular adenoma of colon Surgical History 1. Abdominal Surgery 2. Complete Colonoscopy 3. Cystoscopy With Insertion Of Ureteral Stent Bilateral 4. Exploratory Laparotomy 5. Inguinal Hernia Repair 6. Lung Surgery 7. Partial Colectomy 8. Proctosigmoidoscopy (Rigid - Diagnostic) 9. Prostate Surgery 10. Therapeutic Cystoscopy Family History 1. Chronic Lymphocytic Leukemia 2. Family history of Cardiac Failure 3. Family history of Chronic Obstructive Pulmonary Disease 4. Family history of Peripheral Vascular Disease Social History Denied: History of Alcohol Denied: History of Drug use Former smoker Marital History - Currently Never uses sunscreen Retired From Work Current Meds 1. EpiPen 2-Rickie 0.3 MG/0.3ML Injection Solution Auto-injector; INJECT 0.3ML 2. LaMICtal 200 MG Oral Tablet; TAKE 2 TABLETS DAILY 3. Wellbutrin XL 150 MG Oral Tablet Extended Release 24 Hour; TAKE 1 TABLET DAILY 4. Pantoprazole Sodium 40 MG Oral Tablet Delayed Release; TAKE 1 TABLET DAILY 5. RaNITidine HCl - 300 MG Oral Tablet; TAKE 1 TABLET DAILY AT BEDTIME NEEDED ; 6. Sutent 37.5 MG Oral Capsule 7. Folic Acid 800 MCG Oral Tablet; TAKE 1 TABLET DAILY DIRECTED 8. Vitamin D3 1000 UNIT Oral Tablet; TAKE 1 TABLET DAILY; 9. Ondansetron HCl - 8 MG Oral Tablet; TAKE 1 TABLET 3 times daily PRN Requested for: 10. Enoxaparin Sodium 40 MG/0.4ML Subcutaneous Solution; INJECT 0.4 ML Daily 11. Viagra 100 MG Oral Tablet; TAKE 1 TABLET DAILY 1 HOUR BEFORE NEEDED 12. Ativan 0.5 MG Oral Tablet; TAKE 1 TABLET Daily PRN 13. [facility] Vitamin B-12 500 MCG Oral Tablet; TAKE 1 TABLET DAILY Allergies 1. Doxycycline Monohydrate CAPS 2. aspirin 3. Dilantin CAPS 4. NSAIDs 5. Sulfa Drugs Vitals Blood Pressure: 142 / 84, RUE, Sitting Height: 6 ft Weight: 165 lb 6 oz BMI Calculated: 22.43 BSA Calculated: 1.97 Respiration: 19 O2 Saturation: 99, RA Temperature: 97.9 F Heart Rate: 64 Physical Exam Constitutional: Well developed, well nourished male. No acute distress. Head: + facial symmetry Eyes: EOMi, PERRLA, no conjunctival injection Mouth: Mallampati []. No erythema, exudate, or post nasal gtt Neck: Trachea midline. No adenopathy or masses Respiratory: Non-labored respirations. No wheeze, rales or rhonchi. No clubbing or cyanosis. Cardiovascular: Irregular rhythm - rate controlled. +2 radial pulses. <1s capillary refill. Integumentary: no rashes, or ecchymosis MSK/Extremities: Moving and developed symmetrically. No peripheral edema. No calf tenderness. Neurologic: A&O, data recall in-tact. Appropriate affect.
[2017-09-30] MEDS ORDERED: FENTANYL CITRATE INJ 50 MCG/1 ML 2 ML VIAL IV PRN (07:45)
[2017-09-30] MEDS ORDERED: EpHEDrine SULFATE INJ 50 MG/ML AMP IV PRN (07:45)
[2017-09-30] MEDS ORDERED: ATROPINE SULFATE 0.1 MG/ML 5ML SYR IV PRN (07:45)
[2017-09-30] MEDS ORDERED: ONDANSETRON INJ 2 MG/ML 2 ML VIAL IV PRN (07:45)
[2017-09-30 07:49] VITALS: BP 169/90; PULSE 52; TEMP 36.8; O2SAT 99; Ht 182.9 cm; Wt 75.4 kg
--- NOTE | 2017-09-30 08:37 | History & Physical Bridge Note ---
H&P Re-Evaluation Bridge Note: I have examined the patient, reviewed the History & Physical and in the interval since the performance of the History & Physical I have noted the following changes of clinical significance: No changes noted
--- NOTE | 2017-09-30 10:18 | Discharge Instructions ---
Discharge Instructions Date of Service Sep 30, 2017. Admission Reason for Admission: Adenocarcinoma of Lung, Abnormal CT Scan Of Lung Discharge Discharge Diagnosis / Problem: recurrent Non-small cell lung cancer Discharge Goals Goal(s): Diagnostic testing Activity Recommendations Activity Limitations: resume your previous activity . Instructions / Follow-Up Instructions / Follow[facility] Pulmonary Division Current Hospital Diet Patient's current hospital diet: Discharge Diet Recommended Diet: Regular Diet Procedures Procedures Performed: Endobronchial Ultrasound; Navigational Bronchoscopy Pending Studies Studies pending at discharge: no Medical Emergencies . Who to Call and When: Medical Emergencies: If at any time you feel your situation is an emergency, please call 911 immediately. . Non-Emergent Contact Non-Emergency issues call your: Military Lawyer . . "Provider Documentation" section prepared by Gustavo Olivarez. . VTE Core Measure Inpt VTE Proph given/why not?: Enoxaparin (Lovenox)SQ
--- NOTE | 2017-09-30 10:20 | Bronchoscopy Procedure Note ---
Bronchoscopy Procedure Note Procedure: Flexible-Bronchoscopy, EBUS, FNA, BAL Consent: Obtained through the patient placed into the chart Pre-Procedural Dx: Lung Nodule Post-Procedural Dx: Recurrent NSCLCa Analgesia: GETA Sedation: GETA Procedure: The Olympus video bronchoscope and EBUS scope were used for this procedure Initially the flexible bronchoscope was used for evaluation of the airways. The ET tube was notably 6cm above the level of the bernadette. Trachea: Visualized portion of the trachea was anatomically within normal limits Bernadette: Anatomically within normal limits Right bronchial tree: Right mainstem bronchus: Anatomically within normal limits Right upper lobe: Anatomically within normal limits Bronchus intermedius: Anatomically within normal limits Right middle lobe: Anatomically within normal limits Right lower lobe: Anatomically within normal limits Findings: No significant findings noted Left bronchial tree: Left mainstem bronchus: Anatomically within normal limits Left upper lobe: Anatomically within normal limits Lingula: Anatomically within normal limits Left lower lobe: Anatomically within normal limits Findings: No significant findings noted EBUS/SAVANNAH: FNA [place] Stations: 7: # of passes 7 4L: # of passes 3 11L: # of passes 3 BAL: Lingula EBL: none Complications: None Follow-up: PACU
[2017-09-30 11:05] VITALS: BP 149/74; PULSE 55; TEMP 36.4; O2SAT 97
--- NOTE | 2017-09-30 11:05 | Anesthesiology Progress Note ---
Anesthesia Post Op Note Date & Time Sep 30, 2017 at 11:04 Vital Signs Pain Intensity: 0 Vital Signs Past 12 Hours Date Time Temp Pulse Resp B/P (MAP) Pulse Ox O2 Delivery O2 Flow Rate FiO2 09/30/17 10:54 36.2 09/30/17 10:51 148/79 09/30/17 10:50 54 09/30/17 10:50 53 16 100 09/30/17 10:46 149/80 09/30/17 10:45 56 16 100 09/30/17 10:45 56 16 09/30/17 10:41 152/83 09/30/17 10:40 58 14 100 09/30/17 10:40 52 14 09/30/17 10:36 146/78 09/30/17 10:35 59 17 100 09/30/17 10:35 56 17 09/30/17 10:31 141/82 09/30/17 10:30 63 22 100 09/30/17 10:30 59 22 09/30/17 10:28 143/79 09/30/17 10:20 36 61 16 150/95 100 Oxymask 7 09/30/17 07:49 36.8 52 18 169/90 (116) 99 Room Air Notes Mental Status: alert / awake / arousable, participated in evaluation Pt Amnestic to Procedure: Yes Nausea / Vomiting: adequately controlled Pain: adequately controlled Airway Patency, RR, SpO2: stable & adequate BP & HR: stable & adequate Hydration State: stable & adequate Anesthetic Complications: no major complications apparent
[2017-09-30 11:35] VITALS: BP 169/83; PULSE 58; O2SAT 97
[2017-09-30 12:05] VITALS: BP 159/85; PULSE 54; TEMP 36.4; O2SAT 96
[2017-09-30 12:35] VITALS: BP 153/78; PULSE 58; TEMP 36.5; O2SAT 98
== END 2017-09-30 12:45 | disposition home or self-care (01) ==
LOC: C.ACU 07:16
PROVIDERS: ATTEND Internal Medicine Critical Care Medicine
DX: C34.12 Malignant neoplasm of upper lobe, left bronchus or lung (principal); I48.91 Unspecified atrial fibrillation; K22.70 Barrett's esophagus without dysplasia; F31.9 Bipolar disorder, unspecified; M19.90 Unspecified osteoarthritis, unspecified site; J44.9 Chronic obstructive pulmonary disease, unspecified; K21.9 Gastro-esophageal reflux disease without esophagitis; G89.29 Other chronic pain; K44.9 Diaphragmatic hernia without obstruction or gangrene; C49.A0 Gastrointestinal stromal tumor, unspecified site; N62 Hypertrophy of breast; N52.9 Male erectile dysfunction, unspecified; G60.9 Hereditary and idiopathic neuropathy, unspecified; M85.80 Other specified disorders of bone density and structure, unspecified site; M48.061 Spinal stenosis, lumbar region without neurogenic claudication; Z79.899 Other long term (current) drug therapy

== ENCOUNTER → 2017-09-26 | Outpatient (CLI) | payer BC ==
[~2017-09-26] MED LIST changes: +ALUM-30; +ALUMCHW2 PO; +DEXAMETHASONE SOD INJ 4 MG/ML VIAL ONE; +DLCS PR; +DOCU-94 PO; +EpHEDrine SULFATE 50MG/5ML SYR ONE; +FENT25DI10 TD; +FENTANYL CITRATE INJ 50 MCG/1 ML 2 ML VIAL ONE; +GLYCOPYRROLATE INJ 0.2 MG/ML VIAL ONE; +LARYING-O-JET KIT (LTA) ONE; +LIDOCAINE HCL 2% 2 ML VIAL (20MG/ML) ONE; +METH10TA2 PO; +METH5TAB2 PO; +MRLP17 PO; +MRN25 PO; +NEOSTIGMINE METHYLSULFATE 5 MG/5 ML SYR ONE; +ONDA-170 PO; -ONDA8TAB6 PO; +ONDANSETRON INJ 2 MG/ML 2 ML VIAL ONE; +OXYC-90 PO; -OXYC1TAB3 PO; +OXYSR10 PO; +PANT1TAB3 PO; -PANT1TAB48 PO; +PROPOFOL IV EMULSION 10 MG/ML 20 ML VIAL IV ONE; +RANI300C PO; +ROCURONIUM BROMIDE 10 MG/ML 5 ML VIAL IV ONE; +RXC5 PO; +SENN-61 PO; +VGR50 PO; +[UNRECOGNIZED DRUG - CODE] EXT
--- NOTE | 2017-09-26 07:59 | DIAGNOSTIC IMAGING REPORT ---
CT SCAN OF THE CHEST WITHOUT IV CONTRAST CLINICAL HISTORY: Lung cancer follow-up. COMPARISON STUDY: Chest CT scans dated 08/11/2017 and 03/09/2009. PET/CT dated 09/01/2017. TECHNIQUE: CT scan of the thorax was performed from the thoracic inlet to the upper abdomen. Images are reviewed in the axial, sagittal, and coronal planes. IV contrast was not administered for this examination as per the referring clinician. A dose lowering technique was utilized adhering to the principles of ALARA. CT DOSE: 290.95 mGy.cm FINDINGS: Thyroid: Imaged portions of the thyroid gland are normal in size and attenuation. Thoracic aorta: There is mild atherosclerotic calcification of the thoracic aorta, which is normal in caliber and demonstrates standard 3-vessel arch anatomy. Heart: The heart is top normal in size and without pericardial effusion. There are coronary artery calcifications. Lungs and pleural spaces: Mild emphysematous change is observed. No airspace consolidation is seen typical for pneumonia and there is no pleural effusion. The trachea and central airways are clear. A fat-containing Bochdalek hernia is seen at the right lung base. There is been no significant change in the appearance of a 2.0 x 1.0 cm irregular nodular density in the left upper lobe with surrounding atelectasis/scarring as compared to 08/11/2017. No new pulmonary lesions identified. Mediastinum: There are numerous prominent mediastinal lymph nodes. AP window nodes measure up to 10 mm in short axis as seen on image #111. Pretracheal nodes measure up to 9 mm in short axis as seen on image #79. Sonia: Not well assessed without IV contrast. Axillae: There is no axillary lymphadenopathy. Upper abdomen: There is a small hiatal hernia. Partially visualized upper abdominal viscera is within normal limits. Skeletal structures: The skeletal structures are osteopenic. There are healed bilateral rib fractures. There are mild compression deformities of T5 and T11. No lytic or blastic bony lesions are seen. IMPRESSION: 1. Mild emphysema. 2. There has been no significant change in the appearance of an irregular left upper lobe nodule with surrounding scarring/atelectasis as compared to 08/11/2017 or the more recent PET scan. 3. No new pulmonary lesion is identified. 4. Prominent mediastinal lymph nodes are similar to prior studies. 5. No airspace consolidation or pleural effusion is seen. Electronically signed by: Júnior Reis M.D. 09/26/2017 7:58 AM Dictated Date/Time: 09/26/2017 7:50 AM
== END | disposition home or self-care (01) ==
LOC: C.CTS 07:15
PROVIDERS: ATTEND Physician Assistant
DX: C34.90 Malignant neoplasm of unspecified part of unspecified bronchus or lung (principal); J43.9 Emphysema, unspecified

== ENCOUNTER → 2017-10-21 | Outpatient (CLI) | payer BC ==
[~2017-10-21] MED LIST changes: +ALUMCHW2 PO; -ENOX40IN SQ; -LACTATED RINGER'S 1000ML 1,000 ML IV SCH; +VGR50 PO
[2017-10-21 14:27] LABS: BASO % 0.3 %; BASO ABS # 0.01 K/uL (0-0.2); EOS % 1.4 %; EOS ABS # 0.05 K/uL (0-0.5); HEMATOCRIT 34.9 % (42-52); HEMOGLOBIN 11.5 g/dL (14.0-18.0); LYMPH % 34.2 %; LYMPH ABS # 1.19 K/uL (1.2-3.4); MEAN CELL VOLUME 96.4 fL (80-100); MEAN CORPUSCULAR HEMOGLOBIN 31.8 pg (25-34); MEAN PLATELET VOLUME 10.9 fL (7.4-10.4); MONO % 6.9 %; MONO ABS # 0.24 K/uL (0.11-0.59); NEUT % 57.2 %; NEUT ABS # 1.99 K/uL (1.4-6.5); PLATELET COUNT 161 K/uL (130-400); RED CELL DISTRIBUTION WIDTH CV 15.3 % (11.5-14.5); RED CELL DISTRIBUTION WIDTH SD 54.3 fL (36.4-46.3); WHITE BLOOD COUNT 3.48 K/uL (4.8-10.8)
[2017-10-21 15:33] LABS: ALBUMIN 3.9 gm/dl (3.4-5.0); ALT/SGPT 26 U/L (12-78); AST/SGOT 19 U/L (15-37); BLOOD UREA NITROGEN 19 mg/dl (7-18); CALCIUM 8.8 mg/dl (8.5-10.1); CARBON DIOXIDE 26 mmol/L (21-32); CREATININE 1.27 mg/dl (0.60-1.40); GLUCOSE 103 mg/dl (70-99); POTASSIUM 4.3 mmol/L (3.5-5.1); SODIUM 140 mmol/L (136-145)
[2017-10-21 15:36] LABS: ALKALINE PHOSPHATASE 74 U/L (45-117); TOTAL PROTEIN 6.9 gm/dl (6.4-8.2)
== END | disposition home or self-care (01) ==
LOC: C.LABBC 10:11
PROVIDERS: ATTEND Internal Medicine Hematology & Oncology
DX: C34.12 Malignant neoplasm of upper lobe, left bronchus or lung (principal)

== ENCOUNTER → 2017-11-26 | Outpatient (CLI) | payer BC ==
[~2017-11-26] MED LIST changes: +OPTIRAY 320 IV PRN
--- NOTE | 2017-11-26 11:10 | DIAGNOSTIC IMAGING REPORT ---
CHEST CT WITH CONTRAST CT DOSE: 341.48 mGycm HISTORY: Follow-up study in a patient with lung cancer LUNG CA TECHNIQUE: Multiaxial CT images of the chest were performed following the intravenous administration of contrast. A dose lowering technique was utilized adhering to the principles of ALARA. COMPARISON: Chest CT 09/26/2017, PET CT 09/01/2017 FINDINGS: Thyroid is homogeneous. Unchanged 9 mm pretracheal lymph node, image 76 series 4. Stable AP window 10 mm lymph node on image 108 series 4 and lastly 8mm subcarinal lymph node on image 131 series 4 is also unchanged. No new or progressive adenopathy identified. Heart is normal in size without pericardial effusion. Thoracic aorta is normal in course and caliber without aneurysm or dissection. Imaged great vessels appear to be patent. The opacified pulmonary arterial tree is unremarkable. There is no pneumothorax or pleural effusion. Mild emphysematous changes redemonstrated. Unchanged 2.0 x 0.8 cm irregular nodule of the lingula with adjacent linear scarring/atelectasis extending to the hilum and lateral left pleural margin is seen on image 145 series 4. No new or progressively enlarged pulmonary nodules are identified. The central airways appear to be patent. No acute abnormality of the imaged upper abdomen identified. Soft tissues are unremarkable with the exception of moderate symmetric bilateral gynecomastia. The bones appear to be intact. No suspicious lytic or blastic bony lesions. Endplate degenerative changes are noted throughout the spine. IMPRESSION: 1. Unchanged irregular 2.0 cm nodule of the lingula with adjacent subsegmental linear scarring/atelectasis. 2. Unchanged mildly prominent lymph nodes about the mediastinum as above. 3. No new adenopathy or pulmonary nodules identified. Electronically signed by: Yunier Orourke M.D. 11/26/2017 11:09 AM Dictated Date/Time: 11/26/2017 11:01 AM
[2017-11-26 12:04] LABS: BASO % 0.3 %; BASO ABS # 0.01 K/uL (0-0.2); EOS % 1.6 %; EOS ABS # 0.05 K/uL (0-0.5); HEMATOCRIT 34.4 % (42-52); HEMOGLOBIN 11.4 g/dL (14.0-18.0); LYMPH % 36.3 %; LYMPH ABS # 1.13 K/uL (1.2-3.4); MEAN CELL VOLUME 95.3 fL (80-100); MEAN CORPUSCULAR HEMOGLOBIN 31.6 pg (25-34); MEAN CORPUSCULAR HGB CONC 33.1 g/dl (32-36); MEAN PLATELET VOLUME 10.7 fL (7.4-10.4); MONO % 10.3 %; MONO ABS # 0.32 K/uL (0.11-0.59); NEUT % 51.5 %; PLATELET COUNT 130 K/uL (130-400); RED CELL DISTRIBUTION WIDTH SD 52.6 fL (36.4-46.3); WHITE BLOOD COUNT 3.11 K/uL (4.8-10.8)
[2017-11-26 12:27] LABS: ALBUMIN 3.7 gm/dl (3.4-5.0); ALT/SGPT 26 U/L (12-78); BLOOD UREA NITROGEN 24 mg/dl (7-18); CALCIUM 8.4 mg/dl (8.5-10.1); CARBON DIOXIDE 28 mmol/L (21-32); CREATININE 1.21 mg/dl (0.60-1.40); GLUCOSE 83 mg/dl (70-99); POTASSIUM 3.7 mmol/L (3.5-5.1); SODIUM 140 mmol/L (136-145)
[2017-11-26 12:30] LABS: ALKALINE PHOSPHATASE 90 U/L (45-117); AST/SGOT 23 U/L (15-37); TOTAL PROTEIN 6.5 gm/dl (6.4-8.2)
== END | disposition home or self-care (01) ==
LOC: C.CTS 10:11
PROVIDERS: ATTEND Internal Medicine Hematology & Oncology
DX: C34.12 Malignant neoplasm of upper lobe, left bronchus or lung (principal); J98.11 Atelectasis

== ENCOUNTER → 2017-11-29 | Outpatient (CLI) | payer BC ==
[~2017-11-29] MED LIST changes: -OPTIRAY 320 IV PRN
--- NOTE | 2017-11-29 10:22 | DIAGNOSTIC IMAGING REPORT ---
CHEST 2 VIEWS ROUTINE CLINICAL HISTORY: 72 years-old Male presenting with R05 [id number]. TECHNIQUE: PA and lateral views of the chest were obtained. COMPARISON: Chest CT from 11/26/2017 and chest x-ray from 12/20/2016. FINDINGS: Cardiomediastinal silhouette normal. Unchanged bandlike opacity in the periphery of the left midlung. No new focal opacity. No pleural effusion or pneumothorax. Osseous structures normal. Upper abdomen normal. IMPRESSION: 1. No acute cardiopulmonary disease. Electronically signed by: Balaji Aguilar M.D. 11/29/2017 10:21 AM Dictated Date/Time: 11/29/2017 10:20 AM
== END | disposition home or self-care (01) ==
LOC: C.RAD1850 10:03
PROVIDERS: ATTEND Internal Medicine
DX: R05 Cough (principal); R50.9 Fever, unspecified

== ENCOUNTER → 2017-12-25 | Outpatient (CLI) | payer BC ==
[~2017-12-25] MED LIST changes: +ONDA-170 PO; -ONDA8TAB6 PO; +OPTIRAY 320 IV PRN
--- NOTE | 2017-12-25 16:05 | DIAGNOSTIC IMAGING REPORT ---
ABD/PELVIS IV AND ORAL CONT CT DOSE: 588.97 mGycm HISTORY: Lung carcinoma LUNG CA TECHNIQUE: Multiaxial CT images of the abdomen and pelvis were performed following the use of intravenous and oral contrast. A dose lowering technique was utilized adhering to the principles of ALARA. COMPARISON STUDY: 08/11/2017 FINDINGS: The lung bases are clear. The liver, spleen, gallbladder, pancreas, kidneys, and adrenal glands are within normal limits. The bowel pattern is considered nonobstructive. No significant periaortic or retroperitoneal adenopathy. Cystic and complex cystic changes within the central pelvis are slightly increased in prominence. Maximum dimension of the largest cystic complex is currently 5.5 cm. This is slightly increased from the prior study of 5.0 cm. An additional complex partially cystic lesion anterior to the bladder currently measures 3.5 cm. Prior: Transaxial dimension is 2.5 cm. There is a small additional nodular process lateral to this density measuring 1.4 cm. This is mildly increased compared to the prior study of 1.0 cm. Bladder remains midline. There is no free fluid within the low pelvis. There is no significant sidewall adenopathy.. IMPRESSION: 1. Mildly progressive cystic and complex cystic metastatic change involving the central soft tissue pelvis and a region anterior to the bladder. 2. The remainder the study including abdomen remains unremarkable. The above report was generated using voice recognition software. It may contain grammatical, syntax or spelling errors. Electronically signed by: Terrence Moncada M.D. 12/25/2017 4:03 PM Dictated Date/Time: 12/25/2017 3:58 PM
== END | disposition home or self-care (01) ==
LOC: C.CTS 15:02
PROVIDERS: ATTEND Internal Medicine Hematology & Oncology
DX: C49.A5 Gastrointestinal stromal tumor of rectum (principal)

== ENCOUNTER → 2017-12-27 | Outpatient (CLI) | payer BC ==
[~2017-12-27] MED LIST changes: -OPTIRAY 320 IV PRN
[2017-12-27 11:04] LABS: BASO % 1.2 %; BASO ABS # 0.08 K/uL (0-0.2); EOS % 1.7 %; EOS ABS # 0.11 K/uL (0-0.5); HEMATOCRIT 32.4 % (42-52); HEMOGLOBIN 10.7 g/dL (14.0-18.0); IG# 0.16 K/uL (0.00-0.02); LYMPH % 24.8 %; LYMPH ABS # 1.63 K/uL (1.2-3.4); MEAN CELL VOLUME 94.2 fL (80-100); MEAN CORPUSCULAR HEMOGLOBIN 31.1 pg (25-34); MEAN PLATELET VOLUME 9.2 fL (7.4-10.4); MONO % 7.9 %; MONO ABS # 0.52 K/uL (0.11-0.59); NEUT ABS # 4.07 K/uL (1.4-6.5); PLATELET COUNT 240 K/uL (130-400); RED CELL DISTRIBUTION WIDTH CV 15.1 % (11.5-14.5); RED CELL DISTRIBUTION WIDTH SD 51.6 fL (36.4-46.3); WHITE BLOOD COUNT 6.57 K/uL (4.8-10.8)
[2017-12-27 11:32] LABS: ALBUMIN 3.6 gm/dl (3.4-5.0); ALT/SGPT 21 U/L (12-78); AST/SGOT 16 U/L (15-37); BLOOD UREA NITROGEN 21 mg/dl (7-18); CALCIUM 8.7 mg/dl (8.5-10.1); CARBON DIOXIDE 26 mmol/L (21-32); CREATININE 1.28 mg/dl (0.60-1.40); GLUCOSE 97 mg/dl (70-99); POTASSIUM 4.3 mmol/L (3.5-5.1); SODIUM 140 mmol/L (136-145)
[2017-12-27 11:34] LABS: ALKALINE PHOSPHATASE 79 U/L (45-117); TOTAL PROTEIN 6.6 gm/dl (6.4-8.2)
== END | disposition home or self-care (01) ==
LOC: C.LAB 10:17
PROVIDERS: ATTEND Internal Medicine Hematology & Oncology
DX: C34.12 Malignant neoplasm of upper lobe, left bronchus or lung (principal); F31.81 Bipolar II disorder; C61 Malignant neoplasm of prostate; C67.9 Malignant neoplasm of bladder, unspecified

== ENCOUNTER → 2018-02-04 | Outpatient (CLI) | payer BC | END | disposition home or self-care (01) | LOC: C.LAB1850 16:15 | PROVIDERS: ATTEND Internal Medicine Hematology & Oncology | DX: C34.12 Malignant neoplasm of upper lobe, left bronchus or lung (principal) ==

== ENCOUNTER → 2018-02-12 | Outpatient (CLI) | payer BC ==
--- NOTE | 2018-02-12 07:23 | DIAGNOSTIC IMAGING REPORT ---
CT OF THE CHEST WITH IV CONTRAST CLINICAL HISTORY: METASTATIC CARCINOMA COMPARISON STUDY: November 26, 2017 TECHNIQUE: Following the IV administration of 92 mL of Optiray-320, CT of the thorax was performed from the thoracic inlet to the lung bases. Images are reviewed in the axial, sagittal, and coronal planes. IV contrast was administered without complication. A dose lowering technique was utilized adhering to the principles of ALARA. CT DOSE: 572.19 mGy.cm FINDINGS: Thyroid: Imaged portions of the thyroid gland are normal in appearance. Thoracic aorta: The thoracic aorta is normal in course and caliber, noting standard 3-vessel arch anatomy. No aneurysm or dissection is seen. Pulmonary vasculature: The pulmonary trunk is normal in caliber. There are no central filling defects identified to suggest pulmonary embolus. Note that this examination was not protocoled for the evaluation of pulmonary emboli. HEART: The heart is normal in size and configuration, without pericardial effusion. Lungs and pleural spaces: There are no pleural effusions. There is basilar atelectasis. There is a persistent linear and nodular opacity within the lingula. The more focal nodular component measures 14 x 11 mm. This remains essentially unchanged. Mediastinum: There are multiple mediastinal lymph nodes, several which are the upper limits of normal in size. Sonia: Left hilar lymph nodes remain the upper limits of normal in size Axilla: There is no evidence of pathologic axillary lymphadenopathy Upper abdomen: Partially visualized upper abdominal viscera is within normal limits. Skeletal structures: There are no lytic or blastic osseous lesions. IMPRESSION: 1. No change in the appearance of the left upper lobe nodule with adjacent linear scarring 2. Mildly prominent mediastinal lymph nodes, similar to the preceding study 3. No new or enlarging pulmonary nodules Electronically signed by: Job Redding M.D. 02/12/2018 7:22 AM Dictated Date/Time: 02/12/2018 7:15 AM
--- NOTE | 2018-02-12 07:29 | DIAGNOSTIC IMAGING REPORT ---
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 TECHNIQUE: Multidetector CT of the abdomen and pelvis was performed after the administration of oral and intravenous contrast. IV contrast: 92 mL of Optiray 320. A dose lowering technique was used consistent with the principles of ALARA (as low as reasonably achievable). COMPARISON: 12/25/2017. CT DOSE (mGy.cm): The estimated cumulative dose is 572.19. FINDINGS: Service Delivery Manager topogram: Unremarkable. Lung bases: Minimal basilar opacities, likely atelectasis. Normal heart size. No pericardial or pleural effusion. Liver: Normal morphology. No liver lesion. Patent hepatic vasculature. Biliary: No intrahepatic or extrahepatic biliary ductal dilatation. Normal gallbladder. Pancreas: Mild parenchymal atrophy. Spleen: Normal. Adrenal glands: Normal. Kidneys and ureters: Mild left pelvocaliectasis and prominence of the left ureter. The appearance is new from prior. Parapelvic cysts at the lower pole of the left kidney unchanged. The left ureter remains mildly dilated to the level of the iliac bifurcation. No right hydronephrosis or hydroureter. Few subcentimeter hypodensities likely cysts in the kidneys. Asymmetric mild left perinephric fluid. No nephrolithiasis. Bladder: Incompletely evaluated secondary to underdistention. The bladder is displaced by multiple enlarging pelvic masses. Pelvic organs: Postsurgical changes of prostatectomy. No gross evidence of suspicious soft tissue at the ureteral anastomosis. Bowel: The upper rectum is narrowed by multiple enlarging pelvic masses. A colocolonic anastomosis is present at the junction of the descending and sigmoid colon. Mild stool burden in the colon proximal to this. Postsurgical changes of the cecum likely indicate appendectomy. Oral contrast has transited to the mid to distal ileum. An enteroenteric anastomosis is noted in the right mid abdomen, which appears patent. However, a partially cystic mass is noted adjacent to this (series 7 image 250). No bowel obstruction. Peritoneal cavity: There has been significant interval progression of the solid and centrally necrotic soft tissue masses in the peritoneum, which now extend into the right upper quadrant and periumbilical region. Lymph nodes: No enlarged lymph nodes in the abdomen or pelvis. Vasculature: Atherosclerosis of the normal caliber abdominal aorta. IVC patent. Abdominal wall: Postsurgical changes of the midline ventral abdominal wall. Bilateral gynecomastia noted. Varicoceles may be present versus fluid along the inguinal canals. Musculoskeletal: Degenerative changes of the spine. Bilateral pars defects of L5. Anterolisthesis of L5 on S1. No destructive osseous lesion. IMPRESSION: 1. Significant interval progression of peritoneal metastatic disease with solid and centrally necrotic soft tissue mass is now extending into the right upper quadrant and periumbilical region. Interval development of mild left hydroureteronephrosis secondary to compression or, less likely, invasion of the mid left ureter at the level of the iliac bifurcation by the enlarging pelvic masses. 2. Postsurgical changes of the bowel with patent colocolonic and enteroenteric anastomoses. Electronically signed by: Balaji Aguilar M.D. 02/12/2018 7:28 AM Dictated Date/Time: 02/12/2018 7:18 AM
== END | disposition home or self-care (01) ==
LOC: C.CTS 06:19
PROVIDERS: ATTEND Internal Medicine Hematology & Oncology
DX: C49.A5 Gastrointestinal stromal tumor of rectum (principal); C78.6 Secondary malignant neoplasm of retroperitoneum and peritoneum

== ENCOUNTER 2018-02-14 09:51 | Inpatient (IN) | payer BC, OTHER ==
[~2018-02-14] VITALS: Ht 182.9 cm; Wt 76.9 kg
[2018-02-14] MEDS ORDERED: MoRPHine SULFATE 4 MG/ML 1 ML CARP\\VIAL IV STA ×2 (10:28→11:26)
[2018-02-14] MEDS ORDERED: ONDANSETRON INJ 2 MG/ML 2 ML VIAL IV STA (10:28)
--- NOTE | 2018-02-14 10:37 | EMERGENCY ROOM VISIT NOTE ---
History Report prepared by Brando: Gustavo Chino Under the Supervision of: Dr. Boogie Hernandez M.D. First contact with patient: 10:17 Chief Complaint: BACK PAIN Stated Complaint: SEVERE UPPER BACK PAIN History of Present Illness The patient is a 72 year old male who presents to the Emergency Room with complaints of worsening left-sided flank pain that began a couple of weeks ago. Patient states that he has a history of a gastrointestinal stromal tumor from 2015. He states that he has had 2 surgeries for the tumor. He states that his oncologist is Dr. Moy. He states that he spoke with Dr. Moy today who then referred him to the ER. Patient states that he has been taking Tramadol and 5mg Oxycodone for the pain. He adds that standing and walking around relieves the pain. Patient adds that he has burning with urination. He states that he is not passing a lot of urine as well. Patient is present with his . states that the patient has been weaker than usual. Patient adds that he has had difficulty balancing as well. He adds that he has had no appetite but that his weight has remained stable. Patient states that his family doctor is Dr. Mejia. Patient denies receiving chemotherapy right now. Patient states that he has a history of depression and atrial fibrillation. Patient states that his mood is "surprisingly alright" right now. Patient denies taking any blood thinners. Patient denies fevers, chest pain, SOB, numbness, and hematuria. Source of History: patient Onset: Couple weeks ago Position: back (Left-sided) Timing: worsening Modifying Factors (Relieving): movement (Standing and walking around), other (Tramadol and Oxycodone) Associated Symptoms: + urinary symptoms (Burning with urination), + weakness , No fevers, No chest pain, No SOB, No numbness Note: Patient denies hematuria. Review of Systems See HPI for pertinent positives & negatives. A total of 10 systems reviewed and were otherwise negative. Past Medical & Surgical Medical Problems: (1) GERD (gastroesophageal reflux disease) (2) GI bleed (3) H/O endoscopy (4) History of cancer (5) Hydroureteronephrosis (6) Partial small bowel obstruction (7) SBO (small bowel obstruction) Old medical records were reviewed. Nurse's notes were reviewed and I agree with. Family History Cancer Social History Smoking Status: Former Smoker Alcohol Use: occasionally Drug Use: none Marital Status: Housing Status: lives with family Occupation Status: retired Current/Historical Medications Scheduled Bupropion Hcl (Wellbutrin Xl), 150 MG PO QAM Cholecalciferol (Vitamin D3), 1,000 UNITS PO QAM Cyanocobalamin (Vitamin B-12), 500 MCG PO QAM Folic Acid (Folvite), 400 MCG PO QAM Lamotrigine (Lamictal), 200 MG PO BID Pantoprazole (Protonix), 40 MG PO QAM Ranitidine Hcl (Zantac), 300 MG PO HS Scheduled PRN Acetaminophen (Tylenol), 1,000 MG PO DIRECTED PRN for Pain or Fever Epinephrine (Epipen), 0.3 MG IM UD PRN for ALLERGIC REACTION Lorazepam (Ativan), 0.5 MG PO Q6H PRN for Anxiety/Agitation Ondansetron Hcl (Zofran), 8 MG PO Q6H PRN for Nausea Oxycodone Ir (Roxicodone Ir), 5-10 MG PO Q6H PRN for Pain Sildenafil Citrate (Viagra), 50 MG PO PRN PRN for UD Tramadol (Ultram), 50 MG PO Q8H PRN for Pain Miscellaneous Medications Alum & Mag Hydrox-Simethicone (Mylanta) Allergies Coded Allergies: Sulfa Antibiotics (Verified Allergy, Severe, ANAPHYLAXIS, BAD RASH, ) Wasp (Verified Allergy, Severe, HIVES-EPIPEN NEEDED, 02/14/18) Doxycycline (Verified Allergy, Unknown, ITCHYNESS, 02/14/18) Phenytoin (Verified Allergy, Unknown, VERTIGO,DIZZINESS, 02/14/18) Yellow Jacket (Verified Allergy, Unknown, HIVES-SEVERE IN PAST-HAS EPIPEN , 02/14/18) Hydromorphone (Verified Adverse Reaction, Intermediate, Dizzy, 02/14/18) NSAIDs (Verified Adverse Reaction, Unknown, gi bleed, 02/14/18) Physical Exam Vital Signs Date Time Temp Pulse Resp B/P (MAP) Pulse Ox O2 Delivery O2 Flow Rate FiO2 02/14/18 13:03 74 18 130/77 98 Room Air 02/14/18 12:12 98 Room Air 02/14/18 11:52 72 16 135/64 98 Room Air 02/14/18 10:07 36.6 77 18 133/75 98 Room Air 02/14/18 10:00 36.6 77 18 133/75 98 Room Air Physical Exam General: Non-ill appearing older male in no acute distress. HEENT: Normal cephalic atraumatic. Pupils are equal round and reactive to light. Extraocular movements are intact. Oropharynx is pink with moist mucous membranes. No swelling of the mouth lips or tongue. Neck: Supple with a midline trachea. No meningeal signs or stiffness, no JVD or bruits. No Stridor. Chest: Clear to auscultation bilaterally. No wheezes or rhonchi. No increased work of breathing. Heart: regular rate and rhythm. Abdomen: Scar from previous prostatectomy. Mild tenderness on right side otherwise soft, nondistended without rebound guarding or rigidity. Extremities: No cyanosis clubbing or edema. No calf tenderness or assymetry Spine/Back. No significant left flank tenderness to palpation. No rash or bruising. No CVA tenderness Skin: Good turgor without rashes. Neurologic exam: Cranial nerves two through 12 are intact. Motor and sensation are intact and symmetrical throughout. Medical Decision & Procedures Laboratory Results 02/14/18 10:40 Red Blood Count 3.60, Mean Corpuscular Volume 85.8, Mean Corpuscular Hemoglobin 27.8, Mean Corpuscular Hemoglobin Concent 32.4, Mean Platelet Volume 9.7, Neutrophils (%) (Auto) 70.0, Lymphocytes (%) (Auto) 14.9, Monocytes (%) (Auto) 12.2, Eosinophils (%) (Auto) 1.5, Basophils (%) (Auto) 0.6, Neutrophils # (Auto ) 5.48, Lymphocytes # (Auto) 1.17, Monocytes # (Auto) 0.96, Eosinophils # (Auto ) 0.12, Basophils # (Auto) 0.05 02/14/18 10:40 Test 02/14/18 10:40 02/14/18 12:00 White Blood Count 7.84 K/uL (4.8-10.8) Red Blood Count 3.60 M/uL (4.7-6.1) Hemoglobin 10.0 g/dL (14.0-18.0) Hematocrit 30.9 % (42-52) Mean Corpuscular Volume 85.8 fL (80-100) Mean Corpuscular Hemoglobin 27.8 pg (25-34) Mean Corpuscular Hemoglobin Concent 32.4 g/dl (32-36) Platelet Count 360 K/uL (130-400) Mean Platelet Volume 9.7 fL (7.4-10.4) Neutrophils (%) (Auto) 70.0 % Lymphocytes (%) (Auto) 14.9 % Monocytes (%) (Auto) 12.2 % Eosinophils (%) (Auto) 1.5 % Basophils (%) (Auto) 0.6 % Neutrophils # (Auto) 5.48 K/uL (1.4-6.5) Lymphocytes # (Auto) 1.17 K/uL (1.2-3.4) Monocytes # (Auto) 0.96 K/uL (0.11-0.59) Eosinophils # (Auto) 0.12 K/uL (0-0.5) Basophils # (Auto) 0.05 K/uL (0-0.2) RDW Standard Deviation 45.0 fL (36.4-46.3) RDW Coefficient of Variation 14.2 % (11.5-14.5) Immature Granulocyte % (Auto) 0.8 % Immature Granulocyte # (Auto) 0.06 K/uL (0.00-0.02) Prothrombin Time 10.3 SECONDS (9.0-12.0) Prothromb Time International Ratio 1.0 (0.9-1.1) Anion Gap 5.0 mmol/L (3-11) Est Creatinine Clear Calc Drug Dose 49.7 ml/min Estimated GFR () 59.0 Estimated GFR (Non- 50.9 BUN/Creatinine Ratio 10.5 (10-20) Calcium Level 8.8 mg/dl (8.5-10.1) Phosphorus Level 2.8 mg/dl (2.5-4.9) Magnesium Level 2.1 mg/dl (1.8-2.4) Total Bilirubin 0.3 mg/dl (0.2-1) Direct Bilirubin 0.1 mg/dl (0-0.2) Aspartate Amino Transf (AST/SGOT) 27 U/L (15-37) Alanine Aminotransferase (ALT/SGPT) 22 U/L (12-78) Alkaline Phosphatase 250 U/L (45-117) Total Protein 7.7 gm/dl (6.4-8.2) Albumin 3.6 gm/dl (3.4-5.0) Lipase 92 U/L (73-393) Urine Color YELLOW Urine Appearance CLEAR (CLEAR) Urine pH 6.0 (4.5-7.5) Urine Specific [place] 1.013 (1.000-1.030) Urine Protein NEG (NEG) Urine Glucose (UA) NEG (NEG) Urine Ketones NEG (NEG) Urine Occult Blood 1+ (NEG) Urine Nitrite NEG (NEG) Urine Bilirubin NEG (NEG) Urine Urobilinogen NEG (NEG) Urine Leukocyte Esterase NEG (NEG) Urine WBC (Auto) 1-5 /hpf (0-5) Urine RBC (Auto) 0-4 /hpf (0-4) Urine Hyaline Casts (Auto) 0 /lpf (0-5) Urine Epithelial Cells (Auto) 0-5 /lpf (0-5) Urine Bacteria (Auto) NEG (NEG) Laboratory studies as stated above per my review. Medications Administered Medications (Trade) Dose Ordered Sig/Sapna Route Start Time Stop Time Status Last Admin Dose Admin Morphine Sulfate (MoRPHine SULFATE INJ) 4 mg NOW STAT IV 02/14/18 10:28 02/14/18 10:29 DC 02/14/18 10:45 4 MG Ondansetron HCl (Zofran Inj) 4 mg NOW STAT IV 02/14/18 10:28 02/14/18 10:29 DC 02/14/18 10:44 4 MG Sodium Chloride 1,000 ml @ 999 mls/hr Q1H1M STAT IV 02/14/18 11:07 02/14/18 12:07 DC 02/14/18 11:38 999 MLS/HR Sodium Chloride 1,000 ml @ 150 mls/hr Q6H40M ONCE IV 02/14/18 11:07 02/14/18 14:36 DC 02/14/18 11:38 150 MLS/HR Morphine Sulfate (MoRPHine SULFATE INJ) 4 mg NOW STAT IV 02/14/18 11:26 02/14/18 11:27 DC 02/14/18 11:37 4 MG Morphine Sulfate (MoRPHine SULFATE INJ) 2 mg Q3HWA PRN IV 02/14/18 12:30 02/28/18 12:29 02/14/18 14:23 2 MG Lorazepam (Ativan Tab) 0.5 mg Q6H PRN PO 02/14/18 12:30 03/16/18 12:29 02/14/18 14:26 0.5 MG ED Course 1018: Past medical records reviewed. The patient was evaluated in room A2, and a complete history and physical examination were performed. 1028: Zofran 4mg IV and Morphine Sulfate 4mg IV 1107: Sodium Chloride 1000 ml @ 150 mls/hr IV and Sodium Chloride 1000 ml @ 999 mls/hr IV 1114: I reassessed the patient. He states that he is still having pain. 1126: Morphine Sulfate 4mg IV 1144: Upon reevaluation, the patient will be further evaluated. I discussed the results and treatment plan with the patient. He verbalized agreement of the treatment plan. The patient will be evaluated for further management. Medical Decision Differentials include, but are not limited to; cancer related complication, hydronephrosis, sepsis, infection, and electrolyte or metabolic abnormality. This patient comes in as described above. he has continuing the left flank pain. He has a history of GIST and has had 2 surgeries for this. Her is followed by Dr. Moy in hematology/oncology. The patient tells me he was told he is no longer a surgical candidate for further surgeries and they are considering radiation for debulking. He did have a CAT scan 2 days ago which showed significant increase in size of the tumor in the abdomen as well as some hydronephrosis likely related obstruction. IV access was established and he was hydrated with IV normal saline. He has no white count or fever to suggest infection. Clinically, he does not appear to have pyelonephritis. He has no electrolyte or metabolic abnormalities and his creatinine is not significant elevated. Urinalysis was ordered and is pending. He received IV morphine twice and I do think needs to be admitted for pain management and further treatment and evaluation. He may ultimately need this area stented or even percutaneously drained. I discussed case with Dr. Moy and his oncologist who agrees. I then called the hospitalist who saw him in the ER will admit him for these measures. Medication Reconcilliation Current Medication List: was personally reviewed by me Blood Pressure Screening Patient's blood pressure: Normal blood pressure Blood pressure disposition: Did not require urgent referral Consults Time Called: 1116 Consulting Physician: Dr. Chinmay AMARO Returned Call: [phone] Discussed the patient's case. Dr. Moy recommends keeping the patient here for further evaluation. Additional Consults: Time Called: 1132 Consulted Physician: Dr. German PUGH Returned Call: [phone] Additional Comments: Discussed the patient's case. The patient will be evaluated for further management. Impression Primary Impression: Hydronephrosis Additional Impressions: Left-sided back pain Gastrointestinal stromal tumor (GIST) Scribe Attestation The scribe's documentation has been prepared under my direction and personally reviewed by me in its entirety. I confirm that the note above accurately reflects all work, treatment, procedures, and medical decision making performed by me. Departure Information Dispostion Being Evaluated By Hospitalist Referrals Balaji Mejia M.D. (PCP) Forms HOME CARE DOCUMENTATION FORM, IMPORTANT VISIT INFORMATION Patient Instructions My [facility] Problem Qualifiers
[2018-02-14 10:50] LABS: BASO % 0.6 %; BASO ABS # 0.05 K/uL (0-0.2); EOS % 1.5 %; EOS ABS # 0.12 K/uL (0-0.5); HEMATOCRIT 30.9 % (42-52); IG# 0.06 K/uL (0.00-0.02); LYMPH % 14.9 %; LYMPH ABS # 1.17 K/uL (1.2-3.4); MEAN CELL VOLUME 85.8 fL (80-100); MEAN CORPUSCULAR HEMOGLOBIN 27.8 pg (25-34); MEAN CORPUSCULAR HGB CONC 32.4 g/dl (32-36); MEAN PLATELET VOLUME 9.7 fL (7.4-10.4); MONO % 12.2 %; MONO ABS # 0.96 K/uL (0.11-0.59); NEUT ABS # 5.48 K/uL (1.4-6.5); PLATELET COUNT 360 K/uL (130-400); RED CELL DISTRIBUTION WIDTH CV 14.2 % (11.5-14.5); WHITE BLOOD COUNT 7.84 K/uL (4.8-10.8)
[2018-02-14] MEDS ORDERED: SODIUM CHLORIDE 0.9% 1000ML 1,000 ML IV STA (11:07)
[2018-02-14] MEDS ORDERED: SODIUM CHLORIDE 0.9% 1000ML 1,000 ML IV ONE (11:07)
[2018-02-14] MEDS ORDERED: ALUM-30 (11:14)
[2018-02-14 11:17] LABS: ALBUMIN 3.6 gm/dl (3.4-5.0); CALCIUM 8.8 mg/dl (8.5-10.1); CREATININE 1.36 mg/dl (0.60-1.40); POTASSIUM 3.9 mmol/L (3.5-5.1); TOTAL PROTEIN 7.7 gm/dl (6.4-8.2)
[2018-02-14 12:12] VITALS: O2SAT 98; Ht 182.9 cm; Wt 76.9 kg
[2018-02-14] MEDS ORDERED: MoRPHine SULFATE 4 MG/ML 1 ML CARP\\VIAL IV PRN ×2 (12:30→16:30)
[2018-02-14] MEDS ORDERED: DOCUSATE SODIUM 100 MG CAP PO PRN (12:30)
[2018-02-14] MEDS ORDERED: MAGNESIUM HYDROXIDE SUSP 30 ML UDC PO PRN (12:30)
[2018-02-14] MEDS ORDERED: POLYETHYLENE (MIRALAX) 17 GM PACK PO PRN (12:30)
--- NOTE | 2018-02-14 13:13 | History and Physical ---
History & Physical Date & Time of Service: February 14, 2018 at 11:53 Chief Complaint: Severe Upper Back Pain Primary Care Physician: Balaji Mejia M.D. History of Present Illness Source: patient, family Mr. Breen is an unfortunate 72yo male with history of prostate cancer s/p radiation 2008, or urethral/bladder papillary cancer status post TURBT 2014, GI stromal tumor diagnosed 12/2014 ( s/p excision & Gleevac & Sutent, was on additional oral agents until November 2017, discontinued due to intolerance), left- sided lung adenocarcinoma status post stereotactic radiation 2015, Barretts esophagus, atrial fibrillation x 1 episode/self limited, bipolar I. Patient follows with Dr. Byrd. Patient had a CT Abdomen performed yesterday which showed advance of his intraabdominal tumor burden as well as possible hydroureteronephrosis. Patietn complaining of 2-3 weeks of pain that initially started in the low back. Pain has intensified over the last 2 weeks and is now predominantly located in his upper left back with radiation to bilateral groin and testes. Patient was using oxycodone at home q 2.5 - 3 hours and was initially getting adequate pain control. However, today his pain was not at all relieved with the Oxycodone. He also endorses progressive urinary complaints over the last 2- 3 weeks to include urinary urgency, frequency and dysuria as well as decreased UOP. Urine is clear yellow in color, no foul odor, no blood. On arrival to the ER patient was in pain, he was administered 4mg of Morphine x 2 doses which improved the pain from a 10 to a 6. Patient denies fevers/chills/ vomiting/diarrhea. He states that he has poor appetite with food aversion, tolerates sweets and milkshakes only. He also endorses constipation which has more or less resolved. No additional complaints at this time. ER Course: Morphine 4mg IV x 2, NSS x 1 liter, Zofran 4mg IV Past Medical/Surgical History Medical Problems: 1. NSCLCA/adenocarcinoma - left lung s/p XRT, EBUS in 08/2017 with possible recurrence 2. GIST diagnosed 12/2016 3. Prostate CA s/p XRT 2008 4. Bladder CA - frequent cystoscopy for monitoring, last 5 months ago 5. Barretts esophagus 6. Atrial fibrillation - one episode, remote, self limited 7. Bipolar 1 8. GERD 9. Anxiety 10. GIB 11. Partial SBO Past Surgical History: 1. Abdominal debulking surgery x 2 2. Prostatectomy 3. TURBT 2015 4. Inguinal hernia repair x 2 5. Partial colectomy 6. Cystoscopy 7. EBUS Family History Cancer Social History Smoking Status: Former Smoker Alcohol Use: none Drug Use: none Marital Status: Housing status: lives with family Occupational Status: retired Allergies Coded Allergies: Sulfa Antibiotics (Verified Allergy, Severe, ANAPHYLAXIS, BAD RASH, ) Wasp (Verified Allergy, Severe, HIVES-EPIPEN NEEDED, 02/14/18) Doxycycline (Verified Allergy, Unknown, ITCHYNESS, 02/14/18) Phenytoin (Verified Allergy, Unknown, VERTIGO,DIZZINESS, 02/14/18) Yellow Jacket (Verified Allergy, Unknown, HIVES-SEVERE IN PAST-HAS EPIPEN , 02/14/18) Hydromorphone (Verified Adverse Reaction, Intermediate, Dizzy, 02/14/18) NSAIDs (Verified Adverse Reaction, Unknown, gi bleed, 02/14/18) Home Medications Scheduled Bupropion Hcl (Wellbutrin Xl), 150 MG PO QAM Cholecalciferol (Vitamin D3), 1,000 UNITS PO QAM Cyanocobalamin (Vitamin B-12), 500 MCG PO QAM Folic Acid (Folvite), 400 MCG PO QAM Lamotrigine (Lamictal), 200 MG PO BID Pantoprazole (Protonix), 40 MG PO QAM Ranitidine Hcl (Zantac), 300 MG PO HS Scheduled PRN Acetaminophen (Tylenol), 1,000 MG PO DIRECTED PRN for Pain or Fever Epinephrine (Epipen), 0.3 MG IM UD PRN for ALLERGIC REACTION Lorazepam (Ativan), 0.5 MG PO Q6H PRN for Anxiety/Agitation Ondansetron Hcl (Zofran), 8 MG PO Q6H PRN for Nausea Oxycodone Ir (Roxicodone Ir), 5-10 MG PO Q6H PRN for Pain Sildenafil Citrate (Viagra), 50 MG PO PRN PRN for UD Tramadol (Ultram), 50 MG PO Q8H PRN for Pain Miscellaneous Medications Alum & Mag Hydrox-Simethicone (Mylanta) Review of Systems Constitutional: No fever, No chills, No sweats, No fatigue Eyes: No worsening of vision, No redness, No diplopia ENT: No hearing loss, No sore throat, No trouble swallowing Respiratory: No cough, No sputum, No wheezing, No shortness of breath Cardiovascular: No chest pain, No edema Abdomen: + nausea, + constipation, No pain, No vomiting, No diarrhea, No GI bleeding Musculoskeletal: No joint pain, No muscle pain Genitourinary - Male: + dysuria, + urinary frequency, + urinary urgency, No hematuria Neurologic: No weakness, No numbness/tingling Hematologic / Lymphatic: No abnormal bleeding/bruising, No clotting problems Integumentary: No rash, No itch Physical Exam Vital Signs Date Time Temp Pulse Resp B/P (MAP) Pulse Ox O2 Delivery O2 Flow Rate FiO2 02/14/18 11:52 72 16 135/64 98 Room Air 02/14/18 10:07 36.6 77 18 133/75 98 Room Air 02/14/18 10:00 36.6 77 18 133/75 98 Room Air General Appearance: WD/WN, no apparent distress Head: normocephalic, atraumatic Eyes: normal inspection, PERRL, EOMI, sclerae normal, + pertinent finding ( pale conjunctiva) ENT: normal ENT inspection, pharynx normal Neck: supple, no adenopathy, thyroid normal, no JVD, trachea midline Respiratory/Chest: chest non-tender, no respiratory distress, no accessory muscle use, + pertinent finding (diminished breath sounds anterior left) Cardiovascular: regular rate, rhythm, no edema, no gallop, no JVD, no murmur, normal peripheral pulses Abdomen/GI: normal bowel sounds, soft, no organomegaly, no pulsatile mass, + pertinent finding (mild abdominal tenderness with deep palpation, no rebound/ guarding) Back: normal inspection Extremities/Musculoskelatal: normal inspection, no calf tenderness, no pedal edema Neurologic/Psych: no motor/sensory deficits, alert, oriented x 3 Skin: normal color, warm/dry, no rash Diagnostics Laboratory Results Results Past 24 Hours Test 02/14/18 10:40 Range/Units White Blood Count 7.84 4.8-10.8 K/uL Red Blood Count 3.60 4.7-6.1 M/uL Hemoglobin 10.0 14.0-18.0 g/dL Hematocrit 30.9 42-52 % Mean Corpuscular Volume 85.8 80-100 fL Mean Corpuscular Hemoglobin 27.8 25-34 pg Mean Corpuscular Hemoglobin Concent 32.4 32-36 g/dl Platelet Count 360 130-400 K/uL Mean Platelet Volume 9.7 7.4-10.4 fL Neutrophils (%) (Auto) 70.0 % Lymphocytes (%) (Auto) 14.9 % Monocytes (%) (Auto) 12.2 % Eosinophils (%) (Auto) 1.5 % Basophils (%) (Auto) 0.6 % Neutrophils # (Auto) 5.48 1.4-6.5 K/uL Lymphocytes # (Auto) 1.17 1.2-3.4 K/uL Monocytes # (Auto) 0.96 0.11-0.59 K/uL Eosinophils # (Auto) 0.12 0-0.5 K/uL Basophils # (Auto) 0.05 0-0.2 K/uL RDW Standard Deviation 45.0 36.4-46.3 fL RDW Coefficient of Variation 14.2 11.5-14.5 % Immature Granulocyte % (Auto) 0.8 % Immature Granulocyte # (Auto) 0.06 0.00-0.02 K/uL Sodium Level 136 136-145 mmol/L Potassium Level 3.9 3.5-5.1 mmol/L Chloride Level 104 98-107 mmol/L Carbon Dioxide Level 27 21-32 mmol/L Anion Gap 5.0 3-11 mmol/L Blood Urea Nitrogen 14 7-18 mg/dl Creatinine 1.36 0.60-1.40 mg/dl Est Creatinine Clear Calc Drug Dose 49.7 ml/min Estimated GFR () 59.0 Estimated GFR (Non- 50.9 BUN/Creatinine Ratio 10.5 10-20 Random Glucose 105 70-99 mg/dl Calcium Level 8.8 8.5-10.1 mg/dl Total Bilirubin 0.3 0.2-1 mg/dl Direct Bilirubin 0.1 0-0.2 mg/dl Aspartate Amino Transf (AST/SGOT) 27 15-37 U/L Alanine Aminotransferase (ALT/SGPT) 22 12-78 U/L Alkaline Phosphatase 250 45-117 U/L Total Protein 7.7 6.4-8.2 gm/dl Albumin 3.6 3.4-5.0 gm/dl Lipase 92 73-393 U/L Diagnostic Radiology ABD/PELVIS IV AND ORAL CONT - PERFORMED 02/12/18 CLINICAL HISTORY: 72 years-old Male presenting with GIST C 49.A5. TECHNIQUE: Multidetector CT of the abdomen and pelvis was performed after the administration of oral and intravenous contrast. IV contrast: 92 mL of Optiray 320. A dose lowering technique was used consistent with the principles of ALARA (as low as reasonably achievable). COMPARISON: 12/25/2017. CT DOSE (mGy.cm): The estimated cumulative dose is 572.19. FINDINGS: [place] topogram: Unremarkable. Lung bases: Minimal basilar opacities, likely atelectasis. Normal heart size. No pericardial or pleural effusion. Liver: Normal morphology. No liver lesion. Patent hepatic vasculature. Biliary: No intrahepatic or extrahepatic biliary ductal dilatation. Normal gallbladder. Pancreas: Mild parenchymal atrophy. Spleen: Normal. Adrenal glands: Normal. Kidneys and ureters: Mild left pelvocaliectasis and prominence of the left ureter. The appearance is new from prior. Parapelvic cysts at the lower pole of the left kidney unchanged. The left ureter remains mildly dilated to the level of the iliac bifurcation. No right hydronephrosis or hydroureter. Few subcentimeter hypodensities likely cysts in the kidneys. Asymmetric mild left perinephric fluid. No nephrolithiasis. Bladder: Incompletely evaluated secondary to underdistention. The bladder is displaced by multiple enlarging pelvic masses. Pelvic organs: Postsurgical changes of prostatectomy. No gross evidence of suspicious soft tissue at the ureteral anastomosis. Bowel: The upper rectum is narrowed by multiple enlarging pelvic masses. A colocolonic anastomosis is present at the junction of the descending and sigmoid colon. Mild stool burden in the colon proximal to this. Postsurgical changes of the cecum likely indicate appendectomy. Oral contrast has transited to the mid to distal ileum. An enteroenteric anastomosis is noted in the right mid abdomen, which appears patent. However, a partially cystic mass is noted adjacent to this (series 7 image 250). No bowel obstruction. Peritoneal cavity: There has been significant interval progression of the solid and centrally necrotic soft tissue masses in the peritoneum, which now extend into the right upper quadrant and periumbilical region. Lymph nodes: No enlarged lymph nodes in the abdomen or pelvis. Vasculature: Atherosclerosis of the normal caliber abdominal aorta. IVC patent. Abdominal wall: Postsurgical changes of the midline ventral abdominal wall. Bilateral gynecomastia noted. Varicoceles may be present versus fluid along the inguinal canals. Musculoskeletal: Degenerative changes of the spine. Bilateral pars defects of L5. Anterolisthesis of L5 on S1. No destructive osseous lesion. IMPRESSION: 1. Significant interval progression of peritoneal metastatic disease with solid and centrally necrotic soft tissue mass is now extending into the right upper quadrant and periumbilical region. Interval development of mild left hydroureteronephrosis secondary to compression or, less likely, invasion of the mid left ureter at the level of the iliac bifurcation by the enlarging pelvic masses. 2. Postsurgical changes of the bowel with patent colocolonic and enteroenteric anastomoses. Electronically signed by: Balaji Aguilar M.D. 02/12/2018 7:28 AM Dictated Date/Time: 02/12/2018 7:18 AM Impression Assessment and Plan 72yo C male with GIST tumor, followed by Oncology presenting with 2 weeks of progressive flank pain with urinary symptoms. CT performed yesterday revealed increased intraabdominal tumor burden as well as possible mild left hydroureteronephrosis. 1. Flank pain with mild hydroureteronephrosis - most likely secondary to increased tumor burden. -Check UA and culture, treat if positive -Strict I/Os, monitor renal function and electrolytes -Gentle IVF NSS at 50mL/hr x 2 liters -Morphine 2mg IV q 3 hours PRN, will adjust as needed -Tramadol PRN -Zofran for nausea control -Aggressive bowel regimen, Colace/MOM/Miralax -Consult Urology - appreciate assistance with this case 2. GIST Tumor - patient presently not on chemotherapy secondary to intolerance. Follows with Dr. Byrd, Oncology. -Consult Oncology - appreciate assistance with this case 3. Bipolar disorder - stable -Continue Lamictal, Bupropion, Ativan PRN anxiety and sleep 4. Poor appetite/Anorexia - patient endorses "aversion to food", most likely secondary to underlying illness -Nutrition consult -Provide sweets and milkshakes as desired -Patient may benefit from Remeron to assist with sleep aid as well as appetite stimulation vs Marinol 5. GERD - Continue Protonix 6. F/E/N - NSS at 50mL/hr x 2 liters, monitor electrolytes and replete as needed, Regular diet with supplements 7. Ppx - Lovenox, continue home Protonix 8. Code - DNR per discussion with patient 9. Dispo - Admit to general medical floor, IV pain medication, Consultation with Urology and Oncology Resuscitation Status DNR VTE Prophylaxis Will order VTE Prophylaxis: Yes
[2018-02-14 13:17] LABS: PHOSPHORUS 2.8 mg/dl (2.5-4.9)
[2018-02-14] MEDS: LORAZEPAM 0.5 MG TAB PO PRN (14:26)
[2018-02-14 14:59] VITALS: BP 137/75; PULSE 65; TEMP 36.7; O2SAT 98
[2018-02-14] MEDS: SODIUM CHLORIDE 0.9% 1000ML 1,000 ML IV SCH (15:00)
[2018-02-14] MEDS ORDERED: IV FLUIDS COMPLETED PRN (15:15)
[2018-02-14] MEDS: TRAMADOL HCL 50 MG TAB PO PRN (16:14)
[2018-02-14] MEDS: ACETAMINOPHEN 325 MG TAB PO PRN ×2 (16:15→22:12)
[2018-02-14] MEDS: ENOXAPARIN 40 MG/0.4 ML SYR SQ SCH (18:33)
[2018-02-14] MEDS ORDERED: NALOXONE HCL 0.4 MG/1 ML VIAL/CARP IV PRN (20:00)
[2018-02-14] MEDS: MoRPHine SULFATE 4 MG/ML 1 ML CARP\\VIAL IV PRN ×2 (20:11→23:20)
--- NOTE | 2018-02-14 23:03 | Progress Note ---
Progress Note Date of Service February 14, 2018. Progress Note Discussed with patient in detail regarding pain management. Patient stated to nurse he was taking q4h Tramadol at home and requested a changed regimen as he felt his pain was under poor control. The patient states that the oxycodone and Tramadol he was using was actually from early 2016 and he has not been prescribed this recently at all. This was brought up after discussing how PDMP did not reflect the patient's current med rec. He also notes that he has been self medicating with these two agents and he notes better control with oxycodone and typically gets symptoms after 4-5 hours. We discussed how pain management should be regimented instead of prn for metastatic pain mx and patient understood. He is seeing Dr Villanueva in palliative care and he has a follow up apt to discuss initiation of a more regimented pain mx. Plan for Oxycodone/ tylenol q4h delilah with morphine 4 mg IV q2h for breakthrough pain. Further augmentation of pain mx will be deferred to the day team as well as need for palliative consult. Patient agreeable with this plan. His ultimate goal is a pain level of 0-3/10. (At 0 he notes he can be too fatigued to complete ADL)
[2018-02-14 23:06] VITALS: BP 121/67; PULSE 58; TEMP 36.8; O2SAT 95
[2018-02-15] MEDS: TRAMADOL HCL 50 MG TAB PO PRN (00:37)
[2018-02-15] MEDS: MoRPHine SULFATE 4 MG/ML 1 ML CARP\\VIAL IV PRN ×4 (02:11→16:40)
[2018-02-15] MEDS: OXYCODONE/ACETAMINOPHEN 5-325 TAB PO PRN ×2 (03:56→08:35)
[2018-02-15] MEDS: ONDANSETRON 8 MG TAB PO PRN ×2 (04:56→17:57)
[2018-02-15 06:12] LABS: BASO % 0.3 %; BASO ABS # 0.03 K/uL (0-0.2); EOS % 0.5 %; EOS ABS # 0.05 K/uL (0-0.5); HEMATOCRIT 30.7 % (42-52); IG# 0.05 K/uL (0.00-0.02); LYMPH % 7.4 %; MEAN CELL VOLUME 86.2 fL (80-100); MEAN CORPUSCULAR HEMOGLOBIN 28.1 pg (25-34); MEAN CORPUSCULAR HGB CONC 32.6 g/dl (32-36); MEAN PLATELET VOLUME 9.7 fL (7.4-10.4); MONO ABS # 0.76 K/uL (0.11-0.59); NEUT % 84.3 %; NEUT ABS # 9.15 K/uL (1.4-6.5); PLATELET COUNT 355 K/uL (130-400); RED CELL DISTRIBUTION WIDTH CV 14.1 % (11.5-14.5); WHITE BLOOD COUNT 10.84 K/uL (4.8-10.8)
[2018-02-15 06:44] LABS: CALCIUM 8.8 mg/dl (8.5-10.1); CREATININE 1.19 mg/dl (0.60-1.40)
[2018-02-15 07:03] VITALS: BP 126/64; PULSE 61; TEMP 36.6; O2SAT 96
[2018-02-15] MEDS: SODIUM CHLORIDE 0.9% 1000ML 1,000 ML IV SCH (07:48)
[2018-02-15] MEDS: BuPROPion XL 150 MG TABCR PO SCH (08:37)
[2018-02-15] MEDS: PANTOprazole SOD 40 MG TAB PO SCH (08:37)
[2018-02-15] MEDS: CYANOCOBALAMIN 500 MCG TAB (VIT B-12) PO SCH (08:43)
[2018-02-15] MEDS: FoLIC ACID TAB 400 MCG TAB PO SCH (08:43)
[2018-02-15] MEDS: CHOLECALCIFEROL 1000 INTER.UNIT TAB PO SCH (08:43)
--- NOTE | 2018-02-15 09:10 | Urology Consultation ---
History General Date of Service: February 15, 2018. Primary Care Physician: Balaji Mejia M.D. Pt seen a urologist before?: Yes If yes, why?: Prostate cancer, bladder cancer History of Present Illness 72-year-old gentleman admitted with left flank pain and lower back pain Very complex medical history with an fortunate frequency of malignancies Treated for prostate cancer with radiation 2009 Bladder cancer in 2014 treated with TURBT GIST tumor Lung adenocarcinoma Now presents with progressive urinary difficulties/frequency/urgency Also with flank and back pain All of his symptoms have progressed significantly over the past 3 weeks Scans upon arrival show a very large, increasing pelvic mass generally displacing the bladder causing mild obstruction of the left ureter Unfortunately, he is not tolerating chemotherapy at present and is off of all treatment Imaging Imaging: CT Laboratory Labs were reviewed and are within normal limits unless listed below. Labs are available in the chart and at [facility] Problem List Medical Problems: (1) Bronchitis Status: Acute (2) Gastrointestinal stromal tumor (GIST) Status: Acute (3) Headache Status: Acute (4) Hydronephrosis Status: Acute (5) Left-sided back pain Status: Acute (6) Lower abdominal pain Status: Acute (7) Partial small bowel obstruction Status: Acute (8) Small bowel obstruction Status: Acute Past History bipolar disorder, cancer, cancer - lung, cancer - prostate, GERD, other Past Surgical History: appendectomy, colonoscopy, EGD, other Family History Cancer Social History Hx Tobacco Use In Past Year?: No (SMOKED 1-2 PPD X 6 YRS-QUIT 1975) Smoking: quit greater than 1 year Marital status: Housing status: lives with family Occupation status: retired History of MDRO No Allergies Coded Allergies: Sulfa Antibiotics (Verified Allergy, Severe, ANAPHYLAXIS, BAD RASH, ) Wasp (Verified Allergy, Severe, HIVES-EPIPEN NEEDED, 02/14/18) Doxycycline (Verified Allergy, Unknown, ITCHYNESS, 02/14/18) Phenytoin (Verified Allergy, Unknown, VERTIGO,DIZZINESS, 02/14/18) Yellow Jacket (Verified Allergy, Unknown, HIVES-SEVERE IN PAST-HAS EPIPEN , 02/14/18) Hydromorphone (Verified Adverse Reaction, Intermediate, Dizzy, 02/14/18) NSAIDs (Verified Adverse Reaction, Unknown, gi bleed, 02/14/18) Medications Home Medications: Home Meds and Scripts Medications Dose Route/Sig Max Daily Dose Days Date Category Mylanta (Alum & Mag Hydrox-Simethicone) 1 Yvonne Yvonne 02/14/18 Reported Viagra (Sildenafil Citrate) 50 Mg Tab 50 Mg PO PRN PRN 09/26/17 Reported Roxicodone Ir (Oxycodone HCl) 5 Mg Tab 5-10 Mg PO Q6H PRN 04/29/17 Reported Tylenol (Acetaminophen) 500 Mg Tab 1,000 Mg PO DIRECTED PRN 04/29/17 Reported Ultram (Tramadol HCl) 50 Mg Tab 50 Mg PO Q8H PRN 04/29/17 Reported Zantac (Ranitidine Hcl) 300 Mg Tab 300 Mg PO HS 02/13/17 Reported Vitamin D3 (Cholecalciferol) 1,000 Unit Tab 1,000 Units PO QAM 90 10/05/16 Reported Vitamin B-12 (Cyanocobalamin) 500 Mcg Tab 500 Mcg PO QAM 10/05/16 Reported Folvite (Folic Acid) 400 Mcg Tab 400 Mcg PO QAM 10/05/16 Reported Zofran (Ondansetron HCl) 8 Mg Tab 8 Mg PO Q6H PRN 10/05/16 Reported Wellbutrin Xl (Bupropion Hcl) 150 Mg Tab 150 Mg PO QAM 03/16/15 Reported Protonix (Pantoprazole) 40 Mg Tab 40 Mg PO QAM 03/16/15 Reported Lamictal (Lamotrigine) 200 Mg Tab 200 Mg PO BID 03/16/15 Reported Epipen (Epinephrine) 0.3 Mg/0.3 Ml Inj 0.3 Mg IM UD PRN 03/16/15 Reported Ativan (Lorazepam) 0.5 Mg Tab 0.5 Mg PO Q6H PRN 03/16/15 Reported Inpatient Medications: Current Inpatient Medications Medications (Trade) Dose Ordered Sig/Sapna Route Start Time Stop Time Status Last Admin Dose Admin Enoxaparin Sodium (Lovenox Inj) 40 mg Q24H SQ 02/14/18 16:00 03/16/18 15:59 02/14/18 18:33 40 MG Acetaminophen (Tylenol Tab) 650 mg Q4H PRN PO 02/14/18 12:30 03/16/18 12:29 02/14/18 22:12 650 MG Magnesium Hydroxide (Milk Of Magnesia Susp) 30 ml Q6H PRN PO 02/14/18 12:30 03/16/18 12:29 Polyethylene (Miralax Powder Packet) 17 gm DAILY PRN PO 02/14/18 12:30 03/16/18 12:29 02/15/18 08:42 17 GM Sodium Chloride 1,000 ml @ 50 mls/hr Q20H IV 02/14/18 15:00 02/16/18 06:59 02/15/18 07:48 50 MLS/HR Bupropion HCl (Wellbutrin-Xl Tab) 150 mg QAM PO 02/15/18 09:00 03/17/18 08:59 02/15/18 08:37 150 MG Cholecalciferol (Vitamin D Tab) 1,000 inter.unit QAM PO 02/15/18 09:00 03/17/18 08:59 Cyanocobalamin (Vitamin B-12 Tab) 500 mcg QAM PO 02/15/18 09:00 03/17/18 08:59 Folic Acid (Folvite Tab) 400 mcg QAM PO 02/15/18 09:00 03/17/18 08:59 Lorazepam (Ativan Tab) 0.5 mg Q6H PRN PO 02/14/18 12:30 03/16/18 12:29 02/14/18 14:26 0.5 MG Ondansetron HCl (Zofran Tab) 8 mg Q6H PRN PO 02/14/18 12:30 03/16/18 12:29 02/15/18 04:56 8 MG Pantoprazole Sodium (Protonix Tab) 40 mg QAM PO 02/15/18 09:00 03/17/18 08:59 02/15/18 08:37 40 MG Tramadol HCl (Ultram Tab) 50 mg Q8H PRN PO 02/14/18 12:30 03/16/18 12:29 02/15/18 00:37 50 MG Lamotrigine (Lamictal Tab) 200 mg BID PO 02/14/18 21:00 03/16/18 20:59 02/15/18 08:37 200 MG Docusate Sodium (coLACE CAP) 100 mg BID PRN PO 02/14/18 12:30 03/16/18 12:29 Miscellaneous (Iv Fluids Completed) 1 ea PRN PRN N/A 02/14/18 15:15 02/14/19 15:14 Morphine Sulfate (MoRPHine SULFATE INJ) 4 mg Q2HWA PRN IV 02/14/18 20:00 02/28/18 12:29 02/15/18 05:00 4 MG Naloxone HCl (Narcan Inj) 0.4 mg ONE PRN IV 02/14/18 20:00 03/16/18 19:59 Oxycodone/ Acetaminophen (Percocet 5-325mg Tab) 1 tab Q4H PRN PO 02/14/18 23:00 02/28/18 22:59 02/15/18 08:35 1 TAB Review of Systems Review of Systems Constitutional: No see HPI, No fever, No chills, No frequent headaches, No weight loss, No problem reported Eyes: No see HPI, No blurred vision, No double vision, No eye pain, No loss of night vision, No problem reported Neurological: No see HPI, No dizzy, No passing out, No numbness/tingling, No seizures, No problem reported Endocrine: No see HPI, No excessive thirst, No too hot, No too cold, No tired/ sluggish, No problem reported Gastrointestinal: + abdominal pain, + constipation Cardiovascular: No see HPI, No heart murmur, No chest pain, No angina, No irregular heartbeat, No palpitations, No swelling ankles/feet, No problem reported Respiratory: No see HPI, No shortness of breath, No wheezing, No coughing up blood, No chronic cough, No problem reported Musculoskeletal: + back pain Blood / Lymphatic: No see HPI, No bleed easily, No bruise easily, No swollen glands, No problem reported Ears / Nose / Throat: No see HPI, No hearing loss, No sinus, No hoarse voice, No sore throat, No problem reported Psychologic / Mental: No see HPI, No nervous, No trouble remembering, No difficulty sleeping, No problem reported Male : + frequent urination, + problem reported All Other Systems: Reviewed and Negative Physical Exam Vital Signs: Vital Signs Past 12 Hours Date Time Temp Pulse Resp B/P (MAP) Pulse Ox O2 Delivery O2 Flow Rate FiO2 02/15/18 07:03 36.6 61 17 126/64 (84) 96 Room Air 02/14/18 23:20 Room Air 02/14/18 23:06 36.8 58 16 121/67 (31) 95 Room Air Physical Exam: General Appearance: WD/WN, no apparent distress Eyes: bilateral eyes normal inspection ENT: hearing grossly normal Neck: supple Respiratory/Chest: no respiratory distress, no accessory muscle use Cardiovascular: regular rate, rhythm, no edema Gastrointestinal: Abdomen: normal abdomen Renal: normal renal Extremities: no pedal edema, no calf tenderness Neurologic/Psychiatric: alert, normal mood/affect, oriented x 3 Skin: warm/dry Lymphatic: no adenopathy Assessment & Plan Assessment & Plan Advance pelvic tumor Suspect that his symptoms are driven from mass-effect from the large pelvic tumor I suspect he has very small bladder capacity secondary to the mass-effect He has mild hydronephrosis on the left, however, his creatinine remains quite acceptable and I am highly uncertain that his stent will relieve his symptoms ( pain) I favor more conservative approach of observation for the time being from a standpoint with treatment geared more towards palliation of his symptoms seem to be driven more by his pelvic mass and peritoneal metastases He has a very good understanding of his current predicament, he is consulting with palliative care We have discussed that if his left flank symptoms progress, we could consider revisiting the options of stenting versus percutaneous nephrostomy placement to attempt symptom relief
--- NOTE | 2018-02-15 10:53 | Oncology Consultation ---
Oncology/Heme Consultation Date of Consultation: February 15, 2018. Attending Physician: Venus Porter D.O. Reason for Consultation: Metastatic GIST Intractable pain History of Present Illness Mr. 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 He has several enlarging pelvic tumors and recently has developed severe pain in his pelvis and low back as a result. He called yesterday with marked worsening of his pain so I referred him to the ER. He also had some evidence of mild hydronephrosis attributable to the tumor, though fortunately his renal function is preserved. I suggested he be admitted for pain control. It appears this was a struggle overnight due to infrequent dosing. He has been receiving Percocet which relieves his pain. However, he is falling behind at night and is not always getting doses at the times he needs them. He also complains of poor appetite and would like to consider an appetite stimulant. Past Medical/Surgical History Medical Problems: (1) Bronchitis Status: Acute (2) Gastrointestinal stromal tumor (GIST) Status: Acute (3) Headache Status: Acute (4) Hydronephrosis Status: Acute (5) Left-sided back pain Status: Acute (6) Lower abdominal pain Status: Acute (7) Partial small bowel obstruction Status: Acute (8) Small bowel obstruction Status: Acute Family History Cancer Social History Smoking Status: Former Smoker Alcohol Use: none Drug Use: none Marital Status: Housing Status: lives with family Occupation Status: retired Allergies Coded Allergies: Sulfa Antibiotics (Verified Allergy, Severe, ANAPHYLAXIS, BAD RASH, ) Wasp (Verified Allergy, Severe, HIVES-EPIPEN NEEDED, 02/14/18) Doxycycline (Verified Allergy, Unknown, ITCHYNESS, 02/14/18) Phenytoin (Verified Allergy, Unknown, VERTIGO,DIZZINESS, 02/14/18) Yellow Jacket (Verified Allergy, Unknown, HIVES-SEVERE IN PAST-HAS EPIPEN , 02/14/18) Hydromorphone (Verified Adverse Reaction, Intermediate, Dizzy, 02/14/18) NSAIDs (Verified Adverse Reaction, Unknown, gi bleed, 02/14/18) Home Medications Scheduled Bupropion Hcl (Wellbutrin Xl), 150 MG PO QAM Cholecalciferol (Vitamin D3), 1,000 UNITS PO QAM Cyanocobalamin (Vitamin B-12), 500 MCG PO QAM Folic Acid (Folvite), 400 MCG PO QAM Lamotrigine (Lamictal), 200 MG PO BID Pantoprazole (Protonix), 40 MG PO QAM Ranitidine Hcl (Zantac), 300 MG PO HS Scheduled PRN Acetaminophen (Tylenol), 1,000 MG PO DIRECTED PRN for Pain or Fever Epinephrine (Epipen), 0.3 MG IM UD PRN for ALLERGIC REACTION Lorazepam (Ativan), 0.5 MG PO Q6H PRN for Anxiety/Agitation Ondansetron Hcl (Zofran), 8 MG PO Q6H PRN for Nausea Oxycodone Ir (Roxicodone Ir), 5-10 MG PO Q6H PRN for Pain Sildenafil Citrate (Viagra), 50 MG PO PRN PRN for UD Tramadol (Ultram), 50 MG PO Q8H PRN for Pain Miscellaneous Medications Alum & Mag Hydrox-Simethicone (Mylanta) Current Inpatient Medications Current Inpatient Medications Medications (Trade) Dose Ordered Sig/Sapna Route Start Time Stop Time Status Last Admin Dose Admin Enoxaparin Sodium (Lovenox Inj) 40 mg Q24H SQ 02/14/18 16:00 03/16/18 15:59 02/14/18 18:33 40 MG Acetaminophen (Tylenol Tab) 650 mg Q4H PRN PO 02/14/18 12:30 03/16/18 12:29 02/14/18 22:12 650 MG Magnesium Hydroxide (Milk Of Magnesia Susp) 30 ml Q6H PRN PO 02/14/18 12:30 03/16/18 12:29 Polyethylene (Miralax Powder Packet) 17 gm DAILY PRN PO 02/14/18 12:30 03/16/18 12:29 02/15/18 08:42 17 GM Sodium Chloride 1,000 ml @ 50 mls/hr Q20H IV 02/14/18 15:00 02/16/18 06:59 02/15/18 07:48 50 MLS/HR Bupropion HCl (Wellbutrin-Xl Tab) 150 mg QAM PO 02/15/18 09:00 03/17/18 08:59 02/15/18 08:37 150 MG Cholecalciferol (Vitamin D Tab) 1,000 inter.unit QAM PO 02/15/18 09:00 03/17/18 08:59 Cyanocobalamin (Vitamin B-12 Tab) 500 mcg QAM PO 02/15/18 09:00 03/17/18 08:59 Folic Acid (Folvite Tab) 400 mcg QAM PO 02/15/18 09:00 03/17/18 08:59 Lorazepam (Ativan Tab) 0.5 mg Q6H PRN PO 02/14/18 12:30 03/16/18 12:29 02/14/18 14:26 0.5 MG Ondansetron HCl (Zofran Tab) 8 mg Q6H PRN PO 02/14/18 12:30 03/16/18 12:29 02/15/18 04:56 8 MG Pantoprazole Sodium (Protonix Tab) 40 mg QAM PO 02/15/18 09:00 03/17/18 08:59 02/15/18 08:37 40 MG Tramadol HCl (Ultram Tab) 50 mg Q8H PRN PO 02/14/18 12:30 03/16/18 12:29 02/15/18 00:37 50 MG Lamotrigine (Lamictal Tab) 200 mg BID PO 02/14/18 21:00 03/16/18 20:59 02/15/18 08:37 200 MG Docusate Sodium (coLACE CAP) 100 mg BID PRN PO 02/14/18 12:30 03/16/18 12:29 Miscellaneous (Iv Fluids Completed) 1 ea PRN PRN N/A 02/14/18 15:15 02/14/19 15:14 Morphine Sulfate (MoRPHine SULFATE INJ) 4 mg Q2HWA PRN IV 02/14/18 20:00 02/28/18 12:29 02/15/18 05:00 4 MG Naloxone HCl (Narcan Inj) 0.4 mg ONE PRN IV 02/14/18 20:00 03/16/18 19:59 Oxycodone/ Acetaminophen (Percocet 5-325mg Tab) 1 tab Q4H PRN PO 02/14/18 23:00 02/28/18 22:59 02/15/18 08:35 1 TAB Review of Systems Constitutional: + weakness, + fatigue, No fever Respiratory: No cough, No shortness of breath Cardiovascular: No chest pain Abdomen: + pain, + problem reported (anorexia) Genitourinary - Male: + dysuria, + urinary frequency Hematologic / Lymphatic: No abnormal bleeding/bruising Physical Exam Date Time Temp Pulse Resp B/P (MAP) Pulse Ox O2 Delivery O2 Flow Rate FiO2 02/15/18 09:39 Room Air 02/15/18 07:03 36.6 61 17 126/64 (84) 96 Room Air 02/14/18 23:20 Room Air 02/14/18 23:06 36.8 58 16 121/67 (85) 95 Room Air 02/14/18 15:15 Room Air 02/14/18 14:59 36.7 65 17 137/75 (95) 98 Room Air 02/14/18 13:43 36.6 74 18 130/67 98 02/14/18 13:30 74 18 130/67 98 Room Air 02/14/18 13:03 74 18 130/77 98 Room Air 02/14/18 12:12 98 Room Air 02/14/18 11:52 72 16 135/64 98 Room Air General Appearance: no apparent distress, + pertinent finding (chronically ill) Respiratory/Chest: lungs clear Cardiovascular: regular rate, rhythm Abdomen/GI: non tender, soft Extremities/Musculoskelatal: no pedal edema Neurologic/Psych: alert, oriented x 3 Skin: no rash Laboratory Results Last 24 Hours Test 02/14/18 12:00 02/15/18 05:53 Urine Color YELLOW Urine Appearance CLEAR Urine pH 6.0 Urine Specific [place] 1.013 Urine Protein NEG Urine Glucose (UA) NEG Urine Ketones NEG Urine Occult Blood 1+ Urine Nitrite NEG Urine Bilirubin NEG Urine Urobilinogen NEG Urine Leukocyte Esterase NEG Urine WBC (Auto) 1-5 /hpf Urine RBC (Auto) 0-4 /hpf Urine Hyaline Casts (Auto) 0 /lpf Urine Epithelial Cells (Auto) 0-5 /lpf Urine Bacteria (Auto) NEG White Blood Count 10.84 K/uL Red Blood Count 3.56 M/uL Hemoglobin 10.0 g/dL Hematocrit 30.7 % Mean Corpuscular Volume 86.2 fL Mean Corpuscular Hemoglobin 28.1 pg Mean Corpuscular Hemoglobin Concent 32.6 g/dl Platelet Count 355 K/uL Mean Platelet Volume 9.7 fL Neutrophils (%) (Auto) 84.3 % Lymphocytes (%) (Auto) 7.4 % Monocytes (%) (Auto) 7.0 % Eosinophils (%) (Auto) 0.5 % Basophils (%) (Auto) 0.3 % Neutrophils # (Auto) 9.15 K/uL Lymphocytes # (Auto) 0.80 K/uL Monocytes # (Auto) 0.76 K/uL Eosinophils # (Auto) 0.05 K/uL Basophils # (Auto) 0.03 K/uL RDW Standard Deviation 45.0 fL RDW Coefficient of Variation 14.1 % Immature Granulocyte % (Auto) 0.5 % Immature Granulocyte # (Auto) 0.05 K/uL Sodium Level 137 mmol/L Potassium Level 4.0 mmol/L Chloride Level 105 mmol/L Carbon Dioxide Level 23 mmol/L Anion Gap 9.0 mmol/L Blood Urea Nitrogen 13 mg/dl Creatinine 1.19 mg/dl Est Creatinine Clear Calc Drug Dose 56.8 ml/min Estimated GFR () 69.3 Estimated GFR (Non- 59.8 BUN/Creatinine Ratio 10.6 Random Glucose 114 mg/dl Calcium Level 8.8 mg/dl Assessment & Plan Mr. Breen has progressive metastatic GIST that has been refractory to treatment, though primarily due to toxicity burden. He is now symptomatic from a large pelvic mass. It is causing compressive symptoms in his pelvis, including dysuria and urinary urgency, along with a mild left hydro with preserved renal function. I wanted him admitted this stay to get his pain under control. Percocet is a poor option for controlling cancer related pain, as the pain is generally not inflammatory and the Tylenol limits the dose of oxycodone we can use. He is also receiving less oxycodone here than he was as an outpatient. I discussed this with Dr. Chen and he will make some adjustments. I also suggested consulting palliative care, as he is scheduled to meet Dr. Mckenna next week anyway. He would also like to try an appetite stimulant, so I would consider Marinol 5 mg PO with meals.
[2018-02-15] MEDS ORDERED: OXYCODONE HCL IR 5 MG TAB (IMMEDIATE RELEASE) PO PRN (11:00)
[2018-02-15] MEDS: OXYCODONE HCL 10 MG TABCR (OXYCONTIN) PO SCH ×2 (11:51→20:19)
--- NOTE | 2018-02-15 13:20 | Hospitalist Progress Note ---
Hospitalist Progress Note Date of Service February 15, 2018. Subjective Pt evaluation today including: conversation w/ patient, conversation w/ family , physical exam, chart review, lab review, review of studies, review of inpatient medication list Patient seen and evaluated. Had a rough night due to pain. New regimen implemented and consultation placed to Dr. Villanueva to help promote good pain control going forward. No urology intervention necessary at this point but will be monitored for further intervention if warranted Had a long conversation with the patient and family about goals of medications and to promote appetite. Patient loves to work outside and would like to continue to do this. Also states he really only has an appetite for sweet food and doesn't eat much. Explained options of Marinol vs Remeron vs other and he agreed to Marinol. Which he has been on Remeron in the past that messed with his sleep and would likely interact with his other behavioral health meds. Also reports concerns for constipation and a good bowel regimen will need to be continued. Pain is doing much better today and is tolerable. Is hoping to go home soon. Did not sleep well last night due to pain and mostly having to lay on his right side which is not his normal sleeping position. Constitutional: No fever, No chills Respiratory: No cough, No shortness of breath Cardiovascular: No chest pain Abdomen: + pain (L flank - improving), No nausea, No vomiting, No diarrhea, No constipation Musculoskeletal: No swelling, No calf pain Male : + dysuria, + urinary frequency Heme: No abnormal bleeding/bruising Medications Current Inpatient Medications Medications (Trade) Dose Ordered Sig/Sapna Route Start Time Stop Time Status Last Admin Dose Admin Enoxaparin Sodium (Lovenox Inj) 40 mg Q24H SQ 02/14/18 16:00 03/16/18 15:59 02/14/18 18:33 40 MG Acetaminophen (Tylenol Tab) 650 mg Q4H PRN PO 02/14/18 12:30 03/16/18 12:29 02/14/18 22:12 650 MG Magnesium Hydroxide (Milk Of Magnesia Susp) 30 ml Q6H PRN PO 02/14/18 12:30 03/16/18 12:29 Polyethylene (Miralax Powder Packet) 17 gm DAILY PRN PO 02/14/18 12:30 03/16/18 12:29 02/15/18 08:42 17 GM Sodium Chloride 1,000 ml @ 50 mls/hr Q20H IV 02/14/18 15:00 02/16/18 06:59 02/15/18 07:48 50 MLS/HR Bupropion HCl (Wellbutrin-Xl Tab) 150 mg QAM PO 02/15/18 09:00 03/17/18 08:59 02/15/18 08:37 150 MG Cholecalciferol (Vitamin D Tab) 1,000 inter.unit QAM PO 02/15/18 09:00 03/17/18 08:59 Cyanocobalamin (Vitamin B-12 Tab) 500 mcg QAM PO 02/15/18 09:00 03/17/18 08:59 Folic Acid (Folvite Tab) 400 mcg QAM PO 02/15/18 09:00 03/17/18 08:59 Lorazepam (Ativan Tab) 0.5 mg Q6H PRN PO 02/14/18 12:30 03/16/18 12:29 02/14/18 14:26 0.5 MG Ondansetron HCl (Zofran Tab) 8 mg Q6H PRN PO 02/14/18 12:30 03/16/18 12:29 02/15/18 04:56 8 MG Pantoprazole Sodium (Protonix Tab) 40 mg QAM PO 02/15/18 09:00 03/17/18 08:59 02/15/18 08:37 40 MG Tramadol HCl (Ultram Tab) 50 mg Q8H PRN PO 02/14/18 12:30 03/16/18 12:29 02/15/18 00:37 50 MG Lamotrigine (Lamictal Tab) 200 mg BID PO 02/14/18 21:00 03/16/18 20:59 02/15/18 08:37 200 MG Docusate Sodium (coLACE CAP) 100 mg BID PRN PO 02/14/18 12:30 03/16/18 12:29 Miscellaneous (Iv Fluids Completed) 1 ea PRN PRN N/A 02/14/18 15:15 02/14/19 15:14 Morphine Sulfate (MoRPHine SULFATE INJ) 4 mg Q2HWA PRN IV 02/14/18 20:00 02/28/18 12:29 02/15/18 10:49 4 MG Naloxone HCl (Narcan Inj) 0.4 mg ONE PRN IV 02/14/18 20:00 03/16/18 19:59 Oxycodone HCl (Roxicodone Immediate Rel Tab) 5 mg Q6 PRN PO 02/15/18 11:00 03/01/18 10:59 Oxycodone HCl (Roxicodone Immediate Rel Tab) 10 mg Q6 PRN PO 02/15/18 11:00 03/01/18 10:59 Dronabinol (Marinol Cap) 2.5 mg BID PO 02/15/18 21:00 03/17/18 20:59 Oxycodone HCl (Oxycontin Tab) 10 mg Q12 PO 02/15/18 11:45 03/01/18 11:44 02/15/18 11:51 10 MG Objective Vital Signs Date Time Temp Pulse Resp B/P (MAP) Pulse Ox O2 Delivery O2 Flow Rate FiO2 02/15/18 09:39 Room Air 02/15/18 07:03 36.6 61 17 126/64 (84) 96 Room Air 02/14/18 23:20 Room Air 02/14/18 23:06 36.8 58 16 121/67 (85) 95 Room Air 02/14/18 15:15 Room Air 02/14/18 14:59 36.7 65 17 137/75 (95) 98 Room Air 02/14/18 13:43 36.6 74 18 130/67 98 02/14/18 13:30 74 18 130/67 98 Room Air 02/14/18 13:03 74 18 130/77 98 Room Air Physical Exam General Appearance: WD/WN, no apparent distress Eyes: sclerae normal ENT: hearing grossly normal Neck: supple, no JVD, trachea midline Respiratory/Chest: lungs clear, normal breath sounds, no respiratory distress, no accessory muscle use Cardiovascular: regular rate, rhythm, no gallop, no murmur Abdomen: normal bowel sounds, + tenderness (L side) Extremities: no pedal edema, no calf tenderness Neurologic/Psychiatric: alert, oriented x 3 Skin: normal color, warm/dry Laboratory Results Last 24 Hours Test 02/15/18 05:53 White Blood Count 10.84 K/uL Red Blood Count 3.56 M/uL Hemoglobin 10.0 g/dL Hematocrit 30.7 % Mean Corpuscular Volume 86.2 fL Mean Corpuscular Hemoglobin 28.1 pg Mean Corpuscular Hemoglobin Concent 32.6 g/dl Platelet Count 355 K/uL Mean Platelet Volume 9.7 fL Neutrophils (%) (Auto) 84.3 % Lymphocytes (%) (Auto) 7.4 % Monocytes (%) (Auto) 7.0 % Eosinophils (%) (Auto) 0.5 % Basophils (%) (Auto) 0.3 % Neutrophils # (Auto) 9.15 K/uL Lymphocytes # (Auto) 0.80 K/uL Monocytes # (Auto) 0.76 K/uL Eosinophils # (Auto) 0.05 K/uL Basophils # (Auto) 0.03 K/uL RDW Standard Deviation 45.0 fL RDW Coefficient of Variation 14.1 % Immature Granulocyte % (Auto) 0.5 % Immature Granulocyte # (Auto) 0.05 K/uL Sodium Level 137 mmol/L Potassium Level 4.0 mmol/L Chloride Level 105 mmol/L Carbon Dioxide Level 23 mmol/L Anion Gap 9.0 mmol/L Blood Urea Nitrogen 13 mg/dl Creatinine 1.19 mg/dl Est Creatinine Clear Calc Drug Dose 56.8 ml/min Estimated GFR () 69.3 Estimated GFR (Non- 59.8 BUN/Creatinine Ratio 10.6 Random Glucose 114 mg/dl Calcium Level 8.8 mg/dl Assessment and Plan L Flank Pain with Mild Hydrouretonephrosis 2/2 Mass Effect/Tumor Scott: - UCx without growth and will monitor off antibiotics - Renal function remains appropriate and with good urine output - reports is dark in color but admits that he doesn't drink a lot of fluids like he should - Continue IVF as prescribed and will finish after 2nd bag that was initially ordered - Oxy Sustained Release 10 mg BID with Oxy IR 5-10 mg Q6H PRN; Stop Tramadol as he reports no benefit - Miralax PRN; Change Colace to Senna 17.2 mg daily - Urology following - no intervention at this time but will monitor and possible need for stent vs nephrostomy tubes if progresses - Heme/Onc following - pain regimen as above and addition of appetite stimulant GIST Tumor: - No active treatment at this time due to some intolerance and mostly toxicity - Due to see radiation onc on Friday Bipolar Disorder: STABLE - Lamtical 200 mg BID, Buproprion 150 mg daily, Ativan PRN Poor Appetite/Food Adversion: - Marinol 2.5 mg BID and if tolerates can increase dosing to get full effect DVT Prophylaxis: Lovenox Code Status: DNR Disposition: Possible D/C Friday pending appropriate pain control Continued [facility] stay due to: multiple IV medications needed Discharge planning: home
[2018-02-15 14:53] VITALS: BP 106/66; PULSE 61; TEMP 36.7; O2SAT 98
[2018-02-15] MEDS: OXYCODONE HCL IR 5 MG TAB (IMMEDIATE RELEASE) PO PRN (15:42)
[2018-02-15 16:00] VITALS: O2SAT 98
[2018-02-15] MEDS: ENOXAPARIN 40 MG/0.4 ML SYR SQ SCH (16:41)
[2018-02-15] MEDS: BOOST PLUS VANILLA PO SCH (19:32)
[2018-02-15] MEDS: DRONABINOL 2.5 MG CAP PO SCH (20:19)
[2018-02-15] MEDS ORDERED: OXYCODONE HCL 10 MG TABCR (OXYCONTIN) PO PRN (20:45)
[2018-02-15] MEDS ORDERED: PROCHLORPERAZINE INJ 5 MG in SYRINGE 4 ML IV STA (21:09)
[2018-02-15] MEDS ORDERED: PROCHLORPERAZINE INJ 5 MG in SYRINGE 4 ML IV PRN (21:15)
[2018-02-15] MEDS: ALUMINUM/MAGNESIUM/SIMETH (MAALOX MAX) 30 ML UDC PO PRN (21:59)
[2018-02-15] MEDS: LORAZEPAM 0.5 MG TAB PO PRN (21:59)
[2018-02-15 22:56] VITALS: BP 112/60; PULSE 69; TEMP 37.4; O2SAT 97
[2018-02-16] VITALS (7 sets, daily range): BP systolic 113–134; BP diastolic 66–82; PULSE 66–78; TEMP 36.7–37.5; O2SAT 95–97
[2018-02-16] MEDS ORDERED: NURSING VERBAL MED ORDER ONE ×2 (00:15→08:45)
[2018-02-16 06:21] LABS: CALCIUM 8.7 mg/dl (8.5-10.1); CREATININE 1.37 mg/dl (0.60-1.40); POTASSIUM 3.9 mmol/L (3.5-5.1)
[2018-02-16] MEDS: MoRPHine SULFATE 4 MG/ML 1 ML CARP\\VIAL IV PRN (07:43)
[2018-02-16] MEDS: ONDANSETRON 8 MG TAB PO PRN ×2 (07:51→18:47)
[2018-02-16] MEDS: OXYCODONE HCL 10 MG TABCR (OXYCONTIN) PO SCH ×3 (08:57→21:20)
[2018-02-16] MEDS: DRONABINOL 2.5 MG CAP PO SCH ×2 (08:58→21:07)
[2018-02-16] MEDS: CHOLECALCIFEROL 1000 INTER.UNIT TAB PO SCH (08:58)
[2018-02-16] MEDS: FoLIC ACID TAB 400 MCG TAB PO SCH (08:58)
[2018-02-16] MEDS: BuPROPion XL 150 MG TABCR PO SCH (08:58)
[2018-02-16] MEDS: CYANOCOBALAMIN 500 MCG TAB (VIT B-12) PO SCH (08:58)
[2018-02-16] MEDS: PANTOprazole SOD 40 MG TAB PO SCH (08:59)
[2018-02-16] MEDS: SENNA 8.6 MG TAB PO SCH (08:59)
--- NOTE | 2018-02-16 09:11 | HEME/ONC PROGRESS NOTE ---
DATE: 02/16/2018 DIAGNOSES: 1. 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 2. Bipolar disorder. 3. Poor appetite/anorexia. 4. Gastroesophageal reflux disease. HISTORY OF PRESENT ILLNESS: Mr. Breen is a pleasant 72-year-old gentleman who was admitted to [facility] on 02/14/2018 with left flank and back pain. This gentleman has been under Dr. Moy's management, and apparently disease has proven to be refractory to all current and previous therapies. Specifically, he suffers from a significant intraabdominal tumor burden and hydronephrosis with copious use of opiate analgesics, which unfortunately have not been terribly effective. According to Dr. Moy's initial consultation, Dr. Mckenna and possibly radiation therapy are to be involved in assisting pain control. Today, the patient remains quite uncomfortable. Reviewed his current opioid regimen, and we will make appropriate change to better treat his pain. His appetite has been marginal. He offers no complaints otherwise this morning. PHYSICAL EXAMINATION: GENERAL: He is in no acute distress. VITAL SIGNS: Temperature 36.9, pulse 69, respiratory rate 16, blood pressure 117/67. SKIN: Without rash or lesion. HEENT: Oral mucosa without erythema or ulceration. NECK: Supple. HEART: Regular rate and rhythm. RESPIRATORY: Lungs are clear to auscultation bilaterally. GASTROINTESTINAL: Abdomen is soft, nontender, nondistended. EXTREMITIES: No clubbing, cyanosis, or edema. NEUROLOGIC: The patient is grossly intact. LABORATORY DATA: WBC count 10,840, hemoglobin 10, platelet count 355,000. Sodium 135, potassium 3.9, chloride 102, carbon dioxide 29, BUN 13, creatinine 1.37. IMPRESSION: Intractable pain attributable to disease progression (metastatic gastrointestinal stromal tumor). PLAN: I took over medical oncology service today and was happy to visit with Alfredito at bedside. Clearly, his pain is not yet controlled and agree with consulting Dr. Mckenna and possibly radiation oncology to explore other options. Discussed his current regimen, and clearly Alfredito is not maintaining relief throughout the entire 12-hour interval. The OxyContin dose seems to be appropriate but again does not have pain relief for the full 12 hours. Therefore, will recommend closing the interval to every 8 hours while maintaining his current breakthrough regimen. As for further treatment for the neoplasia, will defer to Dr. Moy. I have nothing further to add at this time; however, will periodically see Alfredito during his hospital stay. Appreciate your assistance in the care of Flavio Jamshid.
--- NOTE | 2018-02-16 09:26 | Progress Note ---
Subjective Date of Service: February 16, 2018. Subjective Pt evaluation today including: conversation w/ patient, chart review, lab review Voiding: no voiding problems 72 yo male with hx of bladder cancer and GIST tumor. Pt reports he feels improved, but continues to have breakthrough pain. He and his would like more consistent stable pain control throughout the day. The pt is requesting to see Dr. Mckenna while inpatient for further pain control management. The pt also reports moderate nausea earlier this morning. Denies vomiting. Nausea has improved after breakfast. Tolerating PO, but appetite is poor. Pt notes swelling of his feet this morning. Problem List Medical Problems: (1) Bronchitis Status: Acute (2) Gastrointestinal stromal tumor (GIST) Status: Acute (3) Headache Status: Acute (4) Hydronephrosis Status: Acute (5) Left-sided back pain Status: Acute (6) Lower abdominal pain Status: Acute (7) Partial small bowel obstruction Status: Acute (8) Small bowel obstruction Status: Acute Review of Systems Constitutional: No fever, No chills Respiratory: No shortness of breath Cardiac: + edema (b/l feet ), No chest pain Abdomen: No pain, No nausea, No vomiting Male : No dysuria, No hematuria Heme: No abnormal bleeding/bruising Objective Vital Signs Date Time Temp Pulse Resp B/P (MAP) Pulse Ox O2 Delivery O2 Flow Rate FiO2 02/16/18 06:59 36.9 69 16 117/67 (84) 95 Room Air 02/15/18 23:49 Room Air 02/15/18 22:56 37.4 69 14 112/60 (77) 97 Room Air 02/15/18 16:00 98 Room Air 02/15/18 14:53 36.7 61 16 106/66 (79) 98 Room Air 02/15/18 09:39 Room Air Physical Exam General Appearance: no apparent distress Eyes: normal inspection ENT: hearing grossly normal Neck: no JVD Respiratory/Chest: no respiratory distress, no accessory muscle use Cardiovascular: no JVD Extremities: + swelling (non-pitting mild edema of b/l feet) Neurologic/Psychiatric: alert, normal mood/affect, oriented x 3 Skin: normal color Laboratory Results Last 24 Hours Test 02/16/18 05:32 Sodium Level 135 mmol/L Potassium Level 3.9 mmol/L Chloride Level 102 mmol/L Carbon Dioxide Level 29 mmol/L Anion Gap 4.0 mmol/L Blood Urea Nitrogen 13 mg/dl Creatinine 1.37 mg/dl Est Creatinine Clear Calc Drug Dose 49.4 ml/min Estimated GFR () 58.5 Estimated GFR (Non- 50.4 BUN/Creatinine Ratio 9.4 Random Glucose 100 mg/dl Calcium Level 8.7 mg/dl Assessment and Plan A/P: Pelvic tumor, mild left hydronephrosis AFVSS. Pain improving. Pt requesting to see Dr. Mckenna today. Will defer to primary service if consult desired. Cr stable. Continue to avoid surgical intervention at this time. Pt unlikely to benefit from stent placement at this time. If hydronephrosis or renal function were to worsen, would consider stent vs PCN placement. Will arrange for outpatient f/u with Dr. Villareal in the next 1-2 weeks. No further management at this time. Recall PRN issues. Thanks for allowing us to participate in this pt's care. Continued [facility] stay due to: multiple IV medications needed Discharge planning: home
[2018-02-16] MEDS: BOOST PLUS VANILLA PO SCH ×2 (10:00→19:00)
--- NOTE | 2018-02-16 13:53 | Hospitalist Progress Note ---
Hospitalist Progress Note Date of Service February 16, 2018. Subjective Pt evaluation today including: conversation w/ patient, physical exam, lab review, review of studies, conversation w/ field service consultant (Dr. Mckenna), review of inpatient medication list Voiding: no voiding problems Patient sitting in bedside chair. Feeling well. Pain is well controlled at present, but uncontrolled this AM. L flank and back region. Oncology increased OxyContin to TID and palliative started Methadone 5 mg TID Hoping for better pain control today and discharge tomorrow. Patient denies any fever, chills, sweats, lightheadedness, dizziness, vision changes, CP, palpitations, edema, SOB, wheezing, cough, abdominal pain, nausea, vomiting, diarrhea, urinary symptoms, melena, numbness/tingling, weakness, anxiety/depression, active bleeding, or new skin discoloration/changes. Medications Current Inpatient Medications Medications (Trade) Dose Ordered Sig/Sapna Route Start Time Stop Time Status Last Admin Dose Admin Enoxaparin Sodium (Lovenox Inj) 40 mg Q24H SQ 02/14/18 16:00 03/16/18 15:59 02/15/18 16:41 40 MG Acetaminophen (Tylenol Tab) 650 mg Q4H PRN PO 02/14/18 12:30 03/16/18 12:29 02/14/18 22:12 650 MG Magnesium Hydroxide (Milk Of Magnesia Susp) 30 ml Q6H PRN PO 02/14/18 12:30 03/16/18 12:29 Polyethylene (Miralax Powder Packet) 17 gm DAILY PRN PO 02/14/18 12:30 03/16/18 12:29 02/15/18 08:42 17 GM Bupropion HCl (Wellbutrin-Xl Tab) 150 mg QAM PO 02/15/18 09:00 03/17/18 08:59 02/16/18 08:58 150 MG Cholecalciferol (Vitamin D Tab) 1,000 inter.unit QAM PO 02/15/18 09:00 03/17/18 08:59 Cyanocobalamin (Vitamin B-12 Tab) 500 mcg QAM PO 02/15/18 09:00 03/17/18 08:59 Folic Acid (Folvite Tab) 400 mcg QAM PO 02/15/18 09:00 03/17/18 08:59 Lorazepam (Ativan Tab) 0.5 mg Q6H PRN PO 02/14/18 12:30 03/16/18 12:29 02/15/18 21:59 0.5 MG Ondansetron HCl (Zofran Tab) 8 mg Q6H PRN PO 02/14/18 12:30 03/16/18 12:29 02/16/18 07:51 8 MG Pantoprazole Sodium (Protonix Tab) 40 mg QAM PO 02/15/18 09:00 03/17/18 08:59 02/16/18 08:59 40 MG Lamotrigine (Lamictal Tab) 200 mg BID PO 02/14/18 21:00 03/16/18 20:59 02/16/18 08:59 200 MG Miscellaneous (Iv Fluids Completed) 1 ea PRN PRN N/A 02/14/18 15:15 02/14/19 15:14 Morphine Sulfate (MoRPHine SULFATE INJ) 4 mg Q2HWA PRN IV 02/14/18 20:00 02/28/18 12:29 02/16/18 07:43 4 MG Naloxone HCl (Narcan Inj) 0.4 mg ONE PRN IV 02/14/18 20:00 03/16/18 19:59 Oxycodone HCl (Roxicodone Immediate Rel Tab) 5 mg Q6 PRN PO 02/15/18 11:00 03/01/18 10:59 Oxycodone HCl (Roxicodone Immediate Rel Tab) 10 mg Q6 PRN PO 02/15/18 11:00 03/01/18 10:59 02/15/18 15:42 10 MG Dronabinol (Marinol Cap) 2.5 mg BID PO 02/15/18 21:00 03/17/18 20:59 02/16/18 08:58 2.5 MG Senna (Senokot Tab) 17.2 mg QAM PO 02/16/18 09:00 03/18/18 08:59 02/16/18 08:59 17.2 MG Enteral Nutritional Formula (Boost Plus Vanilla) 1 can BID@1000,1900 PO 02/15/18 19:00 03/17/18 18:59 02/16/18 10:00 1 CAN Al Hydrox/Mg Hydrox/Simethicone (Maalox Max Susp) 15 ml Q6H PRN PO 02/15/18 20:45 03/17/18 20:44 02/15/18 21:59 15 ML Prochlorperazine Edisylate 5 mg/ Syringe 5 ml @ 5 mls/min Q8H PRN IV 02/15/18 21:15 03/17/18 21:14 Oxycodone HCl (Oxycontin Tab) 10 mg Q8 PO 02/16/18 09:00 03/02/18 08:59 02/16/18 08:57 10 MG Objective Vital Signs Date Time Temp Pulse Resp B/P (MAP) Pulse Ox O2 Delivery O2 Flow Rate FiO2 02/16/18 07:35 Room Air 02/16/18 06:59 36.9 69 16 117/67 (84) 95 Room Air 02/15/18 23:49 Room Air 02/15/18 22:56 37.4 69 14 112/60 (77) 97 Room Air 02/15/18 16:00 98 Room Air 02/15/18 14:53 36.7 61 16 106/66 (79) 98 Room Air Physical Exam General Appearance: no apparent distress Eyes: normal inspection, PERRL ENT: hearing grossly normal Neck: supple Respiratory/Chest: lungs clear, no respiratory distress, no accessory muscle use Cardiovascular: regular rate, rhythm Abdomen: normal bowel sounds, non tender, soft Extremities: no pedal edema, no calf tenderness Neurologic/Psychiatric: alert, normal mood/affect, oriented x 3 Skin: normal color, warm/dry, no rash Laboratory Results Last 24 Hours Test 02/16/18 05:32 Sodium Level 135 mmol/L Potassium Level 3.9 mmol/L Chloride Level 102 mmol/L Carbon Dioxide Level 29 mmol/L Anion Gap 4.0 mmol/L Blood Urea Nitrogen 13 mg/dl Creatinine 1.37 mg/dl Est Creatinine Clear Calc Drug Dose 49.4 ml/min Estimated GFR () 58.5 Estimated GFR (Non- 50.4 BUN/Creatinine Ratio 9.4 Random Glucose 100 mg/dl Calcium Level 8.7 mg/dl Assessment and Plan 72 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 CT performed yesterday revealed increased intraabdominal tumor burden as well as possible mild left hydroureteronephrosis. L flank pain with mild hydroureteronephrosis secondary mass effect/tumor burden: - UCx without growth and will monitor off antibiotics - Treated w/ IVF - Oxy sustained release 10 mg TID with Oxy IR 5-10 mg Q6H PRN- starting Methadone 5 mg TID - Changed MiraLAX PRN to daily and continue Senna 17.2 mg daily - Urology following- no intervention at this time but will monitor and possible need for stent vs nephrostomy tubes if progresses - Heme/Onc following- pain regimen as above and addition of appetite stimulant - Palliative care consulted for additional pain management, appreciate recommendations- Start Methadone 5 mg TID (check EKG), f/u in 2 weeks GIST tumor: - No active treatment at this time due to some intolerance and mostly toxicity - Due to see radiation/onc on Friday Bipolar disorder- STABLE: Lamictal 200 mg BID, Bupropion 150 mg daily, Ativan PRN Poor appetite/food aversion: Marinol 2.5 mg BID and if tolerates can increase dosing to get full effect GERD: Protonix QAM + Zantac HS DVT Prophylaxis: Lovenox SQ daily Code status: LEVEL V, DNR Disposition: Discharge to home once pain controlled- hopefully in the next 1-2 days- PT/OT and CM consulted
--- NOTE | 2018-02-16 14:12 | Palliative Care Consultation ---
Consultation Date of Consultation: February 16, 2018. Requesting Physician: MELISA Herrera Attending Physician: Dr Lynn Reason for Consultation: Assist with pain management in a patient with cancer related pain History of Present Illness Patient seen and examined with his at bedside. Patient is a 72-year-old male, known to me from palliative care clinic. Patient has multiple cancers, the most pressing one at this time is GIST tumors in the abdomen and pelvis. He was admitted on 02/14 for severe left flank pain. Patient reports he has had this left flank pain for several weeks it was gradually increasing until on 02/14 pain escalated to a level of 15/10. Patient was on immediate release oxycodone 5 mg as needed and tramadol as needed and neither were controlling the pain. Patient had a CT scan that showed disease progression in the abdominal and pelvic cavity with left hydro-ureter/ hydronephrosis. Patient was started on Oxy Contin and this was titrated to 10 mg every 8 hours, with as needed oxycodone 10 mg. Patient has also required 4 doses of IV morphine at 4 mg per dose. Patient states his pain is fairly well controlled at this time, does note some significant sedation. Discussed at length with both patient and using methadone to help control his pain and how to titrate his long-acting and short acting oxycodone as methadone kicks in at home. Both patient and were able to repeat directions clearly. Will start methadone at 5 mg 3 times daily after obtaining a baseline EKG. Patient can be discharged on OxyContin 10 mg every 8 hours with oxycodone 10 mg as needed for breakthrough pain. is willing and able to monitor sedation and pain control, the first step would be to decrease his OxyContin to every 12 hours. Patient will follow up with me as an outpatient in 2 weeks. Patient and have contact numbers to make appointment. Past Medical/Surgical History Medical History: GIST tumors - dx 12/2014 -created with several agents, patient had poor tolerance with most agents except for Gleevec. Patient also diagnosed with prostate cancer in 2008, status post XRT, ureteral/bladder cancer status post TURBT in 2014, adenocarcinoma in the left lung diagnosed in 2015, Bhatti's esophagitis, A. fib, bipolar disorder, anxiety. Family History Positive for cancer Social History Smoking Status: Former Smoker History of Alcohol Use: Yes (1 drink A WEEK OR LESS) Drug Use: none Marital Status: Housing Status: lives with family Occupation Status: retired Review of Systems Constitutional: No fever, No chills Eyes: No worsening of vision ENT: No hearing loss Respiratory: No cough Cardiac: No chest pain Abdomen: + pain (Along the left lower flank), + nausea, + constipation Musculoskeletal: No joint pain Male : + dysuria (Now resolved) Neurologic: No memory loss Psychiatric: + anxiety, + problem reported (Bipolar disorder) Heme: No abnormal bleeding/bruising Allergies Coded Allergies: Sulfa Antibiotics (Verified Allergy, Severe, ANAPHYLAXIS, BAD RASH, ) Wasp (Verified Allergy, Severe, HIVES-EPIPEN NEEDED, 02/14/18) Doxycycline (Verified Allergy, Unknown, ITCHYNESS, 02/14/18) Phenytoin (Verified Allergy, Unknown, VERTIGO,DIZZINESS, 02/14/18) Yellow Jacket (Verified Allergy, Unknown, HIVES-SEVERE IN PAST-HAS EPIPEN , 02/14/18) Hydromorphone (Verified Adverse Reaction, Intermediate, Dizzy, 02/14/18) NSAIDs (Verified Adverse Reaction, Unknown, gi bleed, 02/14/18) Medications Current Inpatient Medications Medications (Trade) Dose Ordered Sig/Sapna Route Start Time Stop Time Status Last Admin Dose Admin Enoxaparin Sodium (Lovenox Inj) 40 mg Q24H SQ 02/14/18 16:00 03/16/18 15:59 02/15/18 16:41 40 MG Acetaminophen (Tylenol Tab) 650 mg Q4H PRN PO 02/14/18 12:30 03/16/18 12:29 02/14/18 22:12 650 MG Magnesium Hydroxide (Milk Of Magnesia Susp) 30 ml Q6H PRN PO 02/14/18 12:30 03/16/18 12:29 Bupropion HCl (Wellbutrin-Xl Tab) 150 mg QAM PO 02/15/18 09:00 03/17/18 08:59 02/16/18 08:58 150 MG Cholecalciferol (Vitamin D Tab) 1,000 inter.unit QAM PO 02/15/18 09:00 03/17/18 08:59 Cyanocobalamin (Vitamin B-12 Tab) 500 mcg QAM PO 02/15/18 09:00 03/17/18 08:59 Folic Acid (Folvite Tab) 400 mcg QAM PO 02/15/18 09:00 03/17/18 08:59 Lorazepam (Ativan Tab) 0.5 mg Q6H PRN PO 02/14/18 12:30 03/16/18 12:29 02/15/18 21:59 0.5 MG Ondansetron HCl (Zofran Tab) 8 mg Q6H PRN PO 02/14/18 12:30 03/16/18 12:29 02/16/18 07:51 8 MG Pantoprazole Sodium (Protonix Tab) 40 mg QAM PO 02/15/18 09:00 03/17/18 08:59 02/16/18 08:59 40 MG Lamotrigine (Lamictal Tab) 200 mg BID PO 02/14/18 21:00 03/16/18 20:59 02/16/18 08:59 200 MG Miscellaneous (Iv Fluids Completed) 1 ea PRN PRN N/A 02/14/18 15:15 02/14/19 15:14 Morphine Sulfate (MoRPHine SULFATE INJ) 4 mg Q2HWA PRN IV 02/14/18 20:00 02/28/18 12:29 02/16/18 07:43 4 MG Naloxone HCl (Narcan Inj) 0.4 mg ONE PRN IV 02/14/18 20:00 03/16/18 19:59 Oxycodone HCl (Roxicodone Immediate Rel Tab) 5 mg Q6 PRN PO 02/15/18 11:00 03/01/18 10:59 Oxycodone HCl (Roxicodone Immediate Rel Tab) 10 mg Q6 PRN PO 02/15/18 11:00 03/01/18 10:59 02/15/18 15:42 10 MG Dronabinol (Marinol Cap) 2.5 mg BID PO 02/15/18 21:00 03/17/18 20:59 02/16/18 08:58 2.5 MG Senna (Senokot Tab) 17.2 mg QAM PO 02/16/18 09:00 03/18/18 08:59 02/16/18 08:59 17.2 MG Enteral Nutritional Formula (Boost Plus Vanilla) 1 can BID@1000,1900 PO 5/20/18 19:00 03/17/18 18:59 02/16/18 10:00 1 CAN Al Hydrox/Mg Hydrox/Simethicone (Maalox Max Susp) 15 ml Q6H PRN PO 02/15/18 20:45 03/17/18 20:44 02/15/18 21:59 15 ML Prochlorperazine Edisylate 5 mg/ Syringe 5 ml @ 5 mls/min Q8H PRN IV 02/15/18 21:15 03/17/18 21:14 Oxycodone HCl (Oxycontin Tab) 10 mg Q8 PO 02/16/18 09:00 03/02/18 08:59 02/16/18 08:57 10 MG Ranitidine HCl (zANTac TAB) 300 mg HS PO 02/16/18 21:00 03/18/18 20:59 Methadone HCl (Dolophine Tab) 5 mg TID PO 02/16/18 14:00 03/02/18 13:59 Polyethylene (Miralax Powder Packet) 17 gm DAILY PO 02/16/18 14:00 03/16/18 12:29 UNV Physical Exam Date Time Temp Pulse Resp B/P (MAP) Pulse Ox O2 Delivery O2 Flow Rate FiO2 02/16/18 07:35 Room Air 02/16/18 06:59 36.9 69 16 117/67 (84) 95 Room Air 02/15/18 23:49 Room Air 02/15/18 22:56 37.4 69 14 112/60 (77) 97 Room Air 02/15/18 16:00 98 Room Air 02/15/18 14:53 36.7 61 16 106/66 (79) 98 Room Air General Appearance: no apparent distress (Patient slightly drowsy due to pain medication) Eyes: EOMI ENT: hearing grossly normal Neck: supple Respiratory: lungs clear, no respiratory distress Cardiovascular: regular rate, rhythm Abdomen: non tender, + pertinent finding (Able to palpate left flank with minimal discomfort) Musculoskeletal: normal strength (5/5 throughout) Neurologic/Psychiatric: oriented x 3 Skin: warm/dry Laboratory Results Last 24 Hours Test 02/16/18 05:32 Sodium Level 135 mmol/L Potassium Level 3.9 mmol/L Chloride Level 102 mmol/L Carbon Dioxide Level 29 mmol/L Anion Gap 4.0 mmol/L Blood Urea Nitrogen 13 mg/dl Creatinine 1.37 mg/dl Est Creatinine Clear Calc Drug Dose 49.4 ml/min Estimated GFR () 58.5 Estimated GFR (Non- 50.4 BUN/Creatinine Ratio 9.4 Random Glucose 100 mg/dl Calcium Level 8.7 mg/dl Assessment & Plan Palliative Performance Scale: 70 % (1) Cancer related pain Assessment & Plan: Acute exacerbation of some chronic pain related to his GIST tumors -had been well controlled prior to admission with as needed tramadol and as needed oxycodone at [address] scan showed disease progression. Further chemo is able to stabilize disease patient will still require alternate pain medication due to sedation. Discussed use of methadone at length with patient and family. Will initiate methadone 5 mg 3 times daily after obtaining a baseline EKG. Patient may continue on OxyContin 10 mg every 8 hours, may wean to every 12 hours once discharged. Continue 10 mg of oxycodone immediate release as needed. Patient will follow up as an outpatient for further titration of his methadone in 2 weeks. (2) Palliative care encounter Assessment & Plan: Patient already established in the palliative care clinic. Have met with patient and his prior to this admission, will continue to follow as an outpatient (3) Gastrointestinal stromal tumor (GIST) Status: Chronic Assessment & Plan: Diagnosed in December 2014, Dr. Moy to determine further chemo. Counseling and Coordination Total time spent 70 minutes with greater than 50% of the time spent at bedside discussing initiating methadone for pain control and developing a plan to wean oxycodone as an outpatient.
[2018-02-16] MEDS: METHADONE HCL 5 MG TAB PO SCH ×2 (14:20→21:08)
[2018-02-16] MEDS: POLYETHYLENE (MIRALAX) 17 GM PACK PO SCH (14:25)
[2018-02-16] MEDS: OXYCODONE HCL IR 5 MG TAB (IMMEDIATE RELEASE) PO PRN ×2 (15:54→23:24)
[2018-02-16] MEDS: ALUMINUM/MAGNESIUM/SIMETH (MAALOX MAX) 30 ML UDC PO PRN (15:54)
--- NOTE | 2018-02-16 16:11 | ECHOCARDIOGRAM REPORT ---
*NOTICE TO RECEIVING [employer] This information is strictly Confidential and protected under [place] law. [place] law prohibits you from making any further disclosure of this information unless further disclosure is expressly permitted by the written consent of the person to whom it pertains or is authorized by law. A general authorization for the release of medical or other information is not sufficient for this purpose. Hospital accepts no responsibility if the information is made available to any other person, INCLUDING THE PATIENT. Interpretation Summary * Name: ROSALEE VILLANUEVA Study Date: 02/16/2018 02:26 PM BP: 117/67 mmHg * Patient Location: C.MSN\S\N377\S\2 HR: 75 * : 1945 (M/d/yyyy) Gender: Male Height: 72 in * Age: 72 yrs Ethnicity: [place] Weight: 162 lb * Ordering Physician: Antoinette Cano * Referring Physician: Self, Referred * Performed By: Venus Blakely RDCS * * Reason For Study: ABNORMAL EKG * BSA: 1.9 m2 * -- Conclusions -- * Left ventricular systolic function is normal. * The left ventricular wall motion is normal. * There is mild to moderate tricuspid regurgitation. * Right ventricular systolic pressure is elevated at 40-50mmHg. Procedure Details * A complete two-dimensional transthoracic echocardiogram was performed (2D, M-mode, Doppler and color flow Doppler). Left Ventricle * The left ventricle is grossly normal size. * There is normal left ventricular wall thickness. * Ejection Fraction = 55-60%. * Left ventricular systolic function is normal. * The left ventricular wall motion is normal. * Mild basal inferior hypokinesis Right Ventricle * The right ventricle is normal in size and function. * The right ventricular systolic function is normal as assessed by tricuspid annular plane systolic excursion (TAPSE) (normal >1.5 cm). Atria * The left atrial size is normal. * Right atrial size is normal. Mitral Valve * The mitral valve anatomy is normal. * Significant mitral regurgitation is absent. Tricuspid Valve * The tricuspid valve is not well visualized, but is grossly normal. * There is mild to moderate tricuspid regurgitation. * Right ventricular systolic pressure is elevated at 40-50mmHg. Aortic Valve * The aortic valve is normal in structure and function. * No hemodynamically significant valvular aortic stenosis. * There is no significant aortic regurgitation. Pulmonic Valve * The pulmonic valve is not well visualized. Great Vessels * The aortic root is normal size. Pericardium/Pleural * There is no pericardial effusion. Great Vessels * Normal inferior vena cava diameter and respiratory variation suggests normal central venous pressure. MMode 2D Measurements and Calculations IVSd 1.0 cm IVSs 1.4 cm LVIDd 4.6 cm LVIDs 3.2 cm LVPWd 0.96 cm LVPWs 1.7 cm IVS/LVPW 1.1 FS 30.4 % EDV(Teich) 97.9 ml ESV(Teich) 41.3 ml EF(Teich) 57.8 % EDV(cubed) 98.0 ml ESV(cubed) 33.1 ml EF(cubed) 66.2 % % IVS thick 32.3 % % LVPW thick 74.6 % LV mass(C)d 158.9 grams LV mass(C)dI 81.6 grams/m\S\2 LV mass(C)s 176.8 grams LV mass(C)sI 90.8 grams/m\S\2 SV(Teich) 56.6 ml SI(Teich) 29.0 ml/m\S\2 SV(cubed) 64.9 ml SI(cubed) 33.3 ml/m\S\2 Ao root diam 3.0 cm Ao root area 7.2 cm\S\2 LA dimension 3.7 cm LA/Ao 1.2 LVAd ap4 29.9 cm\S\2 LVLd ap4 9.0 cm EDV(MOD-sp4) 82.5 ml EDV(sp4-el) 84.6 ml LVAs ap4 17.7 cm\S\2 LVLs ap4 7.2 cm ESV(MOD-sp4) 37.0 ml ESV(sp4-el) 36.9 ml EF(MOD-sp4) 55.1 % EF(sp4-el) 56.4 % LVAd ap2 33.0 cm\S\2 LVLd ap2 9.4 cm EDV(MOD-sp2) 92.3 ml EDV(sp2-el) 97.6 ml LVAs ap2 19.3 cm\S\2 LVLs ap2 8.1 cm ESV(MOD-sp2) 37.1 ml ESV(sp2-el) 38.8 ml EF(MOD-sp2) 59.8 % EF(sp2-el) 60.3 % LVLd %diff 5.1 % EDV(MOD-bp) 89.2 ml LVLs %diff 12.0 % ESV(MOD-bp) 39.8 ml EF(MOD-bp) 55.4 % SV(MOD-sp4) 45.5 ml SI(MOD-sp4) 23.3 ml/m\S\2 SV(MOD-sp2) 55.2 ml SI(MOD-sp2) 28.4 ml/m\S\2 SV(MOD-bp) 49.4 ml SI(MOD-bp) 25.3 ml/m\S\2 SV(sp4-el) 47.7 ml SI(sp4-el) 24.5 ml/m\S\2 SV(sp2-el) 58.8 ml SI(sp2-el) 30.2 ml/m\S\2 Doppler Measurements and Calculations MV E max larisa 75.0 cm/sec MV A max larisa 56.6 cm/sec MV E/A 1.3 MV dec time 0.32 sec Ao V2 max 152.4 cm/sec Ao max PG 9.3 mmHg Ao max PG (full) 2.4 mmHg LV V1 max PG 6.9 mmHg LV V1 max 130.9 cm/sec TR max larisa 305.3 cm/sec
[2018-02-16] MEDS: ENOXAPARIN 40 MG/0.4 ML SYR SQ SCH (16:25)
--- NOTE | 2018-02-16 16:45 | Cardiology Consultation ---
Cardiology Consultation Date of Consultation: February 16, 2018. Requesting Physician: Leah Reason for Consultation: Abnormal EKG Pt evaluation today including: conversation w/ patient, conversation w/ family , physical exam, chart review, lab review, review of studies, review of inpatient medication list, conversation w/ attending History of Present Illness The patient is a 72-year-old gentleman with a history several neoplasms. He was admitted to [facility] for pain control from peritoneal disease and developing hydronephrosis. 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 He has been experiencing significant left flank discomfort which is positional in nature. Patient is also known to have indigestion. He suffers from gastrointestinal diseases has been on a regimen of proton pump inhibitor and H2 blockers. He states that these symptoms are relatively mild and infrequent. Does suffer from chronic nausea and anorexia. Apparently last evening he was experiencing symptoms of indigestion and heartburn. This was improved by the administration of liquid antacids. This morning he also suffered from significant nausea and indigestion. However the symptoms are slightly different than his usual discomfort from acid reflux. He denies any symptoms of chest discomfort. He has not had chest pressure. He has not describe symptoms of worsening dyspnea. At the time of this interview this afternoon the patient has some mild left flank discomfort which is positional in nature. He is not having any current indigestion or chest discomfort. Past Medical/Surgical History GIST tumor (abdominal) Gastroesophageal reflux disease Bhatti's esophagus Bipolar disorder Chronic obstructive pulmonary disease Adenocarcinoma of the lung Hiatal hernia Prostate cancer Tubular adenoma of the colon Past surgical history: Cystoscopy Exploratory laparotomy Inguinal hernia repair Lung surgery Partial colectomy Prostatectomy Family History Cancer Noncontributory given his advanced age and comorbidities Social History Smoking Status: Former Smoker History of Alcohol Use: Yes (1 drink A WEEK OR LESS) Currently lives locally with his . Review of Systems Respiratory: No cough Cardiac: No chest pain Per HPI. Patient has notable anorexia. He has not been aware of palpitations. He does report history of syncope. These episodes involve diaphoresis and turning pale witnessed by his . All Other Systems: Reviewed and Negative Allergies Coded Allergies: Sulfa Antibiotics (Verified Allergy, Severe, ANAPHYLAXIS, BAD RASH, ) Wasp (Verified Allergy, Severe, HIVES-EPIPEN NEEDED, 02/14/18) Doxycycline (Verified Allergy, Unknown, ITCHYNESS, 02/14/18) Phenytoin (Verified Allergy, Unknown, VERTIGO,DIZZINESS, 02/14/18) Yellow Jacket (Verified Allergy, Unknown, HIVES-SEVERE IN PAST-HAS EPIPEN , 02/14/18) Hydromorphone (Verified Adverse Reaction, Intermediate, Dizzy, 02/14/18) NSAIDs (Verified Adverse Reaction, Unknown, gi bleed, 02/14/18) Medications Current Inpatient Medications Medications (Trade) Dose Ordered Sig/Aspna Route Start Time Stop Time Status Last Admin Dose Admin Enoxaparin Sodium (Lovenox Inj) 40 mg Q24H SQ 02/14/18 16:00 03/16/18 15:59 02/16/18 16:25 40 MG Acetaminophen (Tylenol Tab) 650 mg Q4H PRN PO 02/14/18 12:30 03/16/18 12:29 02/14/18 22:12 650 MG Magnesium Hydroxide (Milk Of Magnesia Susp) 30 ml Q6H PRN PO 02/14/18 12:30 03/16/18 12:29 Bupropion HCl (Wellbutrin-Xl Tab) 150 mg QAM PO 02/15/18 09:00 03/17/18 08:59 02/16/18 08:58 150 MG Cholecalciferol (Vitamin D Tab) 1,000 inter.unit QAM PO 02/15/18 09:00 03/17/18 08:59 Cyanocobalamin (Vitamin B-12 Tab) 500 mcg QAM PO 02/15/18 09:00 03/17/18 08:59 Folic Acid (Folvite Tab) 400 mcg QAM PO 02/15/18 09:00 03/17/18 08:59 Lorazepam (Ativan Tab) 0.5 mg Q6H PRN PO 02/14/18 12:30 03/16/18 12:29 02/15/18 21:59 0.5 MG Ondansetron HCl (Zofran Tab) 8 mg Q6H PRN PO 02/14/18 12:30 03/16/18 12:29 02/16/18 07:51 8 MG Pantoprazole Sodium (Protonix Tab) 40 mg QAM PO 02/15/18 09:00 03/17/18 08:59 02/16/18 08:59 40 MG Lamotrigine (Lamictal Tab) 200 mg BID PO 02/14/18 21:00 03/16/18 20:59 02/16/18 08:59 200 MG Miscellaneous (Iv Fluids Completed) 1 ea PRN PRN N/A 02/14/18 15:15 02/14/19 15:14 Morphine Sulfate (MoRPHine SULFATE INJ) 4 mg Q2HWA PRN IV 02/14/18 20:00 02/28/18 12:29 02/16/18 07:43 4 MG Naloxone HCl (Narcan Inj) 0.4 mg ONE PRN IV 02/14/18 20:00 03/16/18 19:59 Oxycodone HCl (Roxicodone Immediate Rel Tab) 5 mg Q6 PRN PO 02/15/18 11:00 03/01/18 10:59 Oxycodone HCl (Roxicodone Immediate Rel Tab) 10 mg Q6 PRN PO 02/15/18 11:00 03/01/18 10:59 02/16/18 15:54 10 MG Dronabinol (Marinol Cap) 2.5 mg BID PO 02/15/18 21:00 03/17/18 20:59 02/16/18 08:58 2.5 MG Senna (Senokot Tab) 17.2 mg QAM PO 02/16/18 09:00 03/18/18 08:59 02/16/18 08:59 17.2 MG Enteral Nutritional Formula (Boost Plus Vanilla) 1 can BID@1000,1900 PO 02/15/18 19:00 03/17/18 18:59 02/16/18 10:00 1 CAN Al Hydrox/Mg Hydrox/Simethicone (Maalox Max Susp) 15 ml Q6H PRN PO 02/15/18 20:45 03/17/18 20:44 02/16/18 15:54 15 ML Prochlorperazine Edisylate 5 mg/ Syringe 5 ml @ 5 mls/min Q8H PRN IV 02/15/18 21:15 03/17/18 21:14 Oxycodone HCl (Oxycontin Tab) 10 mg Q8 PO 02/16/18 09:00 03/02/18 08:59 02/16/18 08:57 10 MG Ranitidine HCl (zANTac TAB) 300 mg HS PO 02/16/18 21:00 03/18/18 20:59 Methadone HCl (Dolophine Tab) 5 mg TID PO 02/16/18 14:00 03/02/18 13:59 02/16/18 14:20 5 MG Polyethylene (Miralax Powder Packet) 17 gm DAILY PO 02/16/18 14:15 03/16/18 14:14 02/16/18 14:25 17 GM Physical Exam Vital Signs Past 12 Hours Date Time Temp Pulse Resp B/P (MAP) Pulse Ox O2 Delivery O2 Flow Rate FiO2 02/16/18 15:09 37.2 66 16 120/78 (92) 97 Room Air 02/16/18 07:35 Room Air 02/16/18 06:59 36.9 69 16 117/67 (84) 95 Room Air The patient is alert and oriented. Mood and affect appeared normal. He answered all questions appropriately. HEENT: Pupils are equal and reactive to light and accommodation. Extraocular movements are intact. The sclerae are anicteric. Neuro: Cranial nerves intact Neck: Patient's neck is supple. He has palpable carotid pulses bilaterally without bruits on auscultation. There is no evidence of jugular venous distention. The thyroid is not enlarged. Lungs: Clear to auscultation bilaterally. He has good air movement without use of accessory muscles. No rales wheezes or rhonchi. Cardiac: Heart demonstrates a regular rate and rhythm. Normal S1 and S2. No murmurs on examination. Pulses: The patient has palpable radial pulses bilaterally that are equal in intensity Extremities: There was no evidence of hypoperfusion. There is no cyanosis or clubbing. There is no edema. Skin: I did not appreciate any rashes on examination today. Data Laboratory Results: Last 24 Hours Test 02/16/18 05:32 02/16/18 14:08 02/16/18 16:17 Sodium Level 135 mmol/L Potassium Level 3.9 mmol/L Chloride Level 102 mmol/L Carbon Dioxide Level 29 mmol/L Anion Gap 4.0 mmol/L Blood Urea Nitrogen 13 mg/dl Creatinine 1.37 mg/dl Est Creatinine Clear Calc Drug Dose 49.4 ml/min Estimated GFR () 58.5 Estimated GFR (Non- 50.4 BUN/Creatinine Ratio 9.4 Random Glucose 100 mg/dl Calcium Level 8.7 mg/dl Creatine Kinase MB Ratio Imaging: Chest and abdomen CT was performed. This revealed progressive tumor in the abdomen with developing hydronephrosis on the left. EKG: Sinus rhythm with ST elevations in that lateral limb leads consistent with acute myocardial infarction Echocardiogram performed today revealed preserved LV systolic function without regional wall motion abnormalities. No significant valvular heart disease. Assessment & Plan 1. Acute myocardial infarction: I suspect that the patient's symptoms of indigestion earlier this morning were cardiac ischemia. The EKG is certainly consistent with acute injury. Remarkably, his echocardiogram did not demonstrate regional wall motion abnormalities or reduction in LV systolic function. He is currently symptom free. I do not believe that his current flank pain is cardiac in nature. I do not think there is any pressing indication for angiography given his absence of symptoms and preserved LV systolic function. Also, he appears to have at least a relative contraindication to anti-platelet therapy. We did discuss several options for treatment. Ideally he will be placed on telemetry to look for malignant ventricular arrhythmia secondary to his infarct. However, the patient at the time of admission wished to be DN are and would not be resuscitated from these arrhythmias in any event. He wishes to discuss this further with his . If he cannot tolerate aspirin Plavix should be considered. He should be placed on a beta-breanna if he is willing. I would suggest monitoring in the hospital for at least 3 days prior to discharge. Clearly, the patient has other comorbidities, and may wish to leave earlier than that. Discussion with the patient and his will need to be undertaken regarding his wishes in this regard. Final recommendations (depending on patient preference): Recommend transfer to telemetry Therapeutic anticoagulation with heparin or Lovenox Start beta-breanna, consider metoprolol tartrate 12.5 milligrams b.i.d. Aspirin or Plavix depending on patient's desires or contraindications.
[2018-02-16 16:55] LABS: CKMB 1.4 ng/ml (0.5-3.6)
[2018-02-16] MEDS ORDERED: CLOPIDOGREL BISULFATE 75 MG TAB PO ONE (17:00)
[2018-02-16] MEDS ORDERED: HEPARIN IV LOW DOSE NO BOLUS SCH (17:08)
[2018-02-16 18:55] LABS: BASO % 0.3 %; BASO ABS # 0.03 K/uL (0-0.2); EOS % 0.4 %; EOS ABS # 0.04 K/uL (0-0.5); HEMATOCRIT 29.4 % (42-52); HEMOGLOBIN 9.6 g/dL (14.0-18.0); IG# 0.07 K/uL (0.00-0.02); LYMPH % 10.2 %; LYMPH ABS # 1.13 K/uL (1.2-3.4); MEAN CORPUSCULAR HEMOGLOBIN 28.1 pg (25-34); MEAN PLATELET VOLUME 9.8 fL (7.4-10.4); MONO % 10.1 %; MONO ABS # 1.12 K/uL (0.11-0.59); NEUT % 78.4 %; NEUT ABS # 8.65 K/uL (1.4-6.5); PLATELET COUNT 376 K/uL (130-400); RED CELL DISTRIBUTION WIDTH CV 14.4 % (11.5-14.5); RED CELL DISTRIBUTION WIDTH SD 45.7 fL (36.4-46.3); WHITE BLOOD COUNT 11.04 K/uL (4.8-10.8)
[2018-02-16 19:06] LABS: PTT PATIENT 35.7 SECONDS (21.0-31.0)
[2018-02-16 19:18] LABS: MEAN CORPUSCULAR HGB CONC 32.7 g/dl (32-36)
[2018-02-16] MEDS ORDERED: HEPARIN 25,000 UNIT/500ML D5W 500 ML IV SCH (20:00)
[2018-02-16] MEDS ORDERED: RANITIDINE HCL 150 MG TAB PO SCH (21:00)
[2018-02-17 00:01] VITALS: O2SAT 95
[2018-02-17 00:55] LABS: CKMB 1.6 ng/ml (0.5-3.6)
[2018-02-17] MEDS: MoRPHine SULFATE 4 MG/ML 1 ML CARP\\VIAL IV PRN (02:07)
[2018-02-17 02:37] LABS: PTT PATIENT 55.1 SECONDS (21.0-31.0)
[2018-02-17 03:38] VITALS: BP 125/77; PULSE 70; TEMP 36.9; O2SAT 95
[2018-02-17] MEDS: OXYCODONE HCL 10 MG TABCR (OXYCONTIN) PO SCH (05:46)
[2018-02-17 07:11] VITALS: BP 127/78; PULSE 66; TEMP 37.3; O2SAT 95
[2018-02-17 07:50] LABS: HEMATOCRIT 30.4 % (42-52); HEMOGLOBIN 9.9 g/dL (14.0-18.0); MEAN CELL VOLUME 85.2 fL (80-100); MEAN CORPUSCULAR HEMOGLOBIN 27.7 pg (25-34); MEAN CORPUSCULAR HGB CONC 32.6 g/dl (32-36); MEAN PLATELET VOLUME 9.6 fL (7.4-10.4); PLATELET COUNT 408 K/uL (130-400); RED CELL DISTRIBUTION WIDTH CV 14.5 % (11.5-14.5); WHITE BLOOD COUNT 9.15 K/uL (4.8-10.8)
[2018-02-17 08:00] VITALS: O2SAT 96
[2018-02-17] MEDS: DRONABINOL 2.5 MG CAP PO SCH ×2 (08:14→09:00)
[2018-02-17] MEDS: OXYCODONE HCL IR 5 MG TAB (IMMEDIATE RELEASE) PO PRN ×2 (08:15→08:17)
[2018-02-17] MEDS: METHADONE HCL 5 MG TAB PO SCH (08:17)
[2018-02-17 08:21] LABS: BLOOD UREA NITROGEN 16 mg/dl (7-18); CARBON DIOXIDE 29 mmol/L (21-32); CREATININE 1.35 mg/dl (0.60-1.40); GLUCOSE 92 mg/dl (70-99); POTASSIUM 4.5 mmol/L (3.5-5.1); SODIUM 134 mmol/L (136-145)
[2018-02-17 08:28] LABS: CKMB 1.6 ng/ml (0.5-3.6)
[2018-02-17] MEDS: CHOLECALCIFEROL 1000 INTER.UNIT TAB PO SCH (08:35)
[2018-02-17] MEDS: BuPROPion XL 150 MG TABCR PO SCH (08:36)
[2018-02-17] MEDS: PANTOprazole SOD 40 MG TAB PO SCH (08:36)
[2018-02-17] MEDS: FoLIC ACID TAB 400 MCG TAB PO SCH (08:36)
[2018-02-17] MEDS: CYANOCOBALAMIN 500 MCG TAB (VIT B-12) PO SCH (08:36)
[2018-02-17] MEDS: SENNA 8.6 MG TAB PO SCH (08:37)
[2018-02-17 08:46] LABS: PTT PATIENT 45.2 SECONDS (21.0-31.0)
[2018-02-17] MEDS: POLYETHYLENE (MIRALAX) 17 GM PACK PO SCH (09:00)
[2018-02-17] MEDS ORDERED: CLOPIDOGREL BISULFATE 75 MG TAB PO SCH (09:00)
--- NOTE | 2018-02-17 09:18 | HEME/ONC PROGRESS NOTE ---
DATE: 02/17/2018 DIAGNOSES: 1. 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 2. Bipolar disorder. 3. Poor appetite/anorexia. 4. Gastroesophageal reflux disease. SUBJECTIVE: Mr. Breen is a pleasant 72-year-old gentleman who was admitted to [facility] on 02/15/2008 with left flank and back pain. According to Dr. Moy in recent radiographs, the patient suffered from significant intraabdominal tumor burden and hydronephrosis. Yesterday when I saw him, decided to adjust his long-acting opioid and closed the interval to every 8 hours. According to Mr. Breen, he feels pain management has improved modestly. He also expressed interest in going home. Unfortunately, he has not moved his bowels in several days and admits he may have suffered mild myocardial infarction yesterday. Again, Dr. Moy has another regiment planned for Mr. Breen once he is discharged and follows up. PHYSICAL EXAMINATION: GENERAL: He is in no acute distress. VITAL SIGNS: Temperature 37.3, pulse 66, respiratory rate 18, blood pressure 127/78. SKIN: Without rash or lesion. HEENT: Oral mucosa without erythema or ulceration. NECK: Supple. HEART: Regular rate and rhythm. LUNGS: Clear to auscultation bilaterally. ABDOMEN: Soft, nontender, nondistended. EXTREMITIES: No clubbing, cyanosis or edema. NEUROLOGIC: Alfredito is intact. LABORATORY DATA: WBC count 9150, hemoglobin 9.9, platelet count 408,000. Sodium 134, potassium 4.5, chloride 102, carbon dioxide 29, creatinine 1.35, BUN 16. IMPRESSION: Intractable pain attributable to disease progression (metastatic gastrointestinal stromal tumor). PLAN: I stopped by to see Alfredito at bedside again today. Manipulating the long-acting opioid seems to be effective and should continue. However, Alfredito has not moved his bowels in several days and strongly encourage incorporation of laxatives and possibly a Fleet's enema as to avoid impaction. As again as for further treatment for metastatic GIST, will defer to Dr. Moy and make plans to have him seen expediently upon discharge. I appreciate your assistance in the care of this very pleasant gentleman. [facility]Jane
--- NOTE | 2018-02-17 09:37 | Cardiology Follow-Up ---
Subjective Date of Service: February 17, 2018. Pt evaluation today including: conversation w/ patient, conversation w/ family , physical exam, chart review, lab review, review of studies, review of inpatient medication list History of Present Illness This morning the patient continues to have an element of pain. This is primarily related to left flank discomfort. He has some anorexia. He is somewhat depressed and having to stay in the hospital longer. He has not had any recurrence of his indigestion or symptoms that he had yesterday morning. Social History Smoking Status: Former Smoker History of Alcohol Use: Yes (1 drink A WEEK OR LESS) Review of Systems Respiratory: No cough Cardiac: No chest pain Per HPI. Patient has notable anorexia. He has not been aware of palpitations. He does report history of syncope. These episodes involve diaphoresis and turning pale witnessed by his . Objective Vital Signs Past 12 Hours Date Time Temp Pulse Resp B/P (MAP) Pulse Ox O2 Delivery O2 Flow Rate FiO2 02/17/18 08:00 96 Room Air 02/17/18 07:11 37.3 66 18 127/78 (94) 95 Room Air 02/17/18 03:38 36.9 70 18 125/77 (93) 95 Room Air 02/17/18 00:01 95 Room Air 02/16/18 23:05 37.5 18 124/80 (95) 95 Room Air Last Recorded Weight-Kilograms: 76.900 Physical Exam The patient is alert and oriented. Mood and affect appeared normal. He answered all questions appropriately. HEENT: Pupils are equal and reactive to light and accommodation. Extraocular movements are intact. The sclerae are anicteric. Neuro: Cranial nerves intact Data Laboratory Results: Last 24 Hours Test 02/16/18 14:08 02/16/18 16:17 02/16/18 18:43 02/17/18 00:00 Creatine Kinase MB Ratio Creatine Kinase MB 1.4 ng/ml Troponin I < 0.015 ng/ml White Blood Count 11.04 K/uL Red Blood Count 3.42 M/uL Hemoglobin 9.6 g/dL Hematocrit 29.4 % Mean Corpuscular Volume 86.0 fL Mean Corpuscular Hemoglobin 28.1 pg Mean Corpuscular Hemoglobin Concent 32.7 g/dl Platelet Count 376 K/uL Mean Platelet Volume 9.8 fL Neutrophils (%) (Auto) 78.4 % Lymphocytes (%) (Auto) 10.2 % Monocytes (%) (Auto) 10.1 % Eosinophils (%) (Auto) 0.4 % Basophils (%) (Auto) 0.3 % Neutrophils # (Auto) 8.65 K/uL Lymphocytes # (Auto) 1.13 K/uL Monocytes # (Auto) 1.12 K/uL Eosinophils # (Auto) 0.04 K/uL Basophils # (Auto) 0.03 K/uL RDW Standard Deviation 45.7 fL RDW Coefficient of Variation 14.4 % Immature Granulocyte % (Auto) 0.6 % Immature Granulocyte # (Auto) 0.07 K/uL Prothrombin Time 10.2 SECONDS Prothromb Time International Ratio 1.0 Activated Partial Thromboplast Time 35.7 SECONDS Partial Thromboplastin Ratio 1.4 Test 02/17/18 00:14 02/17/18 01:55 02/17/18 07:43 02/17/18 07:49 Creatine Kinase MB 1.6 ng/ml 1.6 ng/ml Troponin I < 0.015 ng/ml < 0.015 ng/ml Activated Partial Thromboplast Time 55.1 SECONDS 45.2 SECONDS Partial Thromboplastin Ratio 2.1 1.7 White Blood Count 9.15 K/uL Red Blood Count 3.57 M/uL Hemoglobin 9.9 g/dL Hematocrit 30.4 % Mean Corpuscular Volume 85.2 fL Mean Corpuscular Hemoglobin 27.7 pg Mean Corpuscular Hemoglobin Concent 32.6 g/dl RDW Standard Deviation 46.0 fL RDW Coefficient of Variation 14.5 % Platelet Count 408 K/uL Mean Platelet Volume 9.6 fL Sodium Level 134 mmol/L Potassium Level 4.5 mmol/L Chloride Level 102 mmol/L Carbon Dioxide Level 29 mmol/L Anion Gap 3.0 mmol/L Blood Urea Nitrogen 16 mg/dl Creatinine 1.35 mg/dl Est Creatinine Clear Calc Drug Dose 52.2 ml/min Estimated GFR () 59.5 Estimated GFR (Non- 51.4 BUN/Creatinine Ratio 11.7 Random Glucose 92 mg/dl Calcium Level 9.0 mg/dl Creatine Kinase MB Ratio Telemetry reviewed: Sinus rhythm. No arrhythmia Echocardiogram performed yesterday revealed preserved LV systolic function without regional wall motion abnormalities. No significant valvular heart disease Assessment and Plan 1. Abnormal EKG: EKG is consistent with myocardial injury. However, the patient has no evidence of injury on either echocardiogram or serum studies. While his symptoms yesterday morning could have been consistent with ischemia, perhaps they were unrelated. His EKG was certainly abnormal and I am at a loss as to why it appears so concerning. I suppose there is the possibility of a focal myocarditis or pericarditis. Coronary spasm is also a possibility, although I would have expected him to have had some acute symptoms. Even a stress induced episode should have resulted in some acute echo findings and likely an elevation in his biomarkers. In any event, given his comorbidities I do not feel he requires an extensive workup. In fact, I think we can de- escalate his therapy as he has not truly had any myocardial infarction. I would stop his heparin. I would stop his Plavix. I would not feel obligated to place him on any anti-platelet agent or even a beta-breanna at this point. From a cardiac standpoint he could be discharged.
[2018-02-17] MEDS ORDERED: RXC5 PO (09:53)
[2018-02-17] MEDS ORDERED: OXYSR10 PO (09:53)
[2018-02-17] MEDS ORDERED: SENN-61 PO (09:53)
[2018-02-17] MEDS ORDERED: DOCU-94 PO (09:53)
[2018-02-17] MEDS ORDERED: MRLP17 PO (09:53)
--- NOTE | 2018-02-17 09:59 | Discharge Instructions ---
Discharge Instructions Date of Service February 17, 2018. Admission Reason for Admission: Hydroureteronephrosis Discharge Discharge Diagnosis / Problem: Hydroureteronephrosis, cancer-related pain, abnormal EKG Discharge Goals Goal(s): Decrease discomfort, Improve function, Increase independence, Improve disease control, Learn about illness, Diagnostic testing, Therapeutic intervention, Prevent Disease Progression Activity Recommendations Activity Limitations: resume your previous activity . Instructions / Follow-Up Instructions / Follow-Up Pain control: Methadone 5 mg three times a day OxyContin 10 mg three times a day Roxicodone 10 mg every 6 hours as needed for pain control Recommended bowel regimen with narcotic use: MiraLAX daily Senokot 1 tablet at night Colace twice daily as needed for constipation Abnormal EKG: At this time, cardiology does not think further workup/intervention is required Decreased appetite: Marinol 2.5 mg twice daily Resume all other regular home medications as prescribed FOLLOW-UPS: Please follow-up with your PCP within 5-7 days Please follow-up with Dr. Mckenna within 1 week Follow-up with Dr. Villareal within 1-2 weeks Follow-up with Dr. Moy within 1 week Follow-up with Dr. Bellamy within 1 month Please follow-up/keep all of your subspecialty appointments Current Hospital Diet Patient's current hospital diet: Regular Diet Discharge Diet Recommended Diet: Regular Diet Pending Studies Studies pending at discharge: no Medical Emergencies . Who to Call and When: Medical Emergencies: If at any time you feel your situation is an emergency, please call 911 immediately. . Non-Emergent Contact Non-Emergency issues call your: Primary Care Provider, Specialist Call Non-Emergent contact if: your pain is not controlled, your pain is worsening, your pain is unusual for you, your pain is concerning you, you have any medication questions . . "Provider Documentation" section prepared by Antoinette Cano. .
[2018-02-17] MEDS ORDERED: METH10TA2 PO (10:00)
[2018-02-17] MEDS: BOOST PLUS VANILLA PO SCH (10:00)
[2018-02-17] MEDS ORDERED: METH5TAB2 PO (10:01)
[2018-02-17] MEDS ORDERED: MRN25 PO (10:04)
--- NOTE | 2018-02-17 10:13 | Discharge Summary ---
Discharge Summary Date of Service February 17, 2018. Discharge Summary Admission Date: February 14, 2018 at 13:14 Discharge Date: February 17, 2018 Discharge Disposition: Home Principal Diagnosis: cancer-related pain Problems/Secondary Diagnoses: L flank pain with mild hydroureteronephrosis secondary mass effect/tumor burden GIST tumor Bipolar disorder Poor appetite/food aversion GERD Procedures: ECHOCARDIOGRAM: Interpretation Summary * Name: ROSALEE VILLANUEVA Study Date: 02/16/2018 02:26 PM BP: 117/67 mmHg * Patient Location: .[facility] [place]\S\N377\S\2 HR: 75 * : 1945 (M/d/yyyy) Gender: Male Height: 72 in * Age: 72 yrs Ethnicity: [place] Weight: 162 lb * Ordering Physician: Antoinette Cano * Referring Physician: Self, Referred * Performed By: Venus Blakely RDCS * * Reason For Study: ABNORMAL EKG * BSA: 1.9 m2 * -- Conclusions -- * Left ventricular systolic function is normal. * The left ventricular wall motion is normal. * There is mild to moderate tricuspid regurgitation. * Right ventricular systolic pressure is elevated at 40-50mmHg. Procedure Details * A complete two-dimensional transthoracic echocardiogram was performed (2D, M-mode, Doppler and color flow Doppler). Left Ventricle * The left ventricle is grossly normal size. * There is normal left ventricular wall thickness. * Ejection Fraction = 55-60%. * Left ventricular systolic function is normal. * The left ventricular wall motion is normal. * Mild basal inferior hypokinesis Right Ventricle * The right ventricle is normal in size and function. * The right ventricular systolic function is normal as assessed by tricuspid annular plane systolic excursion (TAPSE) (normal >1.5 cm). Atria * The left atrial size is normal. * Right atrial size is normal. Mitral Valve * The mitral valve anatomy is normal. * Significant mitral regurgitation is absent. Tricuspid Valve * The tricuspid valve is not well visualized, but is grossly normal. * There is mild to moderate tricuspid regurgitation. * Right ventricular systolic pressure is elevated at 40-50mmHg. Aortic Valve * The aortic valve is normal in structure and function. * No hemodynamically significant valvular aortic stenosis. * There is no significant aortic regurgitation. Pulmonic Valve * The pulmonic valve is not well visualized. Great Vessels * The aortic root is normal size. Pericardium/Pleural * There is no pericardial effusion. Great Vessels * Normal inferior vena cava diameter and respiratory variation suggests normal central venous pressure. Consultations: Hematology/oncology Palliative care Urology Cardiology Medication Reconciliation New Medications: Docusate Sodium (Colace) 100 Mg Cap 1 CAP PO BID PRN for Constipation for 15 Days, #30 CAP Methadone Hcl (Dolophine) 5 Mg Tab 5 MG PO TID for 3 Days, #9 TAB Oxycodone HCl (Oxycontin) 10 Mg Tabcr 10 MG PO Q8 for 3 Days Oxycodone HCl (Oxycodone HCl) 5 Mg Tab 10 MG PO Q6 PRN for Severe Pain for 3 Days, #24 TAB Polyethylene (Miralax) 17 Gm Pow 17 GM PO DAILY for 3 Days Senna (Senokot) 8.6 Mg Tab 17.2 MG PO QAM for 3 Days, #6 TAB Continued Medications: Acetaminophen (Tylenol) 500 Mg Tab 1000 MG PO DIRECTED PRN for Pain or Fever, TAB Alum & Mag Hydrox-Simethicone (Mylanta) 1 Yvonne Yvonne Bupropion Hcl (Wellbutrin Xl) 150 Mg Tab 150 MG PO QAM Cholecalciferol (Vitamin D3) 1,000 Unit Tab 1000 UNITS PO QAM for 90 Days, TAB 3 Refills Cyanocobalamin (Vitamin B-12) 500 Mcg Tab 500 MCG PO QAM, TAB Epinephrine (Epipen) 0.3 Mg/0.3 Ml Inj 0.3 MG IM UD PRN for ALLERGIC REACTION Folic Acid (Folvite) 400 Mcg Tab 400 MCG PO QAM, TAB Lamotrigine (Lamictal) 200 Mg Tab 200 MG PO BID, TAB Lorazepam (Ativan) 0.5 Mg Tab 0.5 MG PO Q6H PRN for Anxiety/Agitation, TAB Ondansetron Hcl (Zofran) 8 Mg Tab 8 MG PO Q6H PRN for Nausea, TAB Pantoprazole (Protonix) 40 Mg Tab 40 MG PO QAM, #30 TAB Ranitidine Hcl (Zantac) 300 Mg Tab 300 MG PO HS Sildenafil Citrate (Viagra) 50 Mg Tab 50 MG PO PRN PRN for UD, TAB Discontinued Medications: Oxycodone Ir (Roxicodone Ir) 5 Mg Tab 5-10 MG PO Q6H PRN for Pain, TAB Tramadol (Ultram) 50 Mg Tab 50 MG PO Q8H PRN for Pain, TAB Referrals At Discharge Follow up Referrals: [facility] Referral - Within a Month with Nate Bellamy MD Family Practice Referral - Within 1-2 Weeks with Balaji Mejia M.D. Oncology/Hematology Referral - Within 1 Week with Benedict Moy MD Physician Referral - Within 1 Week with Erin Mckenna M.D. Urologist Referral - Within 1-2 Weeks with Jamison Villareal M.D. Discharge Exam Review of Systems: Constitutional: No fever, No chills, No sweats, No weakness, No fatigue Eyes: No worsening of vision ENT: No hearing loss, No sore throat, No trouble swallowing Respiratory: No cough, No shortness of breath, No hemoptysis Cardiovascular: No chest pain, No edema, No palpitations Abdomen: No pain, No nausea, No vomiting, No diarrhea, No constipation Musculoskeletal: No joint pain, No muscle pain, No swelling, No calf pain Genitourinary - Male: No hematuria, No dysuria Neurologic: No weakness, No numbness/tingling Psychiatric: No depression symptoms, No anxiety Endocrine: No fatigue Hematologic / Lymphatic: No abnormal bleeding/bruising Integumentary: No rash, No itch, No new/changing skin lesions Physical Exam: General Appearance: no apparent distress Eyes: normal inspection, PERRL ENT: hearing grossly normal Neck: supple Respiratory/Chest: lungs clear, no respiratory distress, no accessory muscle use Cardiovascular: regular rate, rhythm Abdomen / GI: normal bowel sounds, non tender, soft Extremities: no calf tenderness, no pedal edema Neurologic/Psychiatric: alert, normal mood/affect, oriented x 3 Skin: normal color, warm/dry, no rash Hospital Course 72 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 CT performed yesterday revealed increased intraabdominal tumor burden as well as possible mild left hydroureteronephrosis. L flank pain with mild hydroureteronephrosis secondary mass effect/tumor burden: - UCx without growth and will monitor off antibiotics - Treated w/ IVF - Oxy sustained release 10 mg TID with Oxy IR 5-10 mg Q6H PRN + Methadone 5 mg TID- pain well controlled w/ this regimen - MiraLAX daily + Senna 17.2 mg daily + Colace BID PRN for constipation for bowel regimen w/ narcotic use - Urology following- no intervention at this time but will monitor and possible need for stent vs nephrostomy tubes if progresses, f/u outpatient in 1-2 weeks - Heme/Onc following- f/u outpatient - Palliative care consulted for additional pain management, appreciate recommendations- Start Methadone 5 mg TID (checked EKG), f/u in 2 weeks GIST tumor: - No active treatment at this time due to some intolerance and mostly toxicity - f/u w/ radiation/oncology and oncology as scheduled Abnormal EKG: - No acute events on tele - Cardiac enzymes negative - ECHO w/ preserved EF, no wall abnormalities - Cardiology consulted- no further workup/intervention inpatient, no new medications Bipolar disorder- STABLE: Lamictal 200 mg BID, Bupropion 150 mg daily, Ativan PRN Poor appetite/food aversion: Marinol 2.5 mg BID and if tolerates can increase dosing to get full effect GERD: Protonix QAM + Zantac HS DVT Prophylaxis: Lovenox SQ daily Code status: LEVEL V, DNR Disposition: Discharge to home Total Time Spent: Greater than 30 minutes This includes examination of the patient, discharge planning, medication reconciliation, and communication with other providers. Discharge Instructions Please refer to the electronic Patient Visit Report (Discharge Instructions) for additional information. Follow-Up Please follow-up with your PCP within 5-7 days Please follow-up with Dr. Mckenna within 1 week Follow-up with Dr. Villareal within 1-2 weeks Follow-up with Dr. Moy within 1 week Follow-up with Dr. Bellamy within 1 month Please follow-up/keep all of your subspecialty appointments Additional Copies To Balaji Mejia M.D.
[2018-02-17 10:41] VITALS: BP 127/78; PULSE 66; TEMP 37.3; O2SAT 96
[2018-02-17 11:28] VITALS: BP 134/76; PULSE 62; TEMP 37; O2SAT 98
--- NOTE | 2018-02-17 15:43 | Palliative Care Progress Note ---
Palliative Care Progress Note Date of Service February 17, 2018. Subjective Pt evaluation today including: conversation w/ patient, conversation w/ family , physical exam, conversation w/ mgmt consultant, review of inpatient medication list Pain: Much improved PO Intake: Good Voiding: no voiding problems Patient states he feels more drowsy today, methadone was started last p.m. Patient and aware that the methadone may potentiate his OxyContin, will have him decrease from every 8 back to every 12 hours for the OxyContin, continues oxycodone for breakthrough. Discussed with the and patient further weaning of the OxyContin as the methadone kicks in. Patient will make an appointment for follow-up in 2 weeks and palliative clinic. Prescription for OxyContin 10 mg twice daily and methadone 5 mg 3 times daily given to the Review of Systems Constitutional: No fever, No chills Eyes: No worsening of vision ENT: No hearing loss Respiratory: No cough Cardiac: No chest pain Abdomen: + pain (Left flank pain improved), No nausea Male : No dysuria Neurologic: + problem reported (Slightly sedated), No memory loss Objective Vital Signs Date Time Temp Pulse Resp B/P (MAP) Pulse Ox O2 Delivery O2 Flow Rate FiO2 02/17/18 11:28 37.0 62 94 134/76 (95) 98 02/17/18 10:41 37.3 66 18 96 Room Air 02/17/18 08:00 96 Room Air 02/17/18 07:11 37.3 66 18 127/78 (94) 95 Room Air 02/17/18 03:38 36.9 70 18 125/77 (93) 95 Room Air 02/17/18 00:01 95 Room Air 02/16/18 23:05 37.5 18 124/80 (95) 95 Room Air 02/16/18 20:57 36.7 78 18 134/82 (99) 95 Room Air 02/16/18 20:16 37.2 72 17 02/16/18 17:54 96 Room Air 02/16/18 17:51 72 17 113/66 (82) Room Air 02/16/18 16:00 Room Air Physical Exam General Appearance: no apparent distress Eyes: EOMI ENT: hearing grossly normal Neck: supple Respiratory/Chest: no respiratory distress Cardiovascular: + pertinent finding (Slight increase in lower extremity edema) Abdomen: + pertinent finding (Not distended) Extremities: normal range of motion Neurologic/Psychiatric: + pertinent finding (Slightly sedated due to pain medication) Skin: + pertinent finding (No increase in pallor) Laboratory Results Last 24 Hours Test 02/16/18 16:17 02/16/18 18:43 02/17/18 00:00 02/17/18 00:14 Creatine Kinase MB 1.4 ng/ml 1.6 ng/ml Troponin I < 0.015 ng/ml < 0.015 ng/ml White Blood Count 11.04 K/uL Red Blood Count 3.42 M/uL Hemoglobin 9.6 g/dL Hematocrit 29.4 % Mean Corpuscular Volume 86.0 fL Mean Corpuscular Hemoglobin 28.1 pg Mean Corpuscular Hemoglobin Concent 32.7 g/dl Platelet Count 376 K/uL Mean Platelet Volume 9.8 fL Neutrophils (%) (Auto) 78.4 % Lymphocytes (%) (Auto) 10.2 % Monocytes (%) (Auto) 10.1 % Eosinophils (%) (Auto) 0.4 % Basophils (%) (Auto) 0.3 % Neutrophils # (Auto) 8.65 K/uL Lymphocytes # (Auto) 1.13 K/uL Monocytes # (Auto) 1.12 K/uL Eosinophils # (Auto) 0.04 K/uL Basophils # (Auto) 0.03 K/uL RDW Standard Deviation 45.7 fL RDW Coefficient of Variation 14.4 % Immature Granulocyte % (Auto) 0.6 % Immature Granulocyte # (Auto) 0.07 K/uL Prothrombin Time 10.2 SECONDS Prothromb Time International Ratio 1.0 Activated Partial Thromboplast Time 35.7 SECONDS Partial Thromboplastin Ratio 1.4 Creatine Kinase MB Ratio Test 02/17/18 01:55 02/17/18 07:43 02/17/18 07:49 Activated Partial Thromboplast Time 55.1 SECONDS 45.2 SECONDS Partial Thromboplastin Ratio 2.1 1.7 White Blood Count 9.15 K/uL Red Blood Count 3.57 M/uL Hemoglobin 9.9 g/dL Hematocrit 30.4 % Mean Corpuscular Volume 85.2 fL Mean Corpuscular Hemoglobin 27.7 pg Mean Corpuscular Hemoglobin Concent 32.6 g/dl RDW Standard Deviation 46.0 fL RDW Coefficient of Variation 14.5 % Platelet Count 408 K/uL Mean Platelet Volume 9.6 fL Sodium Level 134 mmol/L Potassium Level 4.5 mmol/L Chloride Level 102 mmol/L Carbon Dioxide Level 29 mmol/L Anion Gap 3.0 mmol/L Blood Urea Nitrogen 16 mg/dl Creatinine 1.35 mg/dl Est Creatinine Clear Calc Drug Dose 52.2 ml/min Estimated GFR () 59.5 Estimated GFR (Non- 51.4 BUN/Creatinine Ratio 11.7 Random Glucose 92 mg/dl Calcium Level 9.0 mg/dl Creatine Kinase MB 1.6 ng/ml Creatine Kinase MB Ratio Troponin I < 0.015 ng/ml Assessment and Plan (1) Cancer related pain Assessment & Plan: Pain control improved with initiation of methadone, increased sedation due to potentiation of OxyContin. With continue methadone 5 mg 3 times daily and decrease OxyContin to 10 mg every 12. Instructions related to and patient, both patient and voiced complete understanding of plan, follow-up in clinic in 2 weeks (2) Palliative care encounter Assessment & Plan: Patient is an established patient in palliative clinic, follow-up in 2 weeks (3) Gastrointestinal stromal tumor (GIST) Status: Chronic Assessment & Plan: Increase and tumor sizes, continue pain control Palliative Performance Scale: 70 % Continued [facility] stay due to: multiple IV medications needed Discharge planning: home Counseling and Coordination Total time 35 minutes with greater than 50% of the time spent at bedside reviewing med changes and plan of care.
== END 2018-02-17 11:55 | disposition home or self-care (01) | DRG 543 ==
LOC: C.EDB 09:53 → ENRESERV 13:08 → C.MSN 13:14 → CANBEDREQ 02-16 17:01 → ENRESERV 02-16 19:56 → C.2T 02-16 20:45
PROVIDERS: ADMIT Internal Medicine; ATTEND Hospitalist
DX: C49.A0 Gastrointestinal stromal tumor, unspecified site (principal); N13.30 Unspecified hydronephrosis; C78.6 Secondary malignant neoplasm of retroperitoneum and peritoneum; R63.0 Anorexia; K21.9 Gastro-esophageal reflux disease without esophagitis; F31.9 Bipolar disorder, unspecified; R39.15 Urgency of urination; R35.0 Frequency of micturition; G89.3 Neoplasm related pain (acute) (chronic); Z51.5 Encounter for palliative care; Z66 Do not resuscitate; Z79.899 Other long term (current) drug therapy; Z92.3 Personal history of irradiation; Z87.891 Personal history of nicotine dependence; Z88.1 Allergy status to other antibiotic agents; Z88.2 Allergy status to sulfonamides; Z88.5 Allergy status to narcotic agent; Z88.6 Allergy status to analgesic agent; Z91.030 Bee allergy status; Z85.51 Personal history of malignant neoplasm of bladder; Z85.118 Personal history of other malignant neoplasm of bronchus and lung